=== PATIENT | female | born 1940 | race Caucasian/White ===

== ENCOUNTER 2019-04-01 10:15 | Outpatient (RCR) | payer MEDICARE, SELFPAY | END 2019-04-14 00:01 | LOC: LAB 10:15 | PROVIDERS: Family Provider Nurse Practitioner Family; Visit Provider Family Medicine | DX: N39.0 Urinary tract infection, site not specified (principal) | CPT/HCPCS: 81001; 87077; 87086 ×2; 87186 ==

== ENCOUNTER 2019-04-30 19:54 | Inpatient (IN) | payer MEDICARE, SELFPAY ==
[2019-04-30 19:55] VITALS: BP 166/81; PULSE 93; RESP 18; TEMP 37.6; O2SAT 94; BMI 29.0
--- NOTE | 2019-04-30 19:55 | ED_ITS ---
Entered by Joanna Burger, acting as scribe for Tommy Rendon MD HPI - Extremity Problem General: Chief complaint: Extremity Problem,Nontraumatic Stated complaint: lower extermity problem Time Seen by Provider: 04/30/19 19:56 Source: patient and EMS Mode of arrival: EMS Limitations: no limitations History of Present Illness: HPI Narrative: 78 y/o female presents to the ED with compalint of left lower extremity problem. Pt is from [facility]. EMS reports this has been going on for about a month. Tonight she had a doppler which showed minimal vascular flow. She had no prior hx of vascular dz. Complaint: extremity pain and cold extremity Onset (ago): month(s) (1) Pain Consistency: constant Location: left and lower extremity Quality: aching and constant Relieving factors: nothing Associated symptoms: Deny chest pain, fever(s) or rash Review of Systems Const: Denies: fever or chills Eyes: Denies: change in vision ENMT: Denies: throat pain or mouth pain Card: Denies: chest pain Resp: Denies: shortness of breath GI: Denies: abdominal pain, nausea, vomiting or diarrhea : Denies: difficulty urinating Musc: Denies: back pain or joint pain Skin/Breast: Denies: rash Neuro: Denies: headache or behavioral changes Psych: Denies: depression Endo: Denies: excessive urination Lloyd/Lymph: Denies: easy bruising All/Imm: Denies: hives PFSH ED PFSH: Statuses (acute, chronic, etc) shown below reflect problem list status as previously entered and may not be historically accurate Social History Smoking and tobacco status: former smoker Physical Exam Const: COMMON NORMALS: no apparent distress, oriented x3 and healthy appearing HENMT: COMMON NORMALS: normocephalic and external nose normal HEAD & SCALP: normocephalic NOSE: external nose normal Eye: COMMON NORMALS: PERRL PUPIL: Yes PERRL Neck/C-Spine: COMMON NORMALS: full ROM and no lymphadenopathy Chest: COMMONS NORMALS: inspection of chest normal Resp: COMMON NORMALS: normal respiratory effort, no use of accessory muscles and clear to auscultation bilaterally AUSCULTATION: clear to auscultation bilaterally Cardio: COMMON NORMALS: regular rate and regular rhythm RATE: regular rate RHYTHM: regular rhythm GI: COMMON NORMALS: normal to inspection, nondistended, normoactive bowel sounds, soft to palpation, non-tender and no masses PALPATION: Yes soft Back/Pelvis: THORACIC SPINE/UPPER BACK: Yes normal to inspection Extremity: GENERAL: Yes cyanosis (left LE) LEFT LOWER EXTREMITY: Yes ankle joint and Yes foot & digits OTHER: foot chilled, to the touch, minimal pulse Neuro: COMMON NORMALS: oriented x3 Psych: COMMON NORMALS: mental status grossly normal and cooperative Skin: COMMON NORMALS: negative for no mottling Course Vital Signs: Vital signs: Vital Signs Temperature 98.0 F 04/30/19 21:07 Pulse Rate 88 04/30/19 22:22 Respiratory Rate 16 04/30/19 22:22 Blood Pressure 129/74 04/30/19 22:22 Pulse Oximetry 92 04/30/19 22:22 MDM - Extremity (Nontraumatic) MDM Narrative: Medical decision making narrative: Patient presents here with left lower extremity pain. Ultrasound does show limited flow in femoral artery with slight flow in per posterior tibial artery and no flow in pedal artery. Patient also has DVT in popliteal. I spoke to Dr. Jean-Baptiste of cardiology and will admit on heparin he is going to take the Animation Producer tomorrow for possible stenti ng. Spoke to hospitalist will admit patient overnight. Patient is been stable here. Patient has no signs of acute ischemic emboli event. Lab Data: Labs: Lab Results 04/30/19 04/30/19 04/30/19 Range/Units 19:42 19:42 19:42 WBC 8.4 (4.0-10.0) 10^3/ uL RBC 3.32 L (4.1-5.3) 10^6/u L Hgb 9.5 L (11.5-15.3) g/dL Hct 29.7 L (37.0-47.0) % MCV 89.5 (81-99) fL MCH 28.6 (28.0-34.0) pg MCHC 32.0 (30.0-36.0) g/dL RDW 13.1 (12.1-15.1) % Plt Count 278 (130-400) 10^3/c mm MPV 9.0 (7.4-10.4) fL Neut % (Auto) 74.3 % Lymph % (Auto) 16.5 % [place] % (Auto) 8.3 % Eos % (Auto) 0.6 % Baso % (Auto) 0.1 % Neut # (Auto) 6.3 (1.8-7.7) 10^3/u L Lymph # (Auto) 1.4 (0.8-4.8) 10^3/u L [place] # (Auto) 0.7 (0.2-0.9) 10^3/u L Eos # (Auto) 0.1 (0.0-0.8) 10^3/u L Baso # (Auto) 0.0 (0.0-0.1) 10^3/u L Nucleated RBC % (a uto) 0 % Nucleated RBCs # 0.0 /100WBC PT 13.80 H (10.5-13.3) SECO NDS INR 1.02 (0.8-1.2) Sodium 129 L (136-145) mmol/L Potassium 4.9 (3.5-5.1) mmol/L Chloride 90 L (98-107) mmol/L Carbon Dioxide 26 (22-29) mmol/L Anion Gap 17.9 (5-19) BUN 40 H (8-23) mg/dL Creatinine 1.0 H (0.5-0.9) mg/dL Glucose 155 H (74-106) mg/dL Calcium 10.2 (8.8-10.2) mg/Dl 04/30/19 Range/Units 21:17 WBC (4.0-10.0) 10^3/ uL RBC (4.1-5.3) 10^6/u L Hgb (11.5-15.3) g/dL Hct (37.0-47.0) % MCV (81-99) fL MCH (28.0-34.0) pg MCHC (30.0-36.0) g/dL RDW (12.1-15.1) % Plt Count 236 (130-400) 10^3/c mm MPV (7.4-10.4) fL Neut % (Auto) % Lymph % (Auto) % [place] % (Auto) % Eos % (Auto) % Baso % (Auto) % Neut # (Auto) (1.8-7.7) 10^3/u L Lymph # (Auto) (0.8-4.8) 10^3/u L [place] # (Auto) (0.2-0.9) 10^3/u L Eos # (Auto) (0.0-0.8) 10^3/u L Baso # (Auto) (0.0-0.1) 10^3/u L Nucleated RBC % (a uto) % Nucleated RBCs # /100WBC PT (10.5-13.3) SECO NDS INR (0.8-1.2) Sodium (136-145) mmol/L Potassium (3.5-5.1) mmol/L Chloride (98-107) mmol/L Carbon Dioxide (22-29) mmol/L Anion Gap (5-19) BUN (8-23) mg/dL Creatinine (0.5-0.9) mg/dL Glucose (74-106) mg/dL Calcium (8.8-10.2) mg/Dl Discharge Plan Discharge Admit Provider: Lisa Mclean Coding Level of Care Code ED Food Service Specialist for Chg Fwd Exam Problem Focused The documentation recorded by the Tao simon Ashley, accurately reflects the service I personally performed and the decisions made by me, Tommy Rendon MD Apr 30, 2019 19:54
--- NOTE | 2019-04-30 19:56 | USCV_ITS ---
Keya De La Cruz Age: 78 Gender: F : 1940 Exam Date: 04/30/2019 20:20 Ordering Phys: Tommy Rendon MD Technologist: Vinod Parrish [place] [facility] [place] Indication: LT LEG PAIN AND SWELLING HISTORY: Lower extremity swelling. PROCEDURES: Venous duplex imaging was performed in only the left lower extremity. The following venous structures were evaluated: common femoral vein, profunda vein, proximal portion of the greater saphenous vein, superficial femoral vein, and the popliteal vein. In addition, the posterior tibial and peroneal trunk were evaluated. FINDINGS: THERE IS NON OCCULDING DVT IN THE LT FEM VEIN AND LT POPLETEAL. Echogenic material was noted in the femoral and popliteal vein on the left side which were partially compressible CONCLUSIONS Features of deep vein thrombosis involving the left femoral and popliteal veins causing partial occlusion No similar previous studies available for comparison Dr Abdirizak Catherine MD [facility] (Electronically Signed) Final Date: 01 May 2019 01:20 S
--- NOTE | 2019-04-30 19:56 | USCV_ITS ---
Keya De La Cruz Age: 78 Gender: F : 1940 Exam Date: 04/30/2019 20:11 Ordering Phys: Tommy Rendon MD Technologist: Vinod Parrish Exam Location: [facility] [place] Indication: COLD PAINFULL LT FOOT Risk Factors: Previous Vascular Surgery: RIGHT LEFT BP: 134.0 / 74.00 BP: 134.0/ 72.00 0 0 Waveform Velocity (cm/s) Velocity (cm/s) Waveform Iliac Prox 60.7 Biphasic Iliac Mid 72.5 Biphasic Iliac Distal 72.0 Biphasic CAREER COUNSELOR Monophasic 397.0 SFA Prox 69.1 Monophasic SFA Mid 58.6 Monophasic SFA Dist 54.1 Monophasic POP 14.0 Monophasic COOK CHEF N/A DPA 10.9 Monophasic FINDINGS 90 PERCENT STENOSIS IN LT CAREER COUNSELOR NO FLOW IN LT COOK CHEF TRICKLE FLOW IN LT COOK CHEF. PATIENT COULD NOT TOLERATE FARHAN. Markedly elevated Doppler velocity at the level of the common femoral artery Monophasic and continuous Doppler waveforms in the superficial femoral, popliteal and infrapopliteal vessels CONCLUSIONS 1. Features of high-grade stenosis at the level of the common femoral artery on the left side with possible collateral filling in the femoral, popliteal and infrapopliteal vessels. 2. Possible total occlusion of the posterior tibial artery on the left side. No similar previous studies available for comparison Dr Abdirizak Catherine MD [facility] (Electronically Signed) Final Date: 01 May 2019 01:16 S
--- NOTE | 2019-04-30 20:07 | PC.NURSE ---
unable to assess SI/[place] scale due to patient condition.
[2019-04-30 20:23] LABS: Basophils % 0.1 %; Eosinophils # 0.1 10^3/uL (0.0-0.8); Eosinophils % 0.6 %; Hematocrit 29.7 % (37.0-47.0); Hemoglobin 9.5 g/dL (11.5-15.3); Lymphocytes # 1.4 10^3/uL (0.8-4.8); Lymphocytes % 16.5 %; Mean Corpuscular Hemoglobin 28.6 pg (28.0-34.0); Mean Corpuscular Volume 89.5 fL (81-99); Monocytes # 0.7 10^3/uL (0.2-0.9); Monocytes % 8.3 %; Neutrophils # 6.3 10^3/uL (1.8-7.7); Neutrophils % 74.3 %; Nucleated Red Blood Cells % 0 %; Platelet Count 278 10^3/cmm (130-400); Red Blood Count 3.32 10^6/uL (4.1-5.3); Red Cell Distribution Width 13.1 % (12.1-15.1); White Blood Count 8.4 10^3/uL (4.0-10.0)
[2019-04-30 20:27] LABS: INR 1.02 (0.8-1.2)
[2019-04-30 20:37] LABS: Anion Gap 17.9 (5-19); Blood Urea Nitrogen 40 mg/dL (8-23); Calcium 10.2 mg/Dl (8.8-10.2); Carbon Dioxide 26 mmol/L (22-29); Chloride 90 mmol/L (98-107); Glucose 155 mg/dL (74-106); Potassium 4.9 mmol/L (3.5-5.1); Sodium 129 mmol/L (136-145)
[2019-04-30 21:07] VITALS: BP 134/69; PULSE 97; RESP 16; TEMP 36.7; O2SAT 95
[2019-04-30 21:23] LABS: Platelet Count 236 10^3/cmm (130-400)
[2019-04-30] MEDS: heparin 5,000 unit/mL INJ 1 mL 4000 UNIT IVP (21:51)
[2019-04-30] MEDS: heparin drip 25,000 UNIT/500 ML PREMIX 19.6 UNIT IV (21:53)
[2019-04-30 22:22] VITALS: BP 129/74; PULSE 88; RESP 16; O2SAT 92
--- NOTE | 2019-04-30 23:02 | PM.HP ---
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 for evaluation of left lower extremity pain and swelling that has been ongoing for several days now. History obtained from daughters at bedside as patient has underlying dementia and is a poor historian. Some collateral information obtained from review of medical record and skilled nursing documentation. Daughter who also works at the skilled nursing states that patient has had intermittent left lower extremity pain and some swelling in approximately a week ago had an arterial and venous duplex done which from verbal report was negative. There is a report included with her skilled nursing documentation stating that she was found to have extensive bilateral peripheral vascular disease, with suggestion of high-grade stenosis involving the right HAIR TINTER and distal portion of left SFA, thrombosis of the left HOUSING MANAGER and left DPA. There is recommendation for CTA with runoff and this particular report is from scan done today. She had an echo done on 04/22 showing an ejection fraction of 55 to 60% with grade 1 diastolic dysfunction. Work-up in the ER indicates a normal white count at 8.4, hemoglobin of 9.5 with normal platelet count, sodium of 129, BUN of 40, creatinine of 1.0, blood sugar of 155, she has had an arterial and venous duplex done, report is pending but per verbal report shows concern for ischemic limb and evidence of DVT. Dr. Rendon has spoken with Dr. Lindo and plan is for angiogram in a.m., patient to be started on a heparin drip. Her left lower extremity is cooler to the touch, has some 1+ pitting edema and non-palpable though dopplerable peripheral pulses. Vital signs are stable and she is currently on room air saturating at 92%. Discussed findings of imaging with family at bedside. Confirmed that patient's CODE STATUS is DNR/DNI per paperwork provided from skilled nursing. Patient will be n.p.o. pending procedure in a.m. Review of Systems General: Reports: other (Limited as obtained from family at bedside) Const: Denies: fever, chills or change in appetite Eyes: Reports: change in vision Card: Reports: edema and swelling of feet/ankles; Denies: chest pain Resp: Denies: shortness of breath GI: Denies: abdominal pain, nausea or vomiting : Reports: urinary incontinence (At baseline) Musc: Denies: back pain Skin/Breast: Denies: rash Neuro: Reports: weakness in extremities and difficulty walking (At baseline); Denies: numbness in extremities or frequent falls Psych: Reports: memory loss (Chronic) Medications/Allergies Home Medications Medication Instructions Recorded Confirmed Last Taken Type aspirin 81 mg PO DAILY 04/30/19 04/30/19 04/30/19 History 81 mg atorvastatin 10 mg PO DAILY 04/30/19 04/30/19 04/29/19 History clopidogrel 04/30/19 04/30/19 History 75 mg clotrimazole 1 applic TOPICAL BID 04/30/19 04/30/19 04/30/19 History donepezil mg 04/30/19 04/29/19 History gabapentin 04/30/19 04/29/19 History hydrochlorothiazide 04/30/19 04/30/19 History lisinopril 04/30/19 04/29/19 History memantine mg 04/30/19 04/30/19 History polyethylene glycol 3350 04/30/19 04/30/19 History tramadol 100 mg PO DAILY 04/30/19 04/30/19 04/30/19 History venlafaxine 37.5 mg PO 04/30/19 04/30/19 History Allergies Allergy/AdvReac Type Severity Reaction Status Date / Time No Known Allergies Allergy Verified 04/30/19 20:08 PFSH Acute PFSH: Statuses (acute, chronic, etc) shown below reflect problem list status as previously entered and may not be historically accurate Medical History (Updated 04/30/19 @ 23:20 by Lisa Mclean MD) Alzheimer's dementia (Acute) CVA (cerebral vascular accident) (Acute) Depression (Acute) Hyperlipidemia (Acute) Hypertension (Acute) Peripheral vascular disease (Acute) Surgical History (Updated 04/30/19 @ 23:13 by Lisa Mclean MD) History of dilatation and curettage (Acute) Family History (Updated 04/30/19 @ 23:13 by Lisa Mclean MD) Denies family history of CAD (coronary artery disease) Stroke Social History (Updated 04/30/19 @ 23:14 by Lisa Mclean MD) Smoking and tobacco status: former smoker Quit status (tobacco): has quit using tobacco Year quit tobacco: February 2019 Alcohol intake: never Substance/Drug Use: never Housing: Retirement Vitals/I&O/Wt Last Vital Signs Temp 98.0 F 04/30/19 21:07 Pulse 88 04/30/19 22:22 Resp 16 04/30/19 22:22 BP 129/74 04/30/19 22:22 Pulse Ox 92 04/30/19 22:22 Weight last 48 hrs Weight 81.647 kg Physical Exam Const: COMMON NORMALS: no apparent distress GENERAL APPEARANCE: cooperative and comfortable ORIENTATION/CONSCIOUSNESS: Yes awake and Yes confused HENMT: COMMON NORMALS: normocephalic, head/scalp atraumatic, hearing grossly normal bilaterally and moist oral mucous membranes HEAD & SCALP: normocephalic and atraumatic Eye: COMMON NORMALS: PERRL, EOMs intact bilaterally and conjunctivae normal CONJUNCTIVA: Yes conjunctivae normal PUPIL: Yes PERRL OTHER: xanthelasma on both eyelids Neck/C-Spine: COMMON NORMALS: full ROM GENERAL: Yes normal visual inspection and Yes trachea midline Resp: COMMON NORMALS: normal respiratory effort, no retractions, no use of accessory muscles and clear to auscultation bilaterally EFFORT & INSPECTION: Yes able to speak in complete sentences, Yes symmetric chest movement and No tachypneic AUSCULTATION: clear to auscultation bilaterally Cardio: COMMON NORMALS: regular rate, regular rhythm, S1 normal heart sound, S2 normal heart sound and no murmurs RATE: regular rate RHYTHM: regular rhythm HEART SOUNDS: S1 normal and S2 normal GI: COMMON NORMALS: normal to inspection, nondistended, normoactive bowel sounds, soft to palpation and non-tender PALPATION: Yes soft Extremity: COMMON NORMALS: normal to inspection, full ROM and no calf tenderness; negative for no pedal edema GENERAL: Yes edema (1+ pitting edema of bilateral LEs), Yes mottling (LLE) and Yes pulses abnormal (in LLE) Neuro: COMMON NORMALS: moves all extremities, no focal motor deficits and no sensory deficits noted SENSORIUM/ORIENTATION: Yes alert and Yes orientation impaired SPEECH: other (speech difficult to understand) Psych: COMMON NORMALS: cooperative and affect normal SPEECH: Yes normal speech THOUGHT PROCESS: normal thought process Skin: COMMON NORMALS: no rashes or lesions noted, no jaundice, no petechiae and no mottling GENERAL SKIN EXAM: no rashes or lesions noted LESIONS: lesion noted (xanthelasma on bilateral eyelids) Data : 04/30/19 21:17 04/30/19 19:42 A&P Assessment and plan (1) Peripheral vascular disease: -noted PVD with concern for critical limb ischemia given left lower extremity which is cool to the touch, nonpalpable peripheral pulses and evidence of the same on arterial and venous duplex -Follow-up reports of arterial and venous Dopplers -Start on heparin drip due to finding of DVT and for revascularization -Pending peripheral angiogram in a.m. to be done by Dr. Lindo; keep n.p.o. after midnight -Pain control as needed -Gentle IV fluid hydration Status: Acute Code(s): I73.9 - Peripheral vascular disease, unspecified (2) Hypertension: -Has known history of hypertension, has been taking antihypertensive medications for approximately a year per daughter -Continue to monitor vital signs -Hold oral meds for now Status: Acute Qualifiers: Hypertension type: essential hypertension Qualified Code(s): I10 - Essential (primary) hypertension Code(s): I10 - Essential (primary) hypertension (3) Hyperlipidemia: -Check lipid panel in a.m. -Resume statin, will likely need to increase dose Status: Acute Qualifiers: Hyperlipidemia type: unspecified Qualified Code(s): E78.5 - Hyperlipidemia, unspecified Code(s): E78.5 - Hyperlipidemia, unspecified (4) CVA (cerebral vascular accident): -Has prior history of CVA with residual speech impairment and bilateral lower extremity weakness; occurred in February 2019 -Fall precautions Status: Acute Qualifiers: CVA mechanism: other Qualified Code(s): I63.89 - Other cerebral infarction Code(s): I63.9 - Cerebral infarction, unspecified (5) Alzheimer's dementia: -Has known history of Alzheimer's dementia -Strict fall precautions, reorient as needed Status: Acute Qualifiers: Alzheimer's disease onset: unspecified onset Dementia behavioral disturbance: without behavioral disturbance Qualified Code(s): G30.9 - Alzheimer's disease, unspecified; F02.80 - Dementia in other diseases classified elsewhere without behavioral disturbance Code(s): G30.9 - Alzheimer's disease, unspecified; F02.80 - Dementia in other diseases classified elsewhere without behavioral disturbance Additional A&P Information -Depression, anxiety -Chronic diastolic CHF, no acute exacerbation; most recent echo done in 04/22/2019 showing EF=55-60%, G1DD -LIDYA on CKD, unknown stage; baseline Cr wnl; on gentle IVF hydration. Repeat labs in AM -keep NPO for procedure in AM. Her baseline diet is mechanical soft, resume this when appropriate -is able to transfer with assistance, is otherwise chair-or bed-bound -is incontinent of urine at baseline -DVT ppx not needed as she is on heparin drip -Dispo: return to [facility] [place] -Code status: DNR/DNI; confirmed with daughters at bedside, paperwork in chart Attestations Medical Necessity Statement*: Keya De La Cruz's hospital stay will require greater than 2 midnights for acute left lower extremity DVT and critical limb ischemia requiring revascularization. Time Spent in Patient Care: Greater than 35 minutes (>than 50% of time spent in counselling and/or direct pt care on unit). Coding Level of Care Code Acute Tuft Machine Operator for Chg Fwd Diagnoses Peripheral vascular disease I73.9 Hypertension I10 Hypertension type: essential hypertension Hyperlipidemia E78.5 Hyperlipidemia type: unspecified CVA (cerebral vascular accident) I63.89 CVA mechanism: other Alzheimer's dementia G30.9; F02.80 Alzheimer's disease onset: unspecified onset Dementia behavioral disturbance: without behavioral disturbance
--- NOTE | 2019-04-30 23:15 | PM.CONSULT ---
Providers/Reason For Consult Consulting Physican/Specialty*: iNTERVENTIONAL CARDIOLOGY Reason for Consult*: CRITICAL LIMB ISCHEMIA Requesting Physcian: Dr. 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 For the last one month she has continuous pain in the leg and foot. She's not able to move her foot much she also has swelling of the left leg with DVT. Today her pain became unbearable therefore she was brought in to the emergency room. She was noted to have Motor feet. She has some paresthesia she is not able to move toes of the feet. She has absent dorsalis pedis and posterior tibial and popliteal artery pulses are full left leg. She has a good bilateral femoral pulses.In the ER vascular ultrasound was suggestive of severe iliofemoral and popliteal left side stenosis with sluggish blood flow in the foot, It also suggested patient has a DVT of the left leg. Please note that I do not have official report it was conveyed to me by ER staff and physician Review of Systems Const: Denies: fever, chills or body aches Eyes: Reports: change in vision Card: Denies: chest pain, palpitations or irregular heart rhythm Resp: Denies: shortness of breath GI: Denies: abdominal pain, nausea or vomiting Neuro: Reports: weakness in extremities; Denies: headache Meds/Allergies Home Medications and Allergies Home Medications Medication Instructions Recorded Confirmed Type aspirin 81 mg PO DAILY 04/30/19 04/30/19 History atorvastatin 10 mg PO DAILY 04/30/19 04/30/19 History clopidogrel 04/30/19 History clotrimazole 1 applic TOPICAL BID 04/30/19 04/30/19 History donepezil mg 04/30/19 History gabapentin 04/30/19 History hydrochlorothiazide 04/30/19 History lisinopril 04/30/19 History memantine mg 04/30/19 History polyethylene glycol 3350 04/30/19 History tramadol 100 mg PO DAILY 04/30/19 04/30/19 History venlafaxine 37.5 mg PO 04/30/19 History Allergies Allergy/AdvReac Type Severity Reaction Status Date / Time No Known Allergies Allergy Verified 04/30/19 20:08 Current Medications Current Medications Generic Name Dose Route Start Last Admin Trade Name Freq PRN Reason Stop Dose Admin Heparin Sodium/Sodium Chloride 25,000 unit in 500 mls @ 19.595 mls/hr 04/30/19 21:45 04/30/19 21:53 Heparin Drip IV 12 unit/kg/hr .Q24H LEANN 19.6 mls/hr Administration 12 UNIT/KG/HR PFSH Acute PFSH: Statuses (acute, chronic, etc) shown below reflect problem list status as previously entered and may not be historically accurate Medical History (Updated 04/30/19 @ 23:20 by Lisa Mclean MD) Alzheimer's dementia (Acute) CVA (cerebral vascular accident) (Acute) Depression (Acute) Hyperlipidemia (Acute) Hypertension (Acute) Peripheral vascular disease (Acute) Family History Denies family history of CAD (coronary artery disease) Stroke Social History Smoking and tobacco status: former smoker Quit status (tobacco): has quit using tobacco Year quit tobacco: February 2019 Alcohol intake: never Substance/Drug Use: never Housing: [facility] Vitals/I&O/Wt Last Vital Signs Temp 98.0 F 04/30/19 21:07 Pulse 88 04/30/19 22:22 Resp 16 04/30/19 22:22 BP 129/74 04/30/19 22:22 Pulse Ox 92 04/30/19 22:22 Weight last 48 hrs Weight 180 lb Physical Exam Narrative: EXAM NARRATIVE: GENERAL: Patient is alert, awake but not very urine. Due to underlying dementia. She has both daughter by bedside who is interpreting for her. NECK: No jugular vein distension. HEART: Regular S1 and S2. No murmur, rub or gallop. LUNGS: Clear to auscultate bilaterally. ABDOMEN: Soft, nontender and nondistended. Positive bowel sounds. No guarding, rebound or tenderness. CENTRAL NERVOUS SYSTEM: Grossly nonfocal. EXTREMITIES: Lower extremities with 1+ edema left leg. Left foot more controlled slightly cold but not good capillary refill. Left foot painful to touch. Absent dorsalis pedis and posterior tibial pulses. Absent popliteal left pulses. Positive both femoral pulses. A&P Assessment and plan (1) Critical limb ischemia with history of revascularization of same extremity: Patient has critical limb ischemia of left foot and leg. This is going on for long period of time. At this point I'm not sure how much heart foot is viable. She has underlying dementia. Both her daughters by bedside we have detailed discussion regarding risk benefit and alternative for the procedure. They would like to proceed with Peripheral angiogram and intervention . I will start her on heparin drip tonight. Pain will be controlled. She will be nothing by mouth after midnight. We'll proceed with peripheral angiogram/percutaneous angioplasty if required in the morning. Status: Acute Code(s): I99.8 - Other disorder of circulatory system; Z95.9 - Presence of cardiac and vascular implant and graft, unspecified (2) Hyperlipidemia: She will be on statin. Status: Acute Code(s): E78.5 - Hyperlipidemia, unspecified (3) Hypertension: Blood pressure is optimally controlled. Status: Acute Code(s): I10 - Essential (primary) hypertension Coding Level of Care Code Acute Professor Of Sport Management for Sai Powers History Detailed Exam Detailed Medical Decision Making Moderate Complexity Diagnoses Critical limb ischemia with history of revascularization of same extremity I99.8; Z95.9 Hyperlipidemia E78.5 Hypertension I10
[2019-04-30 23:49] VITALS: BP 137/79; PULSE 90; RESP 16; O2SAT 93
[2019-05-01] VITALS (23 sets, daily range): BP systolic 104–190; BP diastolic 53–132; PULSE 60–154; RESP 18–22; TEMP 36.3–36.6; O2SAT 93–100; BMI 29.0
[2019-05-01 00:31] LABS: Glucose Point of Care 130 mg/dL (70-110)
[2019-05-01] MEDS: sodium chloride 0.9% 1,000 ML 75 ML IV ×2 (00:43→18:04)
[2019-05-01] MEDS: atorvastatin 40 mg Tablet 20 MG PO ×2 (00:44→21:59)
[2019-05-01 04:09] LABS: Basophils % 0.2 %; Eosinophils # 0.1 10^3/uL (0.0-0.8); Eosinophils % 0.9 %; Hematocrit 27.4 % (37.0-47.0); Hemoglobin 8.8 g/dL (11.5-15.3); Lymphocytes # 1.2 10^3/uL (0.8-4.8); Lymphocytes % 22.9 %; Mean Corpuscular HGB Conc 32.1 g/dL (30.0-36.0); Mean Corpuscular Hemoglobin 28.7 pg (28.0-34.0); Mean Corpuscular Volume 89.3 fL (81-99); Mean Platelet Volume 8.9 fL (7.4-10.4); Monocytes # 0.5 10^3/uL (0.2-0.9); Monocytes % 9.3 %; Neutrophils # 3.6 10^3/uL (1.8-7.7); Neutrophils % 66.3 %; Nucleated Red Blood Cells % 0 %; Platelet Count 249 10^3/cmm (130-400); Red Blood Count 3.07 10^6/uL (4.1-5.3); Red Cell Distribution Width 13.1 % (12.1-15.1); White Blood Count 5.4 10^3/uL (4.0-10.0)
[2019-05-01 04:14] LABS: Anion Gap 15.6 (5-19); Carbon Dioxide 27 mmol/L (22-29); Chloride 97 mmol/L (98-107); Chol HDL Ratio 4.25 mg/dL (0.0-4.40); Cholesterol 204 mg/dL (0-200); Glucose 116 mg/dL (74-106); HDL Cholesterol 48 mg/dL (60-100); LDL Cholesterol Calculated 128 mg/dL (50-129); LDL HDL Ratio 2.67 RATIO (0.00-3.22); Magnesium 2.3 mg/dL (1.7-2.3); Partial Thromboplastin Time 90.7 SECONDS (23.9-36.7); Potassium 4.6 mmol/L (3.5-5.1); Sodium 135 mmol/L (136-145); Triglycerides 139 mg/dL (0-150)
[2019-05-01 05:05] LABS: Blood Urea Nitrogen 32 mg/dL (8-23)
[2019-05-01] MEDS: diphenhydrAMINE 50 mg Capsule PO (06:20)
--- NOTE | 2019-05-01 07:00 | XACV_ITS ---
Ht: 168 cm Wt: 82 kg BSA: 1.97 m2 Any Known Allergies: No known allergies Gender: Female : 1940 Exam Type: Invasive Peripheral Vascular Procedure(s): Procedure Description: Peripheral Cath Diagnostic Procedure Procedure Description: Abdominal aortic angiography Procedure Description: Lower extremities' angiography Procedure Description: Peripheral vascular Intervention Procedure Description: PV Balloon Procedure Description: PV Atherectomy Exam Priority: Routine Lower Extremity Interventional Findings Peripheral Procedure Description: Critical limb ischemia of the left foot with paresthesia, Ara grade V :Viktoriya stage IV. ProcedureRight common femoral approach was adopted. Abdominal aortic angiogram was performed which showed moderate abdominal aortic aneurysm, both renal arteries have luminal irregularity without significant stenosis #1 Right and left common iliac artery has luminal irregularity#2 Left and right external iliac artery has luminal irregularity#3 Left Profunda femoral artery is chronically 100% occluded, right profunda has luminal irregularity#5 Left and right internal iliac artery has luminal irregularities#6 Left and right common femoral artery has luminal irregularity#9 Left proximal SFA has proximal severe calcified 90% stenosis. Mid to distal left SFA is 100% chronically occluded . #10 Left popliteal arteries , left tibioperoneal trunk left peroneal and distal tibial artery is 100% occluded no flow noted below the knee. Scant flow reconstitution noted in the tibioperoneal trunk with somewhat flow towards proximal left anterior tibial artery.#12 Below the left knee no flow noted.#13 Left foot does not have circulation .#14 Rght SFA has distal moderate stenosis, right below the knee 2 vessel runoff with anterior tibial and peroneal was noted. Right posterior tibial is chronically occluded.Right femoral artery was used to approach left SFA, anterior tibial and foot arch vascular system. CSI atherectomy using 1.25mm mary was used in proximal, mid to distal left SFA, left popliteal artery and in tibio peroneal trunk into left anterior tibial vessel. Multiple balloon angioplasty of mid to distal left anterior tibial artery and foot arch was used by using 2.0 mm balloon, 4.0 ARMADA balloon was used to dilated popliteal artery and tibioperoneal trunk. Multiple balloon angioplasty of proximal and mid to distal left SFA was performed with 5.0 ARMADA balloon. Please see him mentally for all the instruments. Excellent angiographic result with good flow below the knee with one-vessel runoff was noted. At the end left foot appeared to be pink, warm moist. Palpable anterior tibial pulse and dorsalis pedis was also noted.. Recommendations 1-Return to inpatient for close monitoring and routine cath care2-Risk factor modification for secondary prevention3-Statin and aspirin 81 mg life-long, if tolerated4-Continue Eliquis for DVT and PAD along with baby Asprin and protonix5-Continue optimal medical management6-Follow up with Dr. Lindo in four weeks and your primary care in 10 days. Access Site Site: Right Femoral artery Sheath Size: 6 Fr Hemost... Success: Unsuccessful Procedure Details Findings Due to computer glitch, some notes may be out of correct sequence. Hand injection performed. Glidewire inserted. Glidewire out. Glidewire inserted at 0800. 6FR sheath exchanged for 6FR 42cm Flexor sheath at 0804. Anesthesia notified for assistance with case at 0757. BELGICA Hunter arrived to assist with sedation at 0808. Left leg runoff performed at 10mL for a total of 30mL. Seeker inserted over the glidewire at 0819. Sedation handled by Elsa Thomas CRNA starting at 0816. Wire out at 0823. Hand injection performed at 0923. Wire out 0825. Hand injection performed after wire out. Wire reinserted at 0825. Glidewire removed and Viper wire inserted at 0828. Seeker removed at 0830. [place] inserted at 0834. Atherectomy performed in the left SFA at 0837. Atherectomy performed in the Left Popliteal at 0840. Mary removed at 0841. Results checked at 0841. Seeker inserted over the wire at 0841. Seeker removed over the glidewire at 08:44:43. Family updated at 08:45:04. Balloon removed at 08:54:48. Results checked at 08:55:18. Balloon out at 09:01:01. Checking results at 10mL for a total of 30mL at 09:02:09. Seeker inserted at 09:03:57. [place] wire out and Command wire inserted 09:04:40. Seeker out at 09:06:40. Balloon out at 09:16:52. Results checked at 09:17:30. Balloon out at 09:26:15. Seeker inserted over the wire at 09:27:20. Command wire out at 09:28:07. Hand injection performed through the seeker at 09:29:17. Glidewire inserted at 09:31:09. Wire out at 09:31:54. 6FR 42cm long flexor sheath exchanged for 6FR regular sheath. Runoff of right leg performed at 10mL for a total of 30mL at 09:35:37. Procedure Consent Obtained. Pre-Procedure Time Out. Identified patient by full name and date of as verbalized by the patient/guarantor. Does the consent match the physician's order: Yes. Accurate & Complete Informed Consent: Yes. Inpatient/Outpatient History & Physical on Chart: Yes. If H&P is completed, is and addenduem needed: No; If yes, is the addendum complete: N/A. Visualize and Verify Site with Patient/Guarantor: N/A. Relevant Radiology Images available: Yes. Pre-op teaching completed and patient verbalized understanding. The risks, benefits, and alternatives of sedation and/or procedure were discussed by physician. The patient agrees to continue. Correct patient, site and procedure confirmed by cath team. Current diagnosis: Peripheral Arterial Disease. PERRLA. Strong, equal hand stock supervisor bilaterally. Lungs clear x 5 lobes. IV Site on Arrival: 20 gauge in the left anticubital. IV Fluids: 0.9% NaCl at KVO. 0 mL infused prior to recyclable materials distributor. Oxygen started at 2liters/min via nasal canula. bilateral groins was prepped with chloroprep then draped in the usual sterile fashion. Physician notified. Pre Procedural Pulses: right dorsalis pedis was Doppled. Pre Procedural Pulses: left dorsalis pedis was Absent. Pre Procedural Pulses: right posterior tibial was Doppled. Pre Procedural Pulses: left posterior tibial was Absent. Baseline sample Acquired. HR: 96 BPM. Equipment: Peripheral. Cardiac Cath Pack. ACIST Manifold Kit Model BT 2000. Heparinized Saline (2 units/mL), 1000 mL bag. Physician arrived. Physician scrubbed in. Immediate Pre-Procedure Time Out. Correct Patient: Yes; Correct Procedure: Yes; Correct Site: Yes; Correct Patient Position: Yes; Correct Supplies: Yes; Dried Flammable Prep: Yes; Blood Products Available: No;. Procedure started. Lidocaine 1% infiltrated to the right groin. Arterial access obtained with micropuncture set. A 5FR Contra catheter in over wire. Abdominal aortogram performed in AP @ 10 mL/sec for a total of 30 mL. Catheter removed over the glide wire. ACT drawn. Results 131 seconds. Therapeutic limits - pre-heparin administration 90-150 seconds and monitoring heparin during a vascular procedure >250 seconds. Side port of sheath attached to Normal Saline flush at KVO to maintain patency. Inflation number : 1 A AB [place] [employer] COUNSELOR Catheter [id number] was prepped and advanced across the Tibial Peroneal Trunk, Left , then inflated to 6 ARANZA for 2:03 seconds. Inflation number: 2 The AB [place] [employer]IAL COUNSELOR Catheter [id number] was reinflated across the Tibial Peroneal Trunk, Left, to 4 ARANZA for 1:27 seconds. Inflation number: 1 The AB [place] 35 [employer] COUNSELOR Catheter [id number] was reinflated across the Distal Superficial Femoral, Left, to 10 ARANZA for 1:03 seconds. Inflation number : 1 A AB ARMADA 14 OTW [id number] was prepped and advanced across the Distal Anterior Tibial, Left , then inflated to 8 ARANZA for 1:04 seconds. Inflation number: 2 The AB ARMADA 14 OTW [id number] was reinflated across the Distal Anterior Tibial, Left, to 12 ARANZA for 1:05 seconds. Inflation number: 3 The AB ARMADA 14 OTW [id number] was reinflated across the Distal Anterior Tibial, Left, to 12 ARANZA for 0:33 seconds. Inflation number: 4 The AB ARMADA 14 OTW [id number] was reinflated across the Distal Anterior Tibial, Left, to 13 ARANZA for 0:32 seconds. Inflation number: 5 The AB ARMADA 14 OTW [id number] was reinflated across the Distal Anterior Tibial, Left, to 2 ARANZA for 0:35 seconds. Inflation number: 6 The AB ARMADA 14 OTW [id number] was reinflated across the Distal Anterior Tibial, Left, to 8 ARANZA for 1:02 seconds. Inflation number: 7 The AB ARMADA 14 OTW [id number] was reinflated across the Distal Anterior Tibial, Left, to 8 ARANZA for 1:01 seconds. Inflation number: 8 The AB ARMADA 14 OTW [id number] was reinflated across the Distal Anterior Tibial, Left, to 8 ARANZA for 1:02 seconds. ACT drawn. Results 155 seconds. Therapeutic limits - pre-heparin administration 90-150 seconds and monitoring heparin during a vascular procedure >250 seconds. PERRLA. Strong, equal hand stock supervisor bilaterally. No VTE prophylaxis required. Medication's Wasted: Nitro = 49.7 mg. Medication's Wasted: Verapamil = 2.5 mg. Medication's Wasted: Lidocaine 1% = 10 mL. Medication's Wasted: Other = Hydralazine 10 mg. Total IV fluids: 132 mL. Contrast type used: Visipaque 320 mgI/mL, 500 mL bottle. Post-op diagnosis: Peripheral Arterial Disease. Complications: None. Vital chart was stopped. Estimated blood loss: 5mL-10mL. Procedure completed. Patient transferred by bed to 1st floor. Procedure Medications Start: 7:49 AM Stop: 7:49 AM Medication: Versed Amount: 0.5 mg Route: I.V. Start: 7:51 AM Stop: 7:51 AM Medication: Versed Amount: 0.5 mg Route: I.V. Start: 7:52 AM Stop: 7:52 AM Medication: Hydralazine Amount: 10 mg Route: I.V. Start: 7:54 AM Stop: 7:54 AM Medication: Versed Amount: 0.5 mg Route: I.V. Start: 7:55 AM Stop: 7:55 AM Medication: Lopressor (metoprolol) Amount: 5 mg Route: I.V. Start: 7:56 AM Stop: 7:56 AM Medication: Versed Amount: 0.5 mg Route: I.V. Start: 8:17 AM Stop: 8:17 AM Medication: Heparin Amount: 5000 units Route: I.V. Start: 9:28 AM Stop: 9:28 AM Medication: Nitrogylcerin Amount: 200 mcg Route: I.A. Start: 9:31 AM Stop: 9:31 AM Medication: Heparin Amount: 4000 units Route: I.V. I, the attending physician, have reviewed and verified all procedure medications. Yes, all medications given per verbal order History/Risk Factors Hypertension: Yes Dyslipidemia: Yes Peripheral Arterial Disease (PAD): Yes Myocardial Infarction (IL): No Obesity: No Renal Disease: No Tobacco Use: Current/Recent(w/in 1 year) Prior Interventions PCI: No CABG: No Valve Surgery: No Report Signatures Finalized by:Zulema Lindo MD on 05/01/2019 12:22:00 PM
[2019-05-01 07:08] LABS: Glucose Point of Care 134 mg/dL (70-110)
[2019-05-01 08:43] LABS: Estmated Average Glucose 126
--- NOTE | 2019-05-01 08:49 | PC.NURSE ---
this nurse gave report on this pt to Brooks RN on 1st floor in [facility].
--- NOTE | 2019-05-01 10:00 | PC.NURSE ---
FROM MECHANICAL INSULATOR Patient is in bed, mildy restless but eyes were closed. Pericare provided and brief change due to urine incontinence. BOTTOM HOOP DRIVER and geophysical laboratory supervisor nurses at bedside. Pt had a baseline dementia, restlessness and agitation during the procedure. Right groin site has a small and transparent dressing. no hematoma, bleeding felt around the groin area post perclose on right femoral artery by . Neurovascular checks and monitored. Pt has warmth skin on her bilateral foot, redness noted on left toes, pulses are dopplerable and left dorsalis pedis has 2+ palpable pulse with in room. Pt does have a DVT on left leg per Dr upon rounding and dgtr is aware of it. VS monitored. Dgtr instructed to keep her right leg still and bedrest for another 2-4 hrs post angiogram. bed alarm on. will monitor.
--- NOTE | 2019-05-01 10:06 | PM.PN ---
Subjective Subjective: Interval history: Patient underwent peripheral angiogram this morning for acute on chronic limb ischemia/limb salvage procedure Vitals/I&O/Wt Last Vital Signs Temp 97.8 F 05/01/19 04:00 Pulse 60 05/01/19 04:00 Resp 18 05/01/19 04:00 BP 141/67 05/01/19 04:00 Pulse Ox 94 05/01/19 04:00 04/30/19 05/01/19 05/01/19 22:59 06:59 14:59 Intake Total 555.337 / 555.337 Balance 555.337 / 555.337 Weight last 48 hrs Weight 180 lb 1 oz Weight 180 lb Physical Exam Narrative: EXAM NARRATIVE: GENERAL: Patient is alert, awake but not very urine. Due to underlying dementia. She has both daughter by bedside who is interpreting for her. NECK: No jugular vein distension. HEART: Regular S1 and S2. No murmur, rub or gallop. LUNGS: Clear to auscultate bilaterally. ABDOMEN: Soft, nontender and nondistended. Positive bowel sounds. No guarding, rebound or tenderness. CENTRAL NERVOUS SYSTEM: Grossly nonfocal. EXTREMITIES: Lower extremities with 1+ edema left leg. Left foot post procedure good Doppler anterior tib and posterior tibial pulse most likely through arch. Now foot is warm and pink Data : 05/01/19 03:40 05/01/19 03:40 A&P Assessment and plan (1) Critical limb ischemia with history of revascularization of same extremity: Patient has critical limb ischemia of left foot and leg. This is going on for long period of time. At this point I'm not sure how much her foot is viable. She has underlying dementia. Both her daughters by bedside we have detailed discussion regarding risk benefit and alternative for the procedure. They would like to proceed with Peripheral angiogram and intervention . I will start her on heparin drip tonight. Pain will be controlled. She will be nothing by mouth after midnight. We'll proceed with peripheral angiogram/percutaneous angioplasty if required in the morning. This morning patient underwent peripheral angiogram for limb salvage acute on chronic limb ischemia. She was found to have severely stenotic ostial left SFA 100% chronically occluded left profunda and 100% occluded mid to distal SFA, popliteal, tibioperoneal trunk no flow was seen below the knee. Patient underwent atherectomy of ostial mid and distal left SFA followed by atherectomy of the tibioperoneal trunk into left anterior tibial. Distal anterior tibial and arch vessels in the foot were also balloon angioplasty. Good angiographic result with congregation of flow from SFA to the foot noted. One-vessel runoff into the arch with anterior tibial was noted. Posterior tibial and peroneal chronically occluded however feels somewhat from collaterals in the mid and very distal in the foot. Postprocedure good dopplerable anterior and posterior tibial pulses were noted. Foot look good pink warm and moist. Patient has chronic anemia baseline hemoglobin around 8.8. She also has DVT. At this point we recommend transfusion followed by Eliquis which will also cover peripheral vascular disease as well. Protonix should be given as well. She also has moderate right SFA with chronic 100% occlusion of posterior tibial with good one-vessel runoff on the right side. Status: Acute Code(s): I99.8 - Other disorder of circulatory system; Z95.9 - Presence of cardiac and vascular implant and graft, unspecified (2) Hyperlipidemia: She will be on statin. Status: Acute Qualifiers: Hyperlipidemia type: unspecified Qualified Code(s): E78.5 - Hyperlipidemia, unspecified Code(s): E78.5 - Hyperlipidemia, unspecified (3) Hypertension: Blood pressure is optimally controlled. Status: Acute Qualifiers: Hypertension type: essential hypertension Qualified Code(s): I10 - Essential (primary) hypertension Code(s): I10 - Essential (primary) hypertension (4) DVT (deep venous thrombosis): Patient will be started on Eliquis as soon as she will complete bedrest. We will stop Plavix and aspirin since she is anemic at the baseline and high risk for bleeding. Status: Acute Code(s): I82.409 - Acute embolism and thrombosis of unspecified deep veins of unspecified lower extremity Attestations Medical Necessity Statement*: Patient require continuation hospitalization for above defined care. Coding Level of Care Code Acute Flange Turner for Sai Powers History Detailed Exam Detailed Medical Decision Making High Complexity Diagnoses Critical limb ischemia with history of revascularization of same extremity I99.8; Z95.9 Hyperlipidemia E78.5 Hyperlipidemia type: unspecified Hypertension I10 Hypertension type: essential hypertension DVT (deep venous thrombosis) I82.409
[2019-05-01] MEDS: TRAMadol 50 mg Tablet 100 MG PO (11:37)
[2019-05-01] MEDS: pantoprazole 40 mg SDV IVP (11:37)
[2019-05-01] MEDS: aspirin 81 mg EC Tablet PO (11:37)
[2019-05-01] MEDS: clopidogrel 75 mg Tablet PO (11:38)
[2019-05-01 11:57] LABS: Glucose Point of Care 101 mg/dL (70-110)
[2019-05-01 15:55] LABS: Glucose Point of Care 169 mg/dL (70-110)
[2019-05-01] MEDS: memantine 5 mg tablet 10 MG PO (17:51)
[2019-05-01] MEDS: gabapentin 100 mg Capsule PO (17:52)
[2019-05-01] MEDS: lisinopril 20 mg Tablet PO (17:52)
[2019-05-01 19:05] LABS: Hematocrit 27.4 % (37.0-47.0); Hemoglobin 8.6 g/dL (11.5-15.3)
--- NOTE | 2019-05-01 19:37 | PM.PN ---
Subjective Subjective: Interval history: overnight labs, H&P reviewed. Patient is s/p atheretcomy of ZAKIRusty harrison today with good peripheral flow. No acute complaints when seen this afternoon. Pain currently well controlled Medications: Reviewed: Yes Vitals/I&O/Wt Last Vital Signs Temp 97.4 F L 05/01/19 15:31 Pulse 76 05/01/19 15:31 Resp 18 05/01/19 15:31 BP 155/77 05/01/19 15:31 Pulse Ox 94 05/01/19 15:31 05/01/19 05/01/19 05/01/19 06:59 14:59 22:59 Intake Total 555.337 / 555.337 963.75 / 963.75 360 / 1323.75 Balance 555.337 / 555.337 963.75 / 963.75 360 / 1323.75 Weight last 48 hrs Weight 81.675 kg Weight 81.647 kg Physical Exam Narrative: EXAM NARRATIVE: GEn: asleep when first seen, wakes up easily to calling name, no complaints at this time CVS:S1S2 N RS: clear to auscultation B/L Abd: Soft, NT/ND, BS+ Neuro: no focal deficits Ext: Left dorsalis pedis palpabale, foot well perfused Data : 05/01/19 18:51 05/01/19 03:40 A&P Assessment and plan (1) Peripheral vascular disease: -noted PVD with concern for critical limb ischemia given left lower extremity which is cool to the touch, nonpalpable peripheral pulses and evidence of the same on arterial and venous duplex - LE duplex showed Features of high-grade stenosis at the level of the common femoral artery on the left side with possible collateral filling in the femoral, popliteal and infrapopliteal vessels and Possible total occlusion of the posterior tibial artery on the left side. Venous duplex with deep vein thrombosis involving the left femoral and popliteal veins causing partial occlusion. - s/p atherectomy earlier this afternoon with balloon dilatation - started on ASA and plavix thereafter Status: Acute Code(s): I73.9 - Peripheral vascular disease, unspecified (2) Hypertension: -Has known history of hypertension - resume oral Lisinopril. Hold HCTZ for now. 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; occurred in February 2019 -Fall precautions Status: Acute Qualifiers: CVA mechanism: other Qualified Code(s): I63.89 - Other cerebral infarction Code(s): I63.9 - Cerebral infarction, unspecified (5) Alzheimer's dementia: -Has known history of Alzheimer's dementia -Strict fall precautions, reorient as needed - resume home dose of Namenda Status: Acute Qualifiers: Alzheimer's disease onset: unspecified onset Dementia behavioral disturbance: without behavioral disturbance Qualified Code(s): G30.9 - Alzheimer's disease, unspecified; F02.80 - Dementia in other diseases classified elsewhere without behavioral disturbance Code(s): G30.9 - Alzheimer's disease, unspecified; F02.80 - Dementia in other diseases classified elsewhere without behavioral disturbance (6) DVT (deep venous thrombosis): Since patient also has DVT, will switch treatment from ASA + Plavix to ASA + Eliquis this evening with close monitoring of H&H. Transfuse packed cells if Hb <7 Status: Acute Code(s): I82.409 - Acute embolism and thrombosis of unspecified deep veins of unspecified lower extremity Additional A&P Information Tramadol for pain control. -Dispo: return to [facility] [place] -Code status: DNR/DNI; confirmed with daughters at bedside, paperwork in chart Attestations Medical Necessity Statement*: post atherectomy monitoring, managemnet of DVT Coding Level of Care Code Acute Licensed Massage Therapist for [facility] Fwd Diagnoses Peripheral vascular disease I73.9 Hypertension I10 Hypertension type: essential hypertension Hyperlipidemia E78.5 Hyperlipidemia type: unspecified CVA (cerebral vascular accident) I63.89 CVA mechanism: other Alzheimer's dementia G30.9; F02.80 Alzheimer's disease onset: unspecified onset Dementia behavioral disturbance: without behavioral disturbance DVT (deep venous thrombosis) I82.409
[2019-05-01] MEDS: donepezil 5 MG Tablet PO (21:59)
[2019-05-01 23:54] LABS: Hematocrit 27.7 % (37.0-47.0); Hemoglobin 8.6 g/dL (11.5-15.3)
[2019-05-02] VITALS (56 sets, daily range): BP systolic 97–191; BP diastolic 48–109; PULSE 58–161; RESP 18–23; TEMP 36.6–36.8; O2SAT 92–97
[2019-05-02] MEDS: acetaminophen 325 mg Tablet 650 MG PO (00:23)
[2019-05-02 05:40] LABS: Eosinophils % 0.8 %; Hematocrit 26.4 % (37.0-47.0); Hemoglobin 8.2 g/dL (11.5-15.3); Lymphocytes # 1.1 10^3/uL (0.8-4.8); Lymphocytes % 23.5 %; Mean Corpuscular HGB Conc 31.1 g/dL (30.0-36.0); Mean Corpuscular Hemoglobin 28.2 pg (28.0-34.0); Mean Corpuscular Volume 90.7 fL (81-99); Mean Platelet Volume 8.6 fL (7.4-10.4); Monocytes # 0.5 10^3/uL (0.2-0.9); Monocytes % 9.9 %; Neutrophils # 3.1 10^3/uL (1.8-7.7); Neutrophils % 65.6 %; Nucleated Red Blood Cells % 0 %; Platelet Count 244 10^3/cmm (130-400); Red Blood Count 2.91 10^6/uL (4.1-5.3); White Blood Count 4.7 10^3/uL (4.0-10.0)
[2019-05-02] MEDS: sodium chloride 0.9% 1,000 ML 75 ML IV (05:54)
[2019-05-02 06:05] LABS: Alanine Aminotransferase 14 U/L (0-33); Albumin Level 3.4 g/dL (3.5-5.2); Alkaline Phosphatase 84 IU/L (35-105); Anion Gap 12.4 (5-19); Aspartate Amino Transferase 17 U/L (0-32); Blood Urea Nitrogen 20 mg/dL (8-23); Calcium 9.5 mg/Dl (8.8-10.2); Carbon Dioxide 26 mmol/L (22-29); Chloride 102 mmol/L (98-107); Globulin 3.1 g/dL (1.3-4.6); Glucose 94 mg/dL (74-106); Potassium 4.4 mmol/L (3.5-5.1); Sodium 136 mmol/L (136-145); Total Bilirubin 0.3 mg/dL (0.15-1.2); Total Protein 6.5 g/dL (6.6-8.7)
--- NOTE | 2019-05-02 07:34 | P.PN_ITS ---
Subjective Subjective: Interval history: Patient was sent here from a group home in [place] on evening some 2 nights ago with a cold painful left foot. She was placed on heparin and then underwent catheterization yesterday with atherectomy and angioplasty. There was significant disease from the proximal SFA all the way down. Additionally, she was diagnosed with a deep vein thrombosis on the left and is on the loading dose of Eliquis. She has underlying dementia. Her daughter is in the room this morning. The patient lives in a group home where the daughter works. Her daughter is concerned that she would not be able to ride in the daughter's car when she leaves here to go back to the group home. The daughter is requesting a transport van to get her back there. The patient does not have any complaints. She is having much less pain in the left leg today. Medications: Reviewed: Yes Vitals/I&O/Wt Last Vital Signs Temp 98 F 05/02/19 04:00 Pulse 74 05/02/19 04:00 Resp 22 H 05/02/19 04:00 BP 155/69 05/02/19 04:00 Pulse Ox 93 05/02/19 04:00 05/01/19 05/02/19 05/02/19 22:59 06:59 14:59 Intake Total 420 / 1383.75 987.5 / 2371.25 Balance 420 / 1383.75 987.5 / 2371.25 Weight last 48 hrs Weight 179 lb 14.4 oz Weight 180 lb 1 oz Weight 180 lb Physical Exam Narrative: EXAM NARRATIVE: GENERAL: She appears comfortable at rest HEENT: Exam within normal limits. NECK: Supple without jugular vein distention. The carotid upstroke is normal without bruits. BACK: Exam normal. LUNGS: Clear. HEART: Regular rate and rhythm. ABDOMEN: Benign without organomegaly or tenderness. EXTREMITIES: The right groin entry site is free of significant bleeding. There is a small bruise there. There is a normal pulse in the right groin. The left leg is warm however the foot is red with some dependent rubor. There is some pain on palpation of the leg. NEUROLOGIC: Exam normal. Patient is pleasantly demented with some confusion and disorientation. There is decreased sensation in the left leg below the knee. SKIN: Unremarkable. Data : 05/02/19 05:09 05/02/19 05:09 A&P Assessment and plan (1) DVT (deep venous thrombosis): Status: Acute Qualifiers: DVT location: lower extremity Affected thrombotic vein of extremity: femoral Chronicity: chronic Laterality: left Qualified Code(s): I82.512 - Chronic embolism and thrombosis of left femoral vein Code(s): I82.409 - Acute embolism and thrombosis of unspecified deep veins of unspecified lower extremity (2) Critical limb ischemia with history of revascularization of same extremity: Status: Acute Code(s): I99.8 - Other disorder of circulatory system; Z95.9 - Presence of cardiac and vascular implant and graft, unspecified (3) Hyperlipidemia: Status: Acute Qualifiers: Hyperlipidemia type: unspecified Qualified Code(s): E78.5 - Hyperlipidemia, unspecified Code(s): E78.5 - Hyperlipidemia, unspecified (4) Peripheral vascular disease: Status: Acute Code(s): I73.9 - Peripheral vascular disease, unspecified (5) CVA (cerebral vascular accident): Status: Acute Qualifiers: CVA mechanism: other Qualified Code(s): I63.89 - Other cerebral infarction Code(s): I63.9 - Cerebral infarction, unspecified (6) Hypertension: Status: Acute Qualifiers: Hypertension type: essential hypertension Qualified Code(s): I10 - Essential (primary) hypertension Code(s): I10 - Essential (primary) hypertension (7) Alzheimer's dementia: Status: Acute Qualifiers: Alzheimer's disease onset: unspecified onset Dementia behavioral disturbance: without behavioral disturbance Qualified Code(s): G30.9 - Alzheimer's disease, unspecified; F02.80 - Dementia in other diseases classified elsewhere without behavioral disturbance Code(s): G30.9 - Alzheimer's disease, unspecified; F02.80 - Dementia in other diseases classified elsewhere without behavioral disturbance (8) Anemia: Status: Acute Code(s): D64.9 - Anemia, unspecified (9) Anticoagulation adequate: Status: Acute Code(s): Z79.01 - snf (current) use of anticoagulants (10) DNR (do not resuscitate): Status: Acute Code(s): Z66 - Do not resuscitate Additional A&P Information Patient is improved from a vascular standpoint. She could probably go back to the group home anytime. She is not particularly active. She should remain on Eliquis 10 mg twice a day for a week and then decrease the dose to 5 mg twice daily. She will follow-up with Dr. Lindo in the office. She could participate in physical therapy and occupational therapy at the group home. Attestations Medical Necessity Statement*: Not applicable Coding Level of Care Code Acute Ladies' Locker Room Attendant for [facility] Fwd History Detailed Exam Detailed Medical Decision Making Moderate Complexity Diagnoses DVT (deep venous thrombosis) I82.512 DVT location: lower extremity Affected thrombotic vein of extremity: femoral Chronicity: chronic Laterality: left Critical limb ischemia with history of revascularization of same extremity I99.8; Z95.9 Hyperlipidemia E78.5 Hyperlipidemia type: unspecified Peripheral vascular disease I73.9 CVA (cerebral vascular accident) I63.89 CVA mechanism: other Hypertension I10 Hypertension type: essential hypertension Alzheimer's dementia G30.9; F02.80 Alzheimer's disease onset: unspecified onset Dementia behavioral disturbance: without behavioral disturbance Anemia D64.9 Anticoagulation adequate Z79.01 DNR (do not resuscitate) Z66 Time Spent (min) 32
[2019-05-02] MEDS: lisinopril 20 mg Tablet PO (08:16)
[2019-05-02] MEDS: hydroCHLOROthiazide 25 mg Tablet PO (08:16)
[2019-05-02] MEDS: TRAMadol 50 mg Tablet 100 MG PO (08:16)
[2019-05-02] MEDS: memantine 5 mg tablet 10 MG PO (08:16)
[2019-05-02] MEDS: gabapentin 100 mg Capsule PO (08:17)
[2019-05-02] MEDS: aspirin 81 mg EC Tablet PO (08:24)
[2019-05-02] MEDS: apixaban 5 mg Tablet 10 MG PO (08:24)
[2019-05-02] MEDS: pantoprazole 40 mg SDV IVP (08:25)
[2019-05-02] MEDS: clotrimazole 1% cream 30 gm 1 APPLIC TOPICAL (08:26)
--- NOTE | 2019-05-02 08:30 | PC.NURSE ---
Left leg elevated- left foot is warm to touch, pitting edema noted +2 on top of left foot and ankle. palpable pulses. Right groin dressing remains C/D/I. no hematoma or swelling noted. palpable pulses +3 on right DP and PT.
[2019-05-02] MEDS: venlafaxine ER (24HR) 37.5 mg Capsule PO (09:32)
--- NOTE | 2019-05-02 10:47 | P.DS_ITS ---
Discharge Providers Date of Admission: 04/30/19 22:13 Date of Discharge: 05/02/19 Attending Provider at Admission: Lisa Mclean MD Attending Provider at Discharge: Megan Weir MD Diagnoses at Discharge Discharge Diagnosis (1) DVT (deep venous thrombosis): Status: Acute Qualifiers: DVT location: lower extremity Affected thrombotic vein of extremity: femoral Chronicity: chronic Laterality: left Qualified Code(s): I82.512 - Chronic embolism and thrombosis of left femoral vein (2) Critical limb ischemia with history of revascularization of same extremity: Status: Acute (3) Hyperlipidemia: Status: Acute Qualifiers: Hyperlipidemia type: unspecified Qualified Code(s): E78.5 - Hyp erlipidemia, unspecified (4) Peripheral vascular disease: Status: Acute (5) Hypertension: Status: Acute Qualifiers: Hypertension type: essential hypertension Qualified Code(s): I10 - Essential (primary) hypertension (6) Alzheimer's dementia: Status: Acute Qualifiers: Alzheimer's disease onset: unspecified onset Dementia behavioral disturbance: without behavioral disturbance Qualified Code(s): G30.9 - Alzheimer's disease, unspecified; F02.80 - Dementia in other diseases classified elsewhere without behavioral disturbance (7) Anemia: Status: Acute (8) Anticoagulation adequate: Status: Acute (9) DNR (do not resuscitate): Status: Acute Reason for Visit Reason for Visit: Reason For Visit: pain and swelling of LLE Hospital Course Discharge Summary: This is a 78-year-old female who was brought in by her family from the correction with chief complaints of left lower extremity pain. Lower extremity venous duplex showed DVT in the left femoral and popliteal veins causing partial occlusion.. Arterial Doppler initially showed features of high-grade stenosis at the level of the common femoral artery on the left side with possible collateral filling in the femoral popliteal and infrapopliteal vessels. Total occlusion of the posterior tibial artery was also noted on the left side. She underwent lower extremity angiogram and was found to have severely stenotic ostial left SFA 100% chronically occluded left profunda and 100% occluded mid to distal SFA, popliteal, tibioperoneal trunk no flow was seen below the knee. Patient underwent atherectomy of ostial mid and distal left SFA followed by atherectomy of the tibioperoneal trunk into left anterior tibial. Distal anterior tibial and arch vessels in the foot were also balloon angioplasty. Good angiographic result with rastafarian of flow from SFA to the foot noted. One-vessel runoff into the arch with anterior tibial was noted. Posterior tibial and peroneal chronically occluded however feels somewhat from collaterals in the mid and very distal in the foot. Postprocedure good dopplerable anterior and posterior tibial pulses were noted. Foot looks pink warm and moist. Patient has chronic anemia baseline hemoglobin around 8.8. She also has DVT. In view of noted peripheral artery disease and DVT she was started on Eliquis with recommendations to get loading dose of 10 mg twice a day for 7 days followed by reduction of dose to 5 mg twice a day. Plavix has been discontinued. She should follow with career information specialist Dr. Lindo within 1 week her hemoglobin at the time of discharge is at 8.2. She remained hemodynamically stable. It is recommended to check hemoglobin and hematocrit every day over the next 3 days to ensure that there is no further drop in hemoglobin. Threshold for transfusion would be at less than 7 or hemodynamic instability. Heart rate as noted in our system is between 1 31-1 50s, however these are spuriously numbers as on telemetry her heart rate has ranged between 70-90 at the same time. Physical Exam Narrative: EXAM NARRATIVE: GEn: Awake alert CVS:S1S2 N RS: clear to auscultation B/L Abd: Soft, NT/ND, BS+ Neuro: no focal deficits Ext: Left dorsalis pedis palpabale, foot well perfused Discharge Data Data Completed and Pending: Completed Studies During Hospitalization Category Date Time Status SPIKE MACHINE HEATER request for service Routin e Exams 05/01/19 07:00 [place] [id number] Urge nt Ultrasound 04/30/19 19:56 [place] [id number] Urgent Ultrasound 04/30/19 19:56 Completed Labs from last 24 hours 05/02/19 05/02/19 05/01/19 05:09 05:09 23:19 WBC 4.7 RBC 2.91 L Hgb 8.2 L 8.6 L Hct 26.4 L 27.7 L MCV 90.7 MCH 28.2 MCHC 31.1 RDW 13.0 Plt Count 244 MPV 8.6 Neut % (Auto) 65.6 Lymph % (Auto) 23.5 Nance % (Auto) 9.9 Eos % (Auto) 0.8 Baso % (Auto) 0.0 Neut # (Auto) 3.1 Lymph # (Auto) 1.1 Nance # (Auto) 0.5 Eos # (Auto) 0.0 Baso # (Auto) 0.0 Nucleated RBC % (a uto) 0 Nucleated RBCs # 0.0 Sodium 136 Potassium 4.4 Chloride 102 Carbon Dioxide 26 Anion Gap 12.4 BUN 20 Creatinine 0.9 Glucose 94 POC Glucose Calcium 9.5 Total Bilirubin 0.3 AST 17 ALT 14 Alkaline Phosphata se 84 Total Protein 6.5 L Albumin 3.4 L Globulin 3.1 05/01/19 05/01/19 05/01/19 18:51 15:34 11:35 WBC RBC Hgb 8.6 L Hct 27.4 L MCV MCH MCHC RDW Plt Count MPV Neut % (Auto) Lymph % (Auto) Nance % (Auto) Eos % (Auto) Baso % (Auto) Neut # (Auto) Lymph # (Auto) Nance # (Auto) Eos # (Auto) Baso # (Auto) Nucleated RBC % (a uto) Nucleated RBCs # Sodium Potassium Chloride Carbon Dioxide Anion Gap BUN Creatinine Glucose POC Glucose 169 101 Calcium Total Bilirubin AST ALT Alkaline Phosphata se Total Protein Albumin Globulin Vitals: Last Vital Signs Temp 98.2 F 05/02/19 07:56 Pulse 131 H 05/02/19 07:56 Resp 18 05/02/19 07:56 BP 155/94 05/02/19 07:56 Pulse Ox 94 05/02/19 07:56 Discharge Plan Discharge Patient Disposition: Xfer SNF Condition: Stable Prescriptions: New Eliquis 5 mg Tablet 10 mg PO BID 30 Days Qty: 60 RF: 0 folic acid 1 mg tablet 1 mg PO DAILY Qty: 30 RF: 0 Protonix [address] for susp in packet 40 mg PO DAILY Qty: 30 RF: 0 polysaccharide iron complex 200 mg iron capsule 200 mg PO DAILY Qty: 30 RF: 0 Continued aspirin 81 mg Tablet,Delayed Release (Dr/Ec) 81 mg PO DAILY RF: 0 atorvastatin 10 mg Tablet 10 mg PO DAILY RF: 0 donepezil 5 mg Tablet 5 mg PO DAILY RF: 0 gabapentin 100 mg Capsule 100 mg PO DAILY RF: 0 hydrochlorothiazide 25 mg Tablet 25 mg PO DAILY RF: 0 lisinopril 20 mg Tablet 20 mg PO DAILY RF: 0 polyethylene glycol 3350 17 gram Powder In Packet 17 g PO PRN RF: 0 tramadol 100 mg Tablet Extended Release 24 Hr 100 mg PO DAILY RF: 0 venlafaxine 37.5 mg Tablet 37.5 mg PO BID RF: 0 clotrimazole 1 % Cream 1 applic TOPICAL BID RF: 0 melatonin 10 mg Tablet Extended Release 10 mg PO BEDTIME RF: 0 memantine 10 mg Tablet 10 mg PO BID RF: 0 Senna-S 8.6-50 mg Tablet 1 tab-cap PO BID RF: 0 acetaminophen 650 mg Tablet Extended Release 650 mg PO Q6H PRN (Reason: Pain) RF: 0 alprazolam 0.25 mg Tablet 0.25 mg PO BID PRN (Reason: Anxiety) RF: 0 bisacodyl 10 mg Suppository 10 mg VA PRN PRN (Reason: Constipation) RF: 0 bisacodyl 10 mg Suppository 10 mg VA DAILY PRN (Reason: Constipation) RF: 0 Enema 19-7 gram/118 mL Enema 118 ml VA DAILY PRN (Reason: Constipation) RF: 0 Discontinued clopidogrel 75 mg Tablet 75 mg PO DAILY RF: 0 No Action Milk of Magnesia 400 mg/5 mL Suspension 30 mg PO PRN PRN (Reason: Constipation) RF: 0 Discharge Orders: Discharge Order (Routine); Ordered 05/02/19 Ordered By: Megan Weir Other Ambulatory Orders: Hemoglobin and Hematocrit (Routine) Timeframe: 3 Days Location: LAB Ordered By: Megan Weir Referrals: Zulema Lindo MD [Physician] - 1 week Discharge Diet: Usual diet Discharge Activity: As per cardiac/pulm rehab instructions Activity Restrictions/Additional Instructions: check hemoglobin and hematocrit daily over next 3 days as patient has been newly started on eliquis in a background of chronic anemia Discharge Attestations Time Spent in Discharge Care*: greater than 30 min Quality Metrics Clinical Quality Measures During this hospital stay, did patient experience: VTE Contraindication to Overlap Therapy: Overlap therapy prescribed VTE Discharge Education: Education about anticoagulant therapy/Care Notes given, Education about treatment options/disease process, Medication side effects education and Follow-up arranged Coding Level of Care Code 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 [employer] [employer] Diagnoses DVT (deep venous thrombosis) I82.512 DVT location: lower extremity Affected thrombotic vein of extremity: femoral Chronicity: chronic Laterality: left Critical limb ischemia with history of revascularization of same extremity I99.8; Z95.9 Hyperlipidemia E78.5 Hyperlipidemia type: unspecified Peripheral vascular disease I73.9 Hypertension I10 Hypertension type: essential hypertension Alzheimer's dementia G30.9; F02.80 Alzheimer's disease onset: unspecified onset Dementia behavioral disturbance: without behavioral disturbance Anemia D64.9 Anticoagulation adequate Z79.01 DNR (do not resuscitate) Z66
--- NOTE | 2019-05-02 15:13 | PC.NURSE ---
Hand-off report/transition back to SNF Talked to Lorena castro [facility] regarding pt's discharge plans and new discharge meds. Awaiting for transport.
--- NOTE | 2019-05-02 15:26 | PC.NURSE ---
Donn beck stretcher here to transport pt to SNF Daughter at bedside.
== END 2019-05-02 15:26 | disposition skilled nursing facility (03) | DRG 271 ==
LOC: ER 21:07 → MEDSURG 22:49 → CSU 05-01 10:11
PROVIDERS: Internal Medicine Cardiovascular Disease; Admitting Provider Family Medicine; Emergency Provider Emergency Medicine; Family Provider Nurse Practitioner Family; Visit Provider Student in an Organized Health Care Education/Training Program
DX: I82.512 Chronic embolism and thrombosis of left femoral vein (principal); I69.351 Hemiplegia and hemiparesis following cerebral infarction affecting right dominant side; N17.9 Acute kidney failure, unspecified; E78.5 Hyperlipidemia, unspecified; G30.9 Alzheimer's disease, unspecified; F02.80 Dementia in other diseases classified elsewhere, unspecified severity, without behavioral disturbance, psychotic disturbance, mood disturbance, and anxiety; Z66 Do not resuscitate; F32.9 Major depressive disorder, single episode, unspecified; I10 Essential (primary) hypertension; I69.328 Other speech and language deficits following cerebral infarction; I69.344 Monoplegia of lower limb following cerebral infarction affecting left non-dominant side; Z79.02 Long term (current) use of antithrombotics/antiplatelets; Z79.82 Long term (current) use of aspirin; Z79.899 Other long term (current) drug therapy; Z87.891 Personal history of nicotine dependence; N18.9 Chronic kidney disease, unspecified; I12.9 Hypertensive chronic kidney disease with stage 1 through stage 4 chronic kidney disease, or unspecified chronic kidney disease; I99.8 Other disorder of circulatory system; I82.432 Acute embolism and thrombosis of left popliteal vein; D64.9 Anemia, unspecified; I73.9 Peripheral vascular disease, unspecified
CPT/HCPCS: 12345; 36415; 36416; 37224; 37225; 75625; 75716; 80048; 80053; 80061; 82962; 83036; 83735; 85014; 85018; 85025; 85049; 85347; 85610; 85730; 93926; 93971; 96365; 96366; 96374; 96375; 99281; C1724; C1725; C1760; C1769; C1887; C1894; C9113; J0360; J1644; J2001; J2250; J3010; J3490; J7030; Q0163; Q9967

== ENCOUNTER 2019-05-04 09:23 | Outpatient (RCR) | payer OTHER, SELFPAY ==
[2019-05-04 09:55] LABS: Eosinophils # 0.1 10^3/uL (0.0-0.8); Eosinophils % 1.4 %; Hematocrit 26.5 % (37.0-47.0); Hemoglobin 8.4 g/dL (11.5-15.3); Lymphocytes # 1.2 10^3/uL (0.8-4.8); Lymphocytes % 23.4 %; Mean Corpuscular HGB Conc 31.7 g/dL (30.0-36.0); Mean Corpuscular Hemoglobin 28.6 pg (28.0-34.0); Mean Corpuscular Volume 90.1 fL (81-99); Mean Platelet Volume 9.1 fL (7.4-10.4); Monocytes # 0.4 10^3/uL (0.2-0.9); Monocytes % 8.4 %; Neutrophils # 3.4 10^3/uL (1.8-7.7); Neutrophils % 66.4 %; Nucleated Red Blood Cells % 0 %; Platelet Count 287 10^3/cmm (130-400); Red Blood Count 2.94 10^6/uL (4.1-5.3); Red Cell Distribution Width 13.1 % (12.1-15.1); White Blood Count 5.1 10^3/uL (4.0-10.0)
[2019-05-04 10:34] LABS: Alanine Aminotransferase 16 U/L (0-33); Albumin Level 3.5 g/dL (3.5-5.2); Alkaline Phosphatase 87 IU/L (35-105); Anion Gap 16.5 (5-19); Aspartate Amino Transferase 22 U/L (0-32); Blood Urea Nitrogen 25 mg/dL (8-23); Calcium 9.9 mg/Dl (8.8-10.2); Carbon Dioxide 25 mmol/L (22-29); Chloride 97 mmol/L (98-107); Chol HDL Ratio 4.76 mg/dL (0.0-4.40); Cholesterol 181 mg/dL (0-200); Free T4 Free Thyroxine 1.09 ng/dL (0.82-1.77); Globulin 3.5 g/dL (1.3-4.6); Glucose 115 mg/dL (74-106); HDL Cholesterol 38 mg/dL (60-100); LDL Cholesterol Calculated 115 mg/dL (50-129); LDL HDL Ratio 3.03 RATIO (0.00-3.22); Potassium 4.5 mmol/L (3.5-5.1); Sodium 134 mmol/L (136-145); Thyroid Stimulating Hormone 0.17 uIU/mL (0.27-4.20); Total Bilirubin 0.2 mg/dL (0.15-1.2); Triglycerides 138 mg/dL (0-150)
[2019-05-06 11:01] LABS: Basophils % 0.2 %; Eosinophils # 0.1 10^3/uL (0.0-0.8); Eosinophils % 0.8 %; Hematocrit 29.6 % (37.0-47.0); Hemoglobin 9.1 g/dL (11.5-15.3); Lymphocytes # 1.2 10^3/uL (0.8-4.8); Lymphocytes % 17.5 %; Mean Corpuscular HGB Conc 30.7 g/dL (30.0-36.0); Mean Corpuscular Hemoglobin 28.4 pg (28.0-34.0); Mean Corpuscular Volume 92.5 fL (81-99); Monocytes # 0.3 10^3/uL (0.2-0.9); Monocytes % 5.1 %; Neutrophils % 76.1 %; Nucleated Red Blood Cells % 0 %; Platelet Count 376 10^3/cmm (130-400); Red Cell Distribution Width 13.2 % (12.1-15.1); White Blood Count 6.6 10^3/uL (4.0-10.0)
== END 2019-05-15 23:59 | disposition home or self-care (01) ==
LOC: LAB 09:23
PROVIDERS: Family Provider Nurse Practitioner Family; Visit Provider Family Medicine
DX: D64.9 Anemia, unspecified (principal); E78.5 Hyperlipidemia, unspecified; I10 Essential (primary) hypertension; D50.9 Iron deficiency anemia, unspecified
CPT/HCPCS: 80053; 80061; 84439; 84443; 85025

== ENCOUNTER 2019-05-05 10:27 | Outpatient (RCR) | payer MEDICARE, SELFPAY ==
[2019-05-05 11:29] LABS: Basophils % 0.1 %; Eosinophils % 0.4 %; Hematocrit 29.8 % (37.0-47.0); Hemoglobin 9.1 g/dL (11.5-15.3); Lymphocytes # 0.9 10^3/uL (0.8-4.8); Mean Corpuscular HGB Conc 30.5 g/dL (30.0-36.0); Mean Corpuscular Hemoglobin 29.2 pg (28.0-34.0); Mean Corpuscular Volume 95.5 fL (81-99); Monocytes # 0.3 10^3/uL (0.2-0.9); Monocytes % 4.5 %; Neutrophils # 5.9 10^3/uL (1.8-7.7); Neutrophils % 82.6 %; Nucleated Red Blood Cells % 0 %; Platelet Count 327 10^3/cmm (130-400); Red Blood Count 3.12 10^6/uL (4.1-5.3); Red Cell Distribution Width 13.1 % (12.1-15.1); White Blood Count 7.1 10^3/uL (4.0-10.0)
== END 2019-05-15 23:59 | disposition home or self-care (01) ==
LOC: LAB 10:27
PROVIDERS: Family Provider Nurse Practitioner Family; Visit Provider Dermatology
DX: D50.9 Iron deficiency anemia, unspecified (principal); E78.5 Hyperlipidemia, unspecified; I10 Essential (primary) hypertension
CPT/HCPCS: 85025

== ENCOUNTER 2019-07-21 13:25 | Emergency (ER) | payer MEDICARE, SELFPAY ==
[2019-07-21 13:28] VITALS: BP 149/80; PULSE 90; RESP 16; TEMP 36.5; O2SAT 96; BMI 25.0
--- NOTE | 2019-07-21 13:34 | USCV_ITS ---
Keya De La Cruz Age: 78 Gender: F : 1940 Exam Date: 07/21/2019 14:01 Ordering Phys: Ernestine Godoy Technologist: Sharyn Hope Exam Location: [facility] [place] Indication: COLD FOOT, NO PULSES Risk Factors: Previous Vascular Surgery: RIGHT LEFT Waveform Velocity (cm/s) Velocity (cm/s) Waveform Iliac Prox 74.9 Monophasic Iliac Mid Monophasic 66.1 Iliac Distal 69.1 Monophasic SPEECH WRITER 60.3 Monophasic SFA Prox 55.9 Monophasic SFA Mid 24.6 Monophasic SFA Dist 28.6 Monophasic POP 23.0 Monophasic BALANCE RECESSER N/A DPA N/A FINDINGS Monophasic and continues low velocity waveforms in the mid to distal SFA and the popliteal artery. No Doppler signals are noted in the posterior tibial and dorsalis pedis arteries. Moderate to heavy plaques in the iliac and femoral artery on the left side CONCLUSIONS 1. Features of total occlusion of the posterior tibial and dorsalis pedis artery on the left side. 2. Abnormal Doppler waveform in the superficial femoral and popliteal artery, suggestive of collateral filling 3. FARHAN was not obtained Compared to the study from 04/30/2019, there seems to be a progression of disease with occlusion of the dorsalis pedis artery Dr Abdirizak Catherine MD [facility] (Electronically Signed) Final Date: 21 July 2019 17:32 S
--- NOTE | 2019-07-21 13:35 | ED_ITS ---
Documented by User: AMOS Smith 07/22/19 17:18 HPI - Extremity Problem General: Chief complaint: Extremity Problem,Nontraumatic Stated complaint: left leg pain Time Seen by Provider: 07/21/19 13:34 Source: EMS and other (daughter via phone) Mode of arrival: ambulatory Limitations: language barrier and altered mental status History of Present Illness: HPI Narrative: Patient is a 78-year-old female with severe Alzheimer's dementia here sent from the longterm for complaints of a cold left foot that they noticed earlier this morning. Patient also has a past medical history of previous CVA, HTN, hyperlipidemia, PVD. All history was obtained from longterm report and patient's daughter. Patient had an arterial occlusion to the left lower extremity in April 2019. She underwent arthrectomies of the mid and distal left SFA as well as her tibial peroneal trunk. She had balloon angioplasty to the distal anterior tibial artery. After that procedure report states that flow from her SFA to the foot was noted. She was placed on Eliquis following the surgery as she was also noted to have a DVT in the left extremity. MD Complaint: extremity pain and cold extremity Onset (ago): hour(s) Pain Consistency: constant Location: left Review of Systems General: Reports: ROS unobtainable due to mental status PFSH ED PFSH: Medical History (Updated 07/21/19 @ 15:37 by AMOS Smith) Alzheimer's dementia Anemia COPD (chronic obstructive pulmonary disease) CVA (cerebral vascular accident) Depression DVT (deep venous thrombosis) Hyperlipidemia Hypertension Peripheral vascular disease Tobacco abuse, in remission Surgical History History of dilatation and curettage Social History Smoking and tobacco status: smoker, details unknown Quit status (tobacco): has quit using tobacco Year quit tobacco: February 2019 Alcohol intake: never Housing: [facility] Physical Exam Const: COMMON NORMALS: no apparent distress, alert and well nourished Resp: COMMON NORMALS: normal respiratory effort and clear to auscultation bilaterally AUSCULTATION: clear to auscultation bilaterally Cardio: COMMON NORMALS: regular rate and regular rhythm RATE: regular rate RHYTHM: regular rhythm Extremity: OTHER: Patient has a mottled appearing left foot without palpable DP or PT pulses; these could not be found with a Doppler either; there is obvious coolness to the foot when compared to her right; femoral pulses intact Neuro: SENSORIUM/ORIENTATION: Yes alert Course Consultations: Consultation #1: Dr. Jones-due to patient already feeling a previous arthrectomy and developing new clot while on Eliquis he felt patient most likely would require a higher level of care and vascular specialty. Consultation #2: Dr. May vascular surgery. Stated he would be happy to consult on patient and requested ED to ED transfer. He too feared the overall outcome of patient's leg and stated leg amputation as a possible outcome. Did not request heparin drip as she is already on Eliquis. Consultation #3: Dr. Villalba ED. Accepts pt through their ED Vital Signs: Vital signs: Vital Signs Temperature 97.7 F 07/21/19 13:28 Pulse Rate 88 07/21/19 15:46 Respiratory Rate 18 07/21/19 15:46 Blood Pressure 109/64 07/21/19 15:46 Pulse Oximetry 98 07/21/19 15:46 MDM - Extremity (Nontraumatic) Lab Data: Labs: Lab Results 07/21/19 07/21/19 07/21/19 Range/Units 13:55 13:55 13:55 WBC 5.7 (4.0-10.0) 10^3/ uL RBC 4.05 L (4.1-5.3) 10^6/u L Hgb 11.6 (11.5-15.3) g/dL Hct 39.7 (37.0-47.0) % MCV 98.0 (81-99) fL MCH 28.6 (28.0-34.0) pg MCHC 29.2 L (30.0-36.0) g/dL RDW 13.3 (12.1-15.1) % Plt Count 244 (130-400) 10^3/c mm MPV 9.4 (7.4-10.4) fL Neut % (Auto) 68.4 % Lymph % (Auto) 23.7 % [place] % (Auto) 7.7 % Eos % (Auto) 0.0 % Baso % (Auto) 0.0 % Neut # (Auto) 3.9 (1.8-7.7) 10^3/u L Lymph # (Auto) 1.4 (0.8-4.8) 10^3/u L [place] # (Auto) 0.4 (0.2-0.9) 10^3/u L Eos # (Auto) 0.0 (0.0-0.8) 10^3/u L Baso # (Auto) 0.0 (0.0-0.1) 10^3/u L Nucleated RBC % (a uto) 0 % Nucleated RBCs # 0.0 /100WBC PT 15.60 H (10.5-13.3) SECO NDS INR 1.20 (0.8-1.2) APTT 29.5 (23.9-36.7) SECO NDS Sodium 148 H (136-145) mmol/L Potassium 4.3 (3.5-5.1) mmol/L Chloride 108 H (98-107) mmol/L Carbon Dioxide 27 (22-29) mmol/L Anion Gap 17.3 (5-19) BUN 66 H (8-23) mg/dL Creatinine 1.6 H (0.5-0.9) mg/dL Glucose 148 H (65-115) mg/dL Calculated Osmolal ity 308 H (285-295) mOsm/k g Calcium 10.5 (8.5-10.5) mg/dL Total Bilirubin 0.3 (0.15-1.2) mg/dL AST 24 (0-32) U/L ALT 19 (0-33) U/L Alkaline Phosphata se 111 H (35-105) IU/L Total Protein 8.7 (6.6-8.7) g/dL Albumin 4.2 (3.5-5.2) g/dL Globulin 4.5 (1.3-4.6) g/dL Imaging Data^: L venous US: My impression: NO DVT PER US TECH L arterial US: My impression: ACUTE ARTERIAL OCCLUSION FROM POPLITEAL ALL THE WAY DOWN PER US TECH Discharge Plan Discharge Patient Disposition: Transfer to ED Clinical Impression: Occlusion of left popliteal-tibial artery Condition: Stable Prescriptions: No Action ferrous sulfate 325 mg (65 mg iron) Tablet 325 mg PO DAILY RF: 0 MediHoney (honey) 80 % Gel 1 applic TOPICAL DAILY RF: 0 Eliquis 5 mg Tablet 5 mg PO BID RF: 0 Pro-Stat AWC 17-100 gram-kcal/30 mL Liquid 30 ea PO BID RF: 0 melatonin 1 mg Tablet Extended Release 1 mg PO BEDTIME RF: 0 aspirin 81 mg Tablet,Delayed Release (Dr/Ec) 81 mg PO DAILY RF: 0 atorvastatin 10 mg Tablet 10 mg PO DAILY RF: 0 donepezil 5 mg Tablet 5 mg PO DAILY RF: 0 gabapentin 100 mg Capsule 100 mg PO DAILY RF: 0 hydrochlorothiazide 25 mg Tablet 25 mg PO DAILY RF: 0 lisinopril 20 mg Tablet 20 mg PO DAILY RF: 0 polyethylene glycol 3350 17 gram Powder In Packet 17 g PO PRN RF: 0 tramadol 100 mg Tablet Extended Release 24 Hr 100 mg PO Q4H PRN (Reason: Pain) RF: 0 venlafaxine 37.5 mg Tablet 37.5 mg PO BID RF: 0 clotrimazole 1 % Cream 1 applic TOPICAL BID RF: 0 memantine 10 mg Tablet 10 mg PO BID RF: 0 magnesium hydroxide [Milk of Magnesia] 400 mg/5 mL Suspension 30 mg PO PRN PRN (Reason: Constipation) RF: 0 bisacodyl 10 mg Suppository 10 mg MS PRN PRN (Reason: Constipation) RF: 0 Enema 19-7 gram/118 mL Enema 118 ml MS DAILY PRN (Reason: Constipation) RF: 0 Protonix [address] for susp in packet 40 mg PO DAILY Qty: 30 RF: 0 folic acid 1 mg tablet 1 mg PO DAILY Qty: 30 RF: 0 Referrals: Simon Garcia [Primary Care Provider] - Lasha Garcia FNP [Family Provider] - Discharge Date/Time: 07/21/19 16:48 Coding Level of Care Code ED Diamond Cleaner for Chg Fwd Exam Expanded Problem Focused Documented by User: Jason Guzman DO 07/22/19 17:24 HPI - Extremity Problem General: Chief complaint: Extremity Problem,Nontraumatic Stated complaint: left leg pain Time Seen by Provider: 07/21/19 13:34 PFS ED PFSH: Medical History (Updated 07/21/19 @ 15:37 by AMOS Smith) Alzheimer's dementia Anemia COPD (chronic obstructive pulmonary disease) CVA (cerebral vascular accident) Depression DVT (deep venous thrombosis) Hyperlipidemia Hypertension Peripheral vascular disease Tobacco abuse, in remission Surgical History History of dilatation and curettage Social History Smoking and tobacco status: smoker, details unknown Quit status (tobacco): has quit using tobacco Year quit tobacco: February 2019 Alcohol intake: never Housing: [facility] Course Vital Signs: Vital signs: Vital Signs Temperature 97.7 F 07/21/19 13:28 Pulse Rate 88 07/21/19 15:46 Respiratory Rate 18 07/21/19 15:46 Blood Pressure 109/64 07/21/19 15:46 Pulse Oximetry 98 07/21/19 15:46 MDM - Extremity (Nontraumatic) MDM Narrative: Medical decision making narrative: Viewed case with AMOS Jones agree with assessment and plan Lab Data: Labs: Lab Results 07/21/19 07/21/19 07/21/19 Range/Units 13:55 13:55 13:55 WBC 5.7 (4.0-10.0) 10^3/ uL RBC 4.05 L (4.1-5.3) 10^6/u L Hgb 11.6 (11.5-15.3) g/dL Hct 39.7 (37.0-47.0) % MCV 98.0 (81-99) fL MCH 28.6 (28.0-34.0) pg MCHC 29.2 L (30.0-36.0) g/dL RDW 13.3 (12.1-15.1) % Plt Count 244 (130-400) 10^3/c mm MPV 9.4 (7.4-10.4) fL Neut % (Auto) 68.4 % Lymph % (Auto) 23.7 % [place] % (Auto) 7.7 % Eos % (Auto) 0.0 % Baso % (Auto) 0.0 % Neut # (Auto) 3.9 (1.8-7.7) 10^3/u L Lymph # (Auto) 1.4 (0.8-4.8) 10^3/u L [place] # (Auto) 0.4 (0.2-0.9) 10^3/u L Eos # (Auto) 0.0 (0.0-0.8) 10^3/u L Baso # (Auto) 0.0 (0.0-0.1) 10^3/u L Nucleated RBC % (a uto) 0 % Nucleated RBCs # 0.0 /100WBC PT 15.60 H (10.5-13.3) SECO NDS INR 1.20 (0.8-1.2) APTT 29.5 (23.9-36.7) SECO NDS Sodium 148 H (136-145) mmol/L Potassium 4.3 (3.5-5.1) mmol/L Chloride 108 H (98-107) mmol/L Carbon Dioxide 27 (22-29) mmol/L Anion Gap 17.3 (5-19) BUN 66 H (8-23) mg/dL Creatinine 1.6 H (0.5-0.9) mg/dL Glucose 148 H (65-115) mg/dL Calculated Osmolal ity 308 H (285-295) mOsm/k g Calcium 10.5 (8.5-10.5) mg/dL Total Bilirubin 0.3 (0.15-1.2) mg/dL AST 24 (0-32) U/L ALT 19 (0-33) U/L Alkaline Phosphata se 111 H (35-105) IU/L Total Protein 8.7 (6.6-8.7) g/dL Albumin 4.2 (3.5-5.2) g/dL Globulin 4.5 (1.3-4.6) g/dL Discharge Plan Discharge Patient Disposition: Transfer to ED Clinical Impression: Occlusion of left popliteal-tibial artery Condition: Stable Prescriptions: No Action ferrous sulfate 325 mg (65 mg iron) Tablet 325 mg PO DAILY RF: 0 MediHoney (honey) 80 % Gel 1 applic TOPICAL DAILY RF: 0 Eliquis 5 mg Tablet 5 mg PO BID RF: 0 Pro-Stat AWC 17-100 gram-kcal/30 mL Liquid 30 ea PO BID RF: 0 melatonin 1 mg Tablet Extended Release 1 mg PO BEDTIME RF: 0 aspirin 81 mg Tablet,Delayed Release (Dr/Ec) 81 mg PO DAILY RF: 0 atorvastatin 10 mg Tablet 10 mg PO DAILY RF: 0 donepezil 5 mg Tablet 5 mg PO DAILY RF: 0 gabapentin 100 mg Capsule 100 mg PO DAILY RF: 0 hydrochlorothiazide 25 mg Tablet 25 mg PO DAILY RF: 0 lisinopril 20 mg Tablet 20 mg PO DAILY RF: 0 polyethylene glycol 3350 17 gram Powder In Packet 17 g PO PRN RF: 0 tramadol 100 mg Tablet Extended Release 24 Hr 100 mg PO Q4H PRN (Reason: Pain) RF: 0 venlafaxine 37.5 mg Tablet 37.5 mg PO BID RF: 0 clotrimazole 1 % Cream 1 applic TOPICAL BID RF: 0 memantine 10 mg Tablet 10 mg PO BID RF: 0 magnesium hydroxide [Milk of Magnesia] 400 mg/5 mL Suspension 30 mg PO PRN PRN (Reason: Constipation) RF: 0 bisacodyl 10 mg Suppository 10 mg MS PRN PRN (Reason: Constipation) RF: 0 Enema 19-7 gram/118 mL Enema 118 ml MS DAILY PRN (Reason: Constipation) RF: 0 Protonix [address] for susp in packet 40 mg PO DAILY Qty: 30 RF: 0 folic acid 1 mg tablet 1 mg PO DAILY Qty: 30 RF: 0 Referrals: Simon aGrcia [Primary Care Provider] - Lasha Garcia FNP [Family Provider] - Discharge Date/Time: 07/21/19 16:48 Coding Level of Care Code ED Diamond Cleaner for Chg Fwd Exam Expanded Problem Focused
--- NOTE | 2019-07-21 13:45 | USCV_ITS ---
Keya De La Cruz Age: 78 Gender: F : 1940 Exam Date: 07/21/2019 13:57 Ordering Phys: Ernestine Godoy Technologist: Sharyn Hope [place]am [place] [facility] [place] Indication: PRIOR DVT HISTORY: DVT. PROCEDURES: Venous duplex imaging was performed in only the left lower extremity. On the left side, the common femoral, superficial femoral, profunda femoral, popliteal, posterior tibial, greater saphenous veins, and the peroneal trunk were identified and interrogated in the standard fashion. These veins were found to be easily compressible with spontaneous blood flow. No evidence of insufficiency or thrombus noted. Serial compression, augmentation maneuvers, and spectral Doppler flow evaluation were performed. FINDINGS: Normal 2-D Doppler and augmentation and compressibility throughout the lower extremity venous structures. Additional imaging through the proximal calf veins also reveals no thrombus. Limited evaluation of the greater saphenous vein is patent with no thrombus.. The veins were found to be easily compressible with spontaneous blood flow. Non pulsatile flow pattern. CONCLUSIONS No evidence of DVT in the above-mentioned identifiable veins. Dr Abdirizak Catherine MD [facility] (Electronically Signed) Final Date: 21 July 2019 17:25 S
[2019-07-21 14:00] LABS: Hematocrit 39.7 % (37.0-47.0); Hemoglobin 11.6 g/dL (11.5-15.3); Lymphocytes # 1.4 10^3/uL (0.8-4.8); Lymphocytes % 23.7 %; Mean Corpuscular HGB Conc 29.2 g/dL (30.0-36.0); Mean Corpuscular Hemoglobin 28.6 pg (28.0-34.0); Mean Platelet Volume 9.4 fL (7.4-10.4); Monocytes # 0.4 10^3/uL (0.2-0.9); Monocytes % 7.7 %; Neutrophils # 3.9 10^3/uL (1.8-7.7); Neutrophils % 68.4 %; Nucleated Red Blood Cells % 0 %; Platelet Count 244 10^3/cmm (130-400); Red Blood Count 4.05 10^6/uL (4.1-5.3); Red Cell Distribution Width 13.3 % (12.1-15.1); White Blood Count 5.7 10^3/uL (4.0-10.0)
[2019-07-21 14:17] LABS: Alanine Aminotransferase 19 U/L (0-33); Albumin Level 4.2 g/dL (3.5-5.2); Alkaline Phosphatase 111 IU/L (35-105); Anion Gap 17.3 (5-19); Aspartate Amino Transferase 24 U/L (0-32); Blood Urea Nitrogen 66 mg/dL (8-23); Calcium 10.5 mg/dL (8.5-10.5); Carbon Dioxide 27 mmol/L (22-29); Chloride 108 mmol/L (98-107); Globulin 4.5 g/dL (1.3-4.6); Glucose 148 mg/dL (65-115); Osmolality Calculated 308 mOsm/kg (285-295); Potassium 4.3 mmol/L (3.5-5.1); Sodium 148 mmol/L (136-145); Total Bilirubin 0.3 mg/dL (0.15-1.2); Total Protein 8.7 g/dL (6.6-8.7)
[2019-07-21 15:33] LABS: Partial Thromboplastin Time 29.5 SECONDS (23.9-36.7)
[2019-07-21 15:46] VITALS: BP 109/64; PULSE 88; RESP 18; O2SAT 98
== END 2019-07-21 16:48 ==
PROVIDERS: Emergency Provider Physician Assistant; Family Provider Nurse Practitioner Family; PCP Family Medicine
DX: I70.202 Unspecified atherosclerosis of native arteries of extremities, left leg (principal); G30.9 Alzheimer's disease, unspecified; F02.80 Dementia in other diseases classified elsewhere, unspecified severity, without behavioral disturbance, psychotic disturbance, mood disturbance, and anxiety; I10 Essential (primary) hypertension; I99.8 Other disorder of circulatory system; E78.5 Hyperlipidemia, unspecified; I73.9 Peripheral vascular disease, unspecified; J44.9 Chronic obstructive pulmonary disease, unspecified; Z79.01 Long term (current) use of anticoagulants; Z86.73 Personal history of transient ischemic attack (TIA), and cerebral infarction without residual deficits; Z79.82 Long term (current) use of aspirin
CPT/HCPCS: 12345; 36415; 80053; 85025; 85610; 85730; 93926; 93971; 99281; 99283

== ENCOUNTER 2019-09-24 18:48 | Emergency (ER) | payer MEDICARE, MEDICAID, SELFPAY ==
--- NOTE | 2019-09-24 19:00 | CTR_ITS ---
PROCEDURE INFORMATION: Exam: CT Head Without Contrast Exam date and time: 09/24/2019 7:06 PM Age: 78 years old Clinical indication: Weakness, extremity; Left; Patient HX: L sided weakness; Additional info: CVA TECHNIQUE: Imaging protocol: Computed tomography of the head without contrast. Radiation optimization: All CT scans at this facility use at least one of these dose optimization techniques: automated exposure control; mA and/or kV adjustment per patient size (includes targeted exams where dose is matched to clinical indication); or iterative reconstruction. Other technique: STROKE PROTOCOL was implemented. COMPARISON: No relevant prior studies available. RADIATION DOSE METRICS: Total DLP: 740.26 mGy-cm FINDINGS: Brain: There is advanced cortical atrophy. Low-density changes are present in the white matter regions in keeping nonspecific small vessel chronic ischemic change. There is old infarct in the left subinsular region. There is no intracranial mass, hemorrhage or edema. Ventricles: Normal. No ventriculomegaly. Bones/joints: Unremarkable. No acute fracture. Sinuses: Visualized sinuses are unremarkable. No fluid levels. Mastoid air cells: Visualized mastoid air cells are well aerated. Soft tissues: Unremarkable. CT/CT head wo con* [id number] IMPRESSION: No acute intracranial finding ASSESSMENT: ASPECTS ([place] Stroke Program Early CT Score) is 10. Radiation Dose CTDIVOL = (mGy): DLP = 740.26 (mGy-cm)
--- NOTE | 2019-09-24 19:00 | ECG_ITS ---
Measurements Intervals [place] Rate: 85 P: 67 [place]: 198 QRS: 36 QRSD: 73 T: 71 QT: 370 QTc: 440 SINUS RHYTHM Compared to ECG 08/06/2018 03:52:07 Sinus arrhythmia no longer present First degree AV block no longer present Electronically Signed On 09-24-2019 20:57:50 CDT by Abdirizak Catherine M.D. [email or web address]
--- NOTE | 2019-09-24 19:23 | ED_ITS ---
HPI - General Adult General: Chief complaint: Neuro Symptoms/Deficit Stated complaint: STROKE LIKE SYMPTOMS Time Seen by Provider: 09/24/19 18:54 History of Present Illness: HPI narrative: Keya is a nice 78-year-old female who comes in from the prison with report of a unresponsive episode with left-sided weakness. Patient was believed to be normal at 430 by prison staff. She was found unresponsive in their dayroom and remained that way for approximately 3 minutes until she was slowly aroused by sternal rub. snf staff noticed that she was incontinent of bowel and she had a left- sided facial droop and left-sided arm paralysis. Blood pressure was 90/60 with a heart rate of 43. EMS was called and as time went on the patient became more toward her normal. Vital signs were stable. Blood sugar was normal. Her left- sided weakness of her arm resolved prior to arrival here. Patient has a history of CVA and has baseline aphasia and cannot communicate. This is her norm. Review of Systems General: Reports: ROS unobtainable due to mental status PFSH ED PFSH: Medical History Alzheimer's dementia Anemia COPD (chronic obstructive pulmonary disease) CVA (cerebral vascular accident) Depression DVT (deep venous thrombosis) Hyperlipidemia Hypertension Peripheral vascular disease Tobacco abuse, in remission Surgical History History of dilatation and curettage Family History Denies family history of CAD (coronary artery disease) Stroke Social History Smoking and tobacco status: former smoker Quit status (tobacco): has quit using tobacco Year quit tobacco: February 2019 Alcohol intake: never Housing: Senior Living Physical Exam Const: COMMON NORMALS: no acute distress, no limitations, healthy appearing, alert and well nourished GENERAL APPEARANCE: cooperative, well kempt and well developed HENMT: COMMON NORMALS: normocephalic, atraumatic, external ears normal, EAC's normal and Normal external nose present HEAD & SCALP: normal to inspection, normocephalic and atraumatic FACE & SINUS: normal facial exam and face symmetric NOSE: Normal external nose present and Normal nares present EXTERNAL EAR: Yes external ears normal EXTERNAL AUDITORY CANAL: EAC's normal MOUTH: Normal oral and palatal mucosa present, lip normal and tongue normal Eye: COMMON NORMALS: Equal, round and reactive pupils present and conjunctivae normal GENERAL EYE: appearance normal, both eyes and all related structures ALIGNMENT: Yes alignment normal PERIORBITAL: periorbital findings normal EYELID: eyelids normal CONJUNCTIVA: Yes conjunctivae normal SCLERA: sclerae normal PUPIL: Yes Equal, round and reactive pupils present Neck/C-Spine: COMMON NORMALS: full ROM, no lymphadenopathy, supple, no meningeal signs and no JVD GENERAL: Yes normal visual inspection and Yes trachea midline Chest: COMMONS NORMALS: normal inspection of the chest and normal palpation of entire chest wall Resp: COMMON NORMALS: normal respiratory effort, No retractions and No use of accessory muscles EFFORT & INSPECTION: Yes able to speak in complete sentences and Yes symmetric chest movement AUSCULTATION: no crackles, no rales, no rhonchi and no wheezes Cardio: COMMON NORMALS: no JVD, regular rate, regular rhythm, S1 normal heart sound present and S2 normal heart sound present RATE: regular rate RHYTHM: regular rhythm HEART SOUNDS: S1 normal heart sound present, S2 normal heart sound present, no click, no gallops, no murmurs, no rubs and abnormal split S2 GI: COMMON NORMALS: Soft to palpation and No hepatosplenomegaly present PALPATION: Yes Soft to palpation, No Tenderness to palpation present (GI), No Guarding due to palpation present (GI), No Rigid due to palpation, Yes No hepatosplenomegaly present, No Hernia present, No Palpable mass present and No Pulsatile mass present : COMMON NORMALS: Yes no CVA tenderness BLADDER/KIDNEY EXAM: Yes no CVA tenderness EXTERNAL FEMALE EXAM: No Hernia present Back/Pelvis: COMMON NORMALS: no CVA tenderness, thoracic and lumbar spine normal to inspection, no thoracic nor lumbar tenderness and thoraco-lumbar ROM normal Extremity: COMMON NORMALS: normal to inspection, full ROM, capillary refill normal, no joint enlargement, no clubbing, cyanosis or edema and no calf tenderness Neuro: FREDERICK COMA SCALE: document GCS findings [place] coma scale eye opening: Spontaneous [place] coma scale verbal response: Confused [place] coma scale motor response: Obey commands [place] coma scale total score: 14 SENSORIUM/ORIENTATION: Yes alert MENINGEAL SIGNS: Yes no meningeal signs Psych: APPEARANCE: Yes well kempt Skin: COMMON NORMALS: no rashes or lesions noted, turgor normal, no jaundice, no petechiae and no mottling GENERAL SKIN EXAM: no rashes or lesions noted and turgor normal Course Vital Signs: Vital signs: Vital Signs Temperature 97.2 F L 09/24/19 19:24 Pulse Rate 88 09/24/19 23:34 Respiratory Rate 18 09/24/19 23:34 Blood Pressure 138/96 09/24/19 23:34 Pulse Oximetry 99 09/24/19 23:34 MDM - General Adult MDM Narrative: Medical decision making narrative: Keya is a 78-year-old female brought in for being found unresponsive but as she began to arouse demonstrating left-sided deficits consistent with a stroke. By the time the patient arrived here her symptoms were back to baseline although at baseline she has a significant NIH stroke scale from a previous CVA. Family showed up very quickly and declined for the patient be considered for TPA. I had called stroke alert but we stopped this once they decided that she was back to her baseline. They actually declined having a CTA of the head and neck done as well. I cannot determine from padmini's work-up what caused her to be unresponsive it could be a TIA that has resolved. Typically TIAs and strokes will not cause unresponsive episodes but her symptoms upon awakening is what triggered the work-up for stroke. I have informed the family there could be something else going on such as a heart rhythm problem or cardiac issue. Nonetheless the family declines any further aggressive evaluation and care and would like the patient taken back to the prison where she is most comfortable. They are aware that I have recommended further evaluation and care but they would like to take her back when she is more comfortable. They understand that she is welcome to return at any time. Lab Data: Attestation: I reviewed the patient's lab results. Labs: Lab Results 09/24/19 09/24/19 09/24/19 Range/Units 19:31 19:31 19:31 WBC 8.3 (4.0-10.0) 10^3/ uL RBC 3.56 L (4.1-5.3) 10^6/u L Hgb 10.3 L (11.5-15.3) g/dL Hct 33.3 L (37.0-47.0) % MCV 93.5 (81-99) fL MCH 28.9 (28.0-34.0) pg MCHC 30.9 (30.0-36.0) g/dL RDW 13.2 (12.1-15.1) % Plt Count 232 (130-400) 10^3/c mm MPV 9.5 (7.4-10.4) fL Neut % (Auto) 86.0 % Lymph % (Auto) 8.5 % [place] % (Auto) 5.2 % Eos % (Auto) 0.0 % Baso % (Auto) 0.1 % Neut # (Auto) 7.1 (1.8-7.7) 10^3/u L Lymph # (Auto) 0.7 L (0.8-4.8) 10^3/u L [place] # (Auto) 0.4 (0.2-0.9) 10^3/u L Eos # (Auto) 0.0 (0.0-0.8) 10^3/u L Baso # (Auto) 0.0 (0.0-0.1) 10^3/u L Nucleated RBC % (a uto) 0 % Nucleated RBCs # 0.0 /100WBC PT (10.5-13.3) SECO NDS INR (0.8-1.2) APTT (23.9-36.7) SECO NDS Sodium 138 (136-145) mmol/L Potassium 4.9 (3.5-5.1) mmol/L Chloride 101 (98-107) mmol/L Carbon Dioxide 25 (22-29) mmol/L Anion Gap 16.9 (5-19) BUN 41 H (8-23) mg/dL Creatinine 1.3 H (0.5-0.9) mg/dL Glucose 134 H (65-115) mg/dL Calculated Osmolal ity 286 (285-295) mOsm/k g Calcium 9.8 (8.5-10.5) mg/dL Magnesium 2.4 H (1.7-2.3) mg/dL Total Bilirubin 0.2 (0.15-1.2) mg/dL AST 14 (0-32) U/L ALT 9 (0-33) U/L Alkaline Phosphata se 91 (35-105) IU/L Troponin T Baselin e 47 H (0-10) ng/L Troponin T 120 Min vivienne (0-10) ng/L Delta Troponin T (0-10) ABS# Total Protein 7.2 (6.6-8.7) g/dL Albumin 4.2 (3.5-5.2) g/dL Globulin 3.0 (1.3-4.6) g/dL Urine Color (Yellow) Urine Appearance (CLEAR) Urine pH (5-7) Ur Specific Gravit y (1.005-1.030) Urine Protein (Negative) Urine Glucose (UA) (Normal) Urine Ketones (Negative) Urine Blood (Negative) Urine Nitrate (Negative) Urine Bilirubin (NEGATIVE) Urine Urobilinogen (Negative) mg/dL Ur Leukocyte Merry ase (Negative) Urine RBC (0-2) /hpf Urine WBC (0-5) /hpf Ur Squamous Epith Cells (0-5) Amorphous Sediment Urine Bacteria (NONE) Hyaline Casts 09/24/19 09/24/19 09/24/19 Range/Units 19:31 20:24 21:30 WBC (4.0-10.0) 10^3/ uL RBC (4.1-5.3) 10^6/u L Hgb (11.5-15.3) g/dL Hct (37.0-47.0) % MCV (81-99) fL MCH (28.0-34.0) pg MCHC (30.0-36.0) g/dL RDW (12.1-15.1) % Plt Count (130-400) 10^3/c mm MPV (7.4-10.4) fL Neut % (Auto) % Lymph % (Auto) % [place] % (Auto) % Eos % (Auto) % Baso % (Auto) % Neut # (Auto) (1.8-7.7) 10^3/u L Lymph # (Auto) (0.8-4.8) 10^3/u L [place] # (Auto) (0.2-0.9) 10^3/u L Eos # (Auto) (0.0-0.8) 10^3/u L Baso # (Auto) (0.0-0.1) 10^3/u L Nucleated RBC % (a uto) % Nucleated RBCs # /100WBC PT 13.10 (10.5-13.3) SECO NDS INR 0.96 (0.8-1.2) APTT 26.6 (23.9-36.7) SECO NDS Sodium (136-145) mmol/L Potassium (3.5-5.1) mmol/L Chloride (98-107) mmol/L Carbon Dioxide (22-29) mmol/L Anion Gap (5-19) BUN (8-23) mg/dL Creatinine (0.5-0.9) mg/dL Glucose (65-115) mg/dL Calculated Osmolal ity (285-295) mOsm/k g Calcium (8.5-10.5) mg/dL Magnesium (1.7-2.3) mg/dL Total Bilirubin (0.15-1.2) mg/dL AST (0-32) U/L ALT (0-33) U/L Alkaline Phosphata se (35-105) IU/L Troponin T Baselin e (0-10) ng/L Troponin T 120 Min vivienne 45.34 H (0-10) ng/L Delta Troponin T -1.66 L (0-10) ABS# Total Protein (6.6-8.7) g/dL Albumin (3.5-5.2) g/dL Globulin (1.3-4.6) g/dL Urine Color Yellow (Yellow) Urine Appearance Sl hazy (CLEAR) Urine pH 5 (5-7) Ur Specific Gravit y 1.015 (1.005-1.030) Urine Protein Neg (Negative) Urine Glucose (UA) Norm (Normal) Urine Ketones Negative (Negative) Urine Blood Neg (Negative) Urine Nitrate Negative (Negative) Urine Bilirubin Neg (NEGATIVE) Urine Urobilinogen Norm (Negative) mg/dL Ur Leukocyte Merry ase Negative (Negative) Urine RBC None (0-2) /hpf Urine WBC 0-4 H (0-5) /hpf Ur Squamous Epith Cells 0-4 H (0-5) Amorphous Sediment 1+ Urine Bacteria Trace (NONE) Hyaline Casts 0-4 H EKG Data^: EKG 1: Attestation: I personally reviewed and interpreted this EKG as follows: EKG interpretation date: 09/24/19 EKG interpretation time: 20:05 Interpretation: Normal sinus rhythm 85 beats a minute, no blocks, normal intervals, normal axis, nonspecific ST and T wave changes. Computer generated interpretation: Head CT 09/24/19 19:00 IMPRESSION: No acute intracranial finding ASSESSMENT: ASPECTS ([place] Stroke Program Early CT Score) is 10. Radiation Dose CTDIVOL = (mGy): DLP = 740.26 (mGy-cm) Discharge Plan Discharge Patient Disposition: Home, Self-Care Clinical Impression: Transient cerebral ischemia Qualifiers: Transient cerebral ischemia type: unspecified Qualified Code(s): G45.9 - Transient cerebral ischemic attack, unspecified Condition: Stable Prescriptions: No Action melatonin 1 mg Tablet Extended Release 3 mg PO BEDTIME RF: 0 clopidogrel 75 mg tablet 75 mg PO DAILY RF: 0 MediHoney (honey) 80 % Gel 1 applic TOPICAL DAILY RF: 0 atorvastatin 10 mg Tablet 10 mg PO DAILY RF: 0 donepezil 5 mg Tablet 5 mg PO DAILY RF: 0 gabapentin 100 mg Capsule 100 mg PO DAILY RF: 0 hydrochlorothiazide 25 mg Tablet 12.5 mg PO DAILY RF: 0 lisinopril 20 mg Tablet 20 mg PO DAILY RF: 0 polyethylene glycol 3350 17 gram Powder In Packet 17 g PO PRN RF: 0 venlafaxine 37.5 mg Tablet 37.5 mg PO BID RF: 0 memantine 10 mg Tablet 10 mg PO BID RF: 0 Protonix [address] for susp in packet 40 mg PO DAILY Qty: 30 RF: 0 folic acid 1 mg tablet 1 mg PO DAILY Qty: 30 RF: 0 Discharge Orders: Discharge Order (Routine); Ordered 09/24/19 Ordered By: Renate Biswas Referrals: Simon Garcia [Primary Care Provider] - 1-3 days Discharge Diet: Advance as tolerated Discharge Activity: Increase activity as tolerated Patient Instructions: Transient Ischemic Attack (ED), Self Care Measures After a Stroke (ED) Activity Restrictions/Additional Instructions: Please return to the ER immediately for any of the signs or symptoms listed on your discharge instruction sheets, worsening/changing of your symptoms, you are not getting better as quickly as expected, or for ANY other cause or concerns. You have declined any further evaluation and care for your mother strokelike symptoms so if you change your mind or your mother's symptoms change in any way please return to the ER immediately for recheck. Coding Level of Care Code ED Boiler Shop Mechanic for Sai Fwolinda Exam Comprehensive NIH stroke score NIHSS Level Of Consciousness - 1a: 0 Level Of Consciousness Questions - 1b: Neither Correct Level Of Consciousness Commands - 1c: One Correct Best Gaze - 2: Normal Visual Fernández - 3: No Visual Loss Facial Palsy - 4: Normal Motor Arm Right - 5: No Drift Motor Arm Left - 5: No Drift Motor Leg Right - 6: Drift Motor Leg Left - 6: Drift Limb Ataxia - 7: Present In Two Limbs Sensory - 8: Normal Best Language - 9: Severe Aphasia Dysarthia - 10: Normal Extinction And Inattention - 11: 0 Score Total Score: 9
[2019-09-24 19:24] VITALS: BP 151/83; PULSE 96; RESP 16; TEMP 36.2; O2SAT 97; BMI 26.6
--- NOTE | 2019-09-24 19:51 | PC.NURSE ---
Refused TPA Patient aphasic from prior stroke last February. LKW is questionable. Daughter at bedside and reports pt is back to her baseline. NIHSS 14 (not following commands). Explained risk and benefits of TPA to daughter and daughter refused medication.
[2019-09-24 19:54] LABS: Basophils % 0.1 %; Hematocrit 33.3 % (37.0-47.0); Hemoglobin 10.3 g/dL (11.5-15.3); Lymphocytes # 0.7 10^3/uL (0.8-4.8); Lymphocytes % 8.5 %; Mean Corpuscular HGB Conc 30.9 g/dL (30.0-36.0); Mean Corpuscular Hemoglobin 28.9 pg (28.0-34.0); Mean Corpuscular Volume 93.5 fL (81-99); Mean Platelet Volume 9.5 fL (7.4-10.4); Monocytes # 0.4 10^3/uL (0.2-0.9); Monocytes % 5.2 %; Neutrophils # 7.1 10^3/uL (1.8-7.7); Nucleated Red Blood Cells % 0 %; Platelet Count 232 10^3/cmm (130-400); Red Blood Count 3.56 10^6/uL (4.1-5.3); Red Cell Distribution Width 13.2 % (12.1-15.1); White Blood Count 8.3 10^3/uL (4.0-10.0)
--- NOTE | 2019-09-24 19:55 | PC.NURSE ---
EKG done at 1952 and shown to ER doctor
[2019-09-24 19:57] VITALS: BP 137/75; PULSE 79; RESP 16; O2SAT 96
[2019-09-24 20:16] LABS: Alanine Aminotransferase 9 U/L (0-33); Albumin Level 4.2 g/dL (3.5-5.2); Alkaline Phosphatase 91 IU/L (35-105); Anion Gap 16.9 (5-19); Aspartate Amino Transferase 14 U/L (0-32); Blood Urea Nitrogen 41 mg/dL (8-23); Calcium 9.8 mg/dL (8.5-10.5); Carbon Dioxide 25 mmol/L (22-29); Chloride 101 mmol/L (98-107); Glucose 134 mg/dL (65-115); Magnesium 2.4 mg/dL (1.7-2.3); Osmolality Calculated 286 mOsm/kg (285-295); Potassium 4.9 mmol/L (3.5-5.1); Sodium 138 mmol/L (136-145); Total Bilirubin 0.2 mg/dL (0.15-1.2); Total Protein 7.2 g/dL (6.6-8.7)
[2019-09-24] MEDS: sodium chloride 0.9% 1,000 ML 100 ML IV (20:20)
[2019-09-24 20:32] LABS: INR 0.96 (0.8-1.2)
[2019-09-24 20:33] LABS: Partial Thromboplastin Time 26.6 SECONDS (23.9-36.7); Troponin(5th) Baseline 47 ng/L (0-10)
[2019-09-24 21:22] LABS: Bilirubin Urine Neg (NEGATIVE); Blood Urine Neg (Negative); Glucose Urine UA Norm (Normal); Ketones Urine Negative (Negative); Leukocyte Esterase Urine Negative (Negative); Nitrate Urine Negative (Negative); Protein Urine Neg (Negative); Specific Gravity, Urine 1.015 (1.005-1.030); Urine Appearance SL Hazy (CLEAR); Urine Color Yellow (Yellow); Urobilinogen Urine Norm (Negative); pH Urine 5 (5-7)
[2019-09-24 21:31] LABS: Add Urine Culture? No; Amorphous Sediment Urine 1+; Bacteria Urine TRACE; Hyaline Casts Urine 0-4; Squamous Epithelial Cell Urine 0-4 (0-5); WBC Urine 0-4 /hpf (0-5)
[2019-09-24 21:42] VITALS: BP 155/86; PULSE 94; RESP 18; O2SAT 98
[2019-09-24 22:05] LABS: Troponin 5 2HR 45.34 ng/L (0-10)
[2019-09-24 22:12] LABS: Troponin 5 2HR Delta -1.66 ABS# (0-10)
[2019-09-24 23:34] VITALS: BP 138/96; PULSE 88; RESP 18; O2SAT 99
[2019-09-25 03:15] VITALS: RESP 18; O2SAT 96
== END 2019-09-25 03:18 | disposition home or self-care (01) ==
PROVIDERS: Emergency Provider Emergency Medicine; PCP Family Medicine
DX: G45.9 Transient cerebral ischemic attack, unspecified (principal); Z79.02 Long term (current) use of antithrombotics/antiplatelets; G30.9 Alzheimer's disease, unspecified; F02.80 Dementia in other diseases classified elsewhere, unspecified severity, without behavioral disturbance, psychotic disturbance, mood disturbance, and anxiety; J44.9 Chronic obstructive pulmonary disease, unspecified; Z86.73 Personal history of transient ischemic attack (TIA), and cerebral infarction without residual deficits; E78.5 Hyperlipidemia, unspecified; I10 Essential (primary) hypertension; Z87.891 Personal history of nicotine dependence
CPT/HCPCS: 12345; 70450; 80053; 81001; 83735; 84484; 85025; 85610; 85730; 93005; 96360; 96361; 99283; 99284; J7030

== ENCOUNTER 2019-10-15 10:42 | Inpatient (IN) | payer MEDICARE, MEDICAID, SELFPAY ==
[2019-10-15] VITALS (7 sets, daily range): BP systolic 126–200; BP diastolic 73–112; PULSE 90–116; RESP 16–28; TEMP 36.6; O2SAT 91–98; BMI 26.9
--- NOTE | 2019-10-15 10:45 | USCV_ITS ---
Keya De La Cruz Age: 78 Gender: F : 1940 Exam Date: 10/15/2019 11:07 Ordering Phys: Ernestine Godoy Technologist: Sarah Sykes Exam Location: [facility] [place] Indication: NO PEDAL PULSES Risk Factors: KNOW PAD Previous Vascular Surgery: STENTS ON LEFT RIGHT LEFT BP: / BP: 199.0/ 87.00 0 Waveform Velocity (cm/s) Velocity (cm/s) Waveform Iliac Prox 132.0 Triphasic Iliac Mid 118.6 Monophasic Iliac Distal Monophasic 102.1 CASH APPLICATION CLERK 109.0 Monophasic SFA Prox 116.9 Monophasic SFA Mid 97.1 Monophasic SFA Dist 104.3 Monophasic POP 0.0 N/A PROPULSION MACHINERY SERVICE ENGINEER 0.0 N/A DPA 0.0 FINDINGS UNABLE TO DO FARHAN. LT DPA HAS FLICKER OF FLOW. LT POP AND LT PERINEAL TRUNK HAS NO FLOW. Moderate diffuse heterogeneous plaques in the left iliac and femoral artery. Normal Doppler flow signals in the popliteal, posterior tibial and peroneal artery. Extremely low velocity continuous Doppler signal in the dorsalis pedis artery. 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 Possible minimal collateral filling in the dorsalis pedis artery. Dr Abdirizak Catherine MD [facility] (Electronically Signed) Final Date: 15 October 2019 14:12 S
--- NOTE | 2019-10-15 11:11 | CTR_ITS ---
PROCEDURE INFORMATION: Exam: CTA Angiogram of the Abdominal Aorta and Bilateral Lower Extremities (Run-off) With IV Contrast Exam date and time: 10/15/2019 12:09 PM Age: 78 years old Clinical indication: Pain; Other: Left lower leg; Prior surgery; Surgery date: 6+ months; Additional info: Lle pain TECHNIQUE: Imaging protocol: CT angiogram of the abdominal aorta, pelvis and bilateral lower extremities with IV iodinated contrast. 3D rendering: MIP and/or 3D reconstructed images were created by the technologist. Radiation optimization: All CT scans at this facility use at least one of these dose optimization techniques: automated exposure control; mA and/or kV adjustment per patient size (includes targeted exams where dose is matched to clinical indication); or iterative reconstruction. Contrast material: VISI 320; Contrast volume: 95 ml; Contrast route: INTRAVENOUS (IV); COMPARISON: CR Chest 1 view [id number] 08/05/2018 8:02 PM RADIATION DOSE METRICS: Total DLP (mGy-cm): 1756.89 FINDINGS: Aorta: Infrarenal abdominal aortic fusiform aneurysm is present measuring 4.2 cm 2 oblique AP dimension. Moderate left anterolateral mural thrombus. There is no evidence of rupture or leakage. Saccular aneurysm distal left anterolateral infrarenal abdominal aorta measuring 2.0 cm. No evidence of rupture. Right artery atherosclerotic calcifications without evidence of aneurysm. 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 Renal arteries: Bilateral single renal arteries. Bilateral severe renal artery origin stenosis. Right iliac arteries: No occlusion or significant stenosis. Right femoral/popliteal arteries: Less than 50% right common femoral artery stenosis. 50-70% stenosis proximal right superficial femoral artery stenosis. 50-70% stenosis distal right superficial femoral artery (adductor hiatus). Severe proximal right popliteal artery stenosis. Right infrapopliteal arteries: Severe right proximal tibioperoneal trunk stenosis. Occluded right posterior tibial artery. 2 vessel runoff to the right ankle. The right anterior tibial-dorsalis pedis artery supplies the forefoot. Limited opacification of the tibioperoneal trunk. Limited opacification of the anterior tibial artery origin. Left iliac arteries: No occlusion or significant stenosis. Left femoral/popliteal arteries: 50% stenosis left common femoral artery. Greater than 70% stenosis left superficial femoral artery origin. Patent multiple tandem left superficial femoral artery stents. 50-70% proximal left popliteal artery stenosis. Occluded mid left popliteal artery. Occluded left popliteal artery stent. Reconstitution of a small caliber distal left popliteal artery. Left infrapopliteal arteries: Occluded left posterior tibial artery. 2 vessel runoff of the left ankle. The left dorsalis pedis artery is not opacified. Heart: Mild cardiac left ventricular enlargement. Cardiac left ventricular inferoapical myocardial thinning suggesting chronic infarction. Liver: No mass. Gallbladder and bile ducts: Unremarkable. No calcified stones. No ductal dilation. Pancreas: Severe pancreatic atrophy. Spleen: Normal. No splenomegaly. Adrenals: Normal. No mass. Kidneys and ureters: Normal. No mass. Stomach and bowel: Unremarkable. No obstruction. No mucosal thickening. Appendix: The vermiform appendix is normal. Bladder: Unremarkable. No mass. Reproductive: Small calcified uterine leiomyoma. Intraperitoneal space: Right iliac fossa surgical clip. Lymph nodes: No lymphadenopathy. Bones/joints: Diffuse osteopenia. 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 Bilateral navicular-cuneiform, right tibiotalar primary osteoarthritis. Bilateral lower lumbar facet primary osteoarthritis. Lumbar spine vertebral body marginal osteophytes are noted at multiple levels. Soft tissues: Focal ectasia of intramuscular vessels of the left peroneus muscle group just above the mid point of the lower leg (series 208, images 23-26; series 3, images 390-409). CT/CT angio abd aorta runof [id number] IMPRESSION: 1. 50-70% stenosis proximal right superficial femoral artery stenosis. 2. 50-70% stenosis distal right superficial femoral artery (adductor hiatus). 3. Severe proximal right popliteal artery stenosis. 4. Severe right proximal tibioperoneal trunk stenosis. 5. Occluded right posterior tibial artery. 6. 50% stenosis left common femoral artery. 7. Greater than 70% stenosis left superficial femoral artery origin. 8. Patent multiple tandem left superficial femoral artery stents. 9. 50-70% proximal left popliteal artery stenosis. 10. Occluded mid left popliteal artery. 11. Occluded left popliteal artery stent. 12. Reconstitution of a small caliber distal left popliteal artery. 13. Occluded left posterior tibial artery. 14. The left dorsalis pedis artery is not opacified. This may be technical. Clinical correlation/Doppler evaluation recommended. 15. Nonspecific intramuscular lesion left peroneus longus muscle. Clinical correlation is recommended. MRI may add additional useful information if clinically indicated. 16. Bilateral severe renal artery origin stenosis. Clinical correlation (systemic hypertension?) is recommended. 17. 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 18. Infrarenal abdominal aortic aneurysms. Comparison with prior studies recommended, if available. Followup recommended. 19. Small calcified uterine leiomyoma. 20. Mild cardiac left ventricular enlargement. 21. Cardiac left ventricular inferoapical myocardial thinning suggesting chronic infarction. Radiation Dose CTDIVOL = (mGy): DLP = 1756.89 (mGy-cm)
--- NOTE | 2019-10-15 11:13 | USCV_ITS ---
Keya De La Cruz Age: 78 Gender: F : 1940 Exam Date: 10/15/2019 11:27 Ordering Phys: Renate Biswas DO Technologist: Sarah Sykes Exam Location: [facility] [place] Indication: HISTORY OF LT DVT HISTORY: Pt's family states dvt history PROCEDURES: Venous duplex imaging was performed in only the left lower extremity. The following venous structures were evaluated: common femoral vein, profunda vein, proximal portion of the greater saphenous vein, superficial femoral vein, and the popliteal vein. In addition, the posterior tibial and peroneal trunk were evaluated. Serial compression, augmentation maneuvers, and spectral Doppler flow evaluation were performed. FINDINGS: No DVT seen in any vessel examined The veins were found to be easily compressible with spontaneous blood flow. Non pulsatile flow pattern. CONCLUSIONS No evidence of DVT in the above-mentioned identifiable veins. Dr Abdirizak Catherine MD [facility] (Electronically Signed) Final Date: 15 October 2019 14:14 S
--- NOTE | 2019-10-15 11:13 | ECG_ITS ---
[facility] Test Date: 2019-10-15 Pat Name: Keya De La Cruz Department: Room: Gender: Female Hand Picker: : 1940 Requested By: Renate Bach Order Number: [id number] Quang MD: Sienna Parekh M.D. Measurements Intervals [place] Rate: 86 P: 70 MS: 201 QRS: 19 QRSD: 78 T: 57 QT: 351 QTc: 421 Interpretive Statements SINUS RHYTHM Compared to ECG 09/24/2019 20:00:05 No significant changes Electronically Signed On 10-15-2019 20:47:25 CDT by Sienna Parekh M.D. [email or web address]
[2019-10-15] MEDS: sodium chloride 0.9% 1,000 ML 100 ML IV ×2 (11:27→17:52)
[2019-10-15 11:58] LABS: Basophils % 0.2 %; Hematocrit 38.7 % (37.0-47.0); Hemoglobin 11.3 g/dL (11.5-15.3); Lymphocytes # 1.2 10^3/uL (0.8-4.8); Lymphocytes % 20.2 %; Mean Corpuscular HGB Conc 29.2 g/dL (30.0-36.0); Mean Corpuscular Hemoglobin 27.9 pg (28.0-34.0); Mean Corpuscular Volume 95.6 fL (81-99); Mean Platelet Volume 9.5 fL (7.4-10.4); Monocytes # 0.3 10^3/uL (0.2-0.9); Monocytes % 5.6 %; Neutrophils # 4.2 10^3/uL (1.8-7.7); Neutrophils % 73.8 %; Nucleated Red Blood Cells % 0 %; Platelet Count 214 10^3/cmm (130-400); Red Blood Count 4.05 10^6/uL (4.1-5.3); Red Cell Distribution Width 13.2 % (12.1-15.1); White Blood Count 5.7 10^3/uL (4.0-10.0)
--- NOTE | 2019-10-15 12:09 | W.ED.EXTPRO ---
HPI - Extremity Problem General: Chief complaint: Extremity Problem,Nontraumatic Stated complaint: CONFUSED/ NO PEDAL PULSES IN L FOOT Time Seen by Provider: 10/15/19 11:11 Source: patient and family Mode of arrival: ambulatory Limitations: no limitations History of Present Illness: HPI Narrative: Keya is a very nice 78-year-old female who comes in complaining of pain to her left foot. The patient has a history of peripheral vascular disease and apparently it was noticed by nursing this morning that her toes were more dark in color than normal. With movement the patient has increased pain. Patient did not complain of any pain at rest. The fpc felt that she was slightly confused. Family is with her here and feels that she is in pain more so than being confused. Of note the patient had peripheral vascular intervention done both in May here by Dr. Abarca and then states sometime in July she had stents placed at [facility]. Patient is a poor historian as she seems to want to go back to sleep and most of the history is taken from the patient's daughter and old charts. Review of Systems General: Reports: Other (ROS limited secondary to patient's altered mental status.) PFSH ED PFSH: Medical History Alzheimer's dementia Anemia COPD (chronic obstructive pulmonary disease) CVA (cerebral vascular accident) Depression DVT (deep venous thrombosis) Hyperlipidemia Hypertension Peripheral vascular disease Tobacco abuse, in remission Surgical History History of dilatation and curettage Family History Denies family history of CAD (coronary artery disease) Stroke Social History Smoking and tobacco status: former smoker Quit status (tobacco): has quit using tobacco Year quit tobacco: February 2019 Alcohol intake: never Housing: [facility] Physical Exam Const: COMMON NORMALS: healthy appearing and well nourished EXAM LIMITATIONS: altered mental status GENERAL APPEARANCE: cooperative, well kempt, well developed and lethargic ORIENTATION/CONSCIOUSNESS: Yes lethargic HENMT: COMMON NORMALS: normocephalic, atraumatic, external ears normal, EAC's normal and Normal external nose present HEAD & SCALP: normal to inspection, normocephalic and atraumatic FACE & SINUS: normal facial exam and face symmetric NOSE: Normal external nose present and Normal nares present EXTERNAL EAR: Yes external ears normal EXTERNAL AUDITORY CANAL: EAC's normal MOUTH: Normal oral and palatal mucosa present, lip normal and tongue normal Eye: COMMON NORMALS: Equal, round and reactive pupils present and conjunctivae normal GENERAL EYE: appearance normal, both eyes and all related structures ALIGNMENT: Yes alignment normal PERIORBITAL: periorbital findings normal EYELID: eyelids normal CONJUNCTIVA: Yes conjunctivae normal SCLERA: sclerae normal PUPIL: Yes Equal, round and reactive pupils present Neck/C-Spine: COMMON NORMALS: full ROM, no lymphadenopathy, supple, no meningeal signs and no JVD GENERAL: Yes normal visual inspection and Yes trachea midline Chest: COMMONS NORMALS: normal inspection of the chest and normal palpation of entire chest wall Resp: COMMON NORMALS: normal respiratory effort, No retractions and No use of accessory muscles EFFORT & INSPECTION: Yes able to speak in complete sentences and Yes symmetric chest movement AUSCULTATION: no crackles, no rales, no rhonchi and no wheezes Cardio: COMMON NORMALS: no JVD, regular rate, regular rhythm, S1 normal heart sound present and S2 normal heart sound present RATE: regular rate RHYTHM: regular rhythm HEART SOUNDS: S1 normal heart sound present, S2 normal heart sound present, no click, no gallops, no murmurs, no rubs and abnormal split S2 GI: COMMON NORMALS: Soft to palpation and No hepatosplenomegaly present PALPATION: Yes Soft to palpation, No Tenderness to palpation present (GI), No Guarding due to palpation present (GI), No Rigid due to palpation, Yes No hepatosplenomegaly present, No Hernia present, No Palpable mass present and No Pulsatile mass present : COMMON NORMALS: Yes no CVA tenderness BLADDER/KIDNEY EXAM: Yes no CVA tenderness EXTERNAL FEMALE EXAM: No Hernia present Back/Pelvis: COMMON NORMALS: no CVA tenderness, thoracic and lumbar spine normal to inspection, no thoracic nor lumbar tenderness and thoraco-lumbar ROM normal Extremity: COMMON NORMALS: full ROM, no joint enlargement, no clubbing, cyanosis or edema and no calf tenderness NARRATIVE EXTREMITY EXAM: Left toes dusky and cooler in comparison to the right foot. No palpable pulse. Patient has pain with range of motion. Neuro: COMMON NORMALS: CN's II-XII intact bilaterally, moves all extremities, no focal motor deficits and no sensory deficits noted SENSORIUM/ORIENTATION: Yes lethargic MENINGEAL SIGNS: Yes no meningeal signs SPEECH: speech normal Psych: APPEARANCE: Yes well kempt Course ED course: 1215 -Case reviewed with Dr. Abarca, he will review the ultrasound and CTA and would like Lovenox given in the interim. 15:00 -Case again reviewed with Dr. Lindo, he will see the patient in consult would like the patient admitted to the hospitalist service. I reviewed the case in full with Dr. Gabriel and he is in agreement to come see the patient in the ER. Vital Signs: Vital signs: Vital Signs Temperature 97.9 F 10/15/19 10:54 Pulse Rate 90 10/15/19 10:54 Respiratory Rate 17 10/15/19 12:54 Blood Pressure 200/112 10/15/19 10:54 Pulse Oximetry 96 10/15/19 12:54 MDM - Extremity (Nontraumatic) MDM Narrative: Medical decision making narrative: Mrs. De La Cruz is a nice 78-year-old female who comes in complaining of altered mental status and mild cyanosis of her left toes. The patient does not complain of pain in her left foot unless it is bothered. longterm noted the change in the patient's color of her toes. Patient appears to have critical limb ischemia Dr. Jean-Baptiste is involved and notified. He is having of the patient Lovenox and he is going to work with Dr. Weir to determine when he is going to intervene. Patient shows no sign of acute limb ischemia although I think this is acute on chronic. Patient also has an altered mental status secondary to UTI. She is been treated with antibiotics. Clinically the patient appears septic although she does not have an elevated lactate. Patient is stable with a good blood pressure. Family is aware of the patient will be seen by both the hospitalist team Dr. Weir and by Dr. 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 Lab Data: Labs: Lab Results 10/15/19 10/15/19 10/15/19 Range/Units 11:40 11:40 11:40 WBC 5.7 (4.0-10.0) 10^3/ uL RBC 4.05 L (4.1-5.3) 10^6/u L Hgb 11.3 L (11.5-15.3) g/dL Hct 38.7 (37.0-47.0) % MCV 95.6 (81-99) fL MCH 27.9 L (28.0-34.0) pg MCHC 29.2 L (30.0-36.0) g/dL RDW 13.2 (12.1-15.1) % Plt Count 214 (130-400) 10^3/c mm MPV 9.5 (7.4-10.4) fL Neut % (Auto) 73.8 % Lymph % (Auto) 20.2 % [place] % (Auto) 5.6 % Eos % (Auto) 0.0 % Baso % (Auto) 0.2 % Neut # (Auto) 4.2 (1.8-7.7) 10^3/u L Lymph # (Auto) 1.2 (0.8-4.8) 10^3/u L [place] # (Auto) 0.3 (0.2-0.9) 10^3/u L Eos # (Auto) 0.0 (0.0-0.8) 10^3/u L Baso # (Auto) 0.0 (0.0-0.1) 10^3/u L Nucleated RBC % (a uto) 0 % Nucleated RBCs # 0.0 /100WBC PT 12.80 (10.5-13.3) SECO NDS INR 0.93 (0.8-1.2) APTT 23.0 L (23.9-36.7) SECO NDS Sodium 150 H (136-145) mmol/L Potassium 5.2 H (3.5-5.1) mmol/L Chloride 112 H (98-107) mmol/L Carbon Dioxide 30 H (22-29) mmol/L Anion Gap 13.2 (5-19) BUN 81 H D (8-23) mg/dL Creatinine 1.6 H (0.5-0.9) mg/dL Glucose 110 (65-115) mg/dL Calculated Osmolal ity 311 H (285-295) mOsm/k g Lactic Acid (0.5-2.2) mmol/L Calcium 10.5 (8.5-10.5) mg/dL Magnesium 2.9 H (1.7-2.3) mg/dL Total Bilirubin 0.2 (0.15-1.2) mg/dL AST 15 (0-32) U/L ALT < 5 (0-33) U/L Alkaline Phosphata se 100 (35-105) IU/L Creatine Kinase (26-192) U/L Troponin T Baselin e (0-10) ng/L Troponin T 120 Min [place] (0-10) ng/L Delta Troponin T (0-10) ABS# Total Protein 8.4 (6.6-8.7) g/dL Albumin 4.6 (3.5-5.2) g/dL Globulin 3.8 (1.3-4.6) g/dL Urine Color (Yellow) Urine Appearance (CLEAR) Urine pH (5-7) Ur Specific Gravit y (1.005-1.030) Urine Protein (Negative) Urine Glucose (UA) (Normal) Urine Ketones (Negative) Urine Blood (Negative) Urine Nitrate (Negative) Urine Bilirubin (NEGATIVE) Urine Urobilinogen (Negative) mg/dL Ur Leukocyte Merry ase (Negative) Urine RBC (0-2) /hpf Urine WBC (0-5) /hpf Ur Squamous Epith Cells (0-5) Urine Bacteria (NONE) 10/15/19 10/15/19 10/15/19 Range/Units 11:40 11:40 13:40 WBC (4.0-10.0) 10^3/ uL RBC (4.1-5.3) 10^6/u L Hgb (11.5-15.3) g/dL Hct (37.0-47.0) % MCV (81-99) fL MCH (28.0-34.0) pg MCHC (30.0-36.0) g/dL RDW (12.1-15.1) % Plt Count (130-400) 10^3/c mm MPV (7.4-10.4) fL Neut % (Auto) % Lymph % (Auto) % [place] % (Auto) % Eos % (Auto) % Baso % (Auto) % Neut # (Auto) (1.8-7.7) 10^3/u L Lymph # (Auto) (0.8-4.8) 10^3/u L [place] # (Auto) (0.2-0.9) 10^3/u L Eos # (Auto) (0.0-0.8) 10^3/u L Baso # (Auto) (0.0-0.1) 10^3/u L Nucleated RBC % (a uto) % Nucleated RBCs # /100WBC PT (10.5-13.3) SECO NDS INR (0.8-1.2) APTT (23.9-36.7) SECO NDS Sodium (136-145) mmol/L Potassium (3.5-5.1) mmol/L Chloride (98-107) mmol/L Carbon Dioxide (22-29) mmol/L Anion Gap (5-19) BUN (8-23) mg/dL Creatinine (0.5-0.9) mg/dL Glucose (65-115) mg/dL Calculated Osmolal ity (285-295) mOsm/k g Lactic Acid 1.1 (0.5-2.2) mmol/L Calcium (8.5-10.5) mg/dL Magnesium (1.7-2.3) mg/dL Total Bilirubin (0.15-1.2) mg/dL AST (0-32) U/L ALT (0-33) U/L Alkaline Phosphata se (35-105) IU/L Creatine Kinase (26-192) U/L Troponin T Baselin e 54 H (0-10) ng/L Troponin T 120 Min [place] (0-10) ng/L Delta Troponin T (0-10) ABS# Total Protein (6.6-8.7) g/dL Albumin (3.5-5.2) g/dL Globulin (1.3-4.6) g/dL Urine Color Yellow (Yellow) Urine Appearance Hazy A (CLEAR) Urine pH 5 (5-7) Ur Specific Gravit y 1.005 (1.005-1.030) Urine Protein Neg (Negative) Urine Glucose (UA) 1+ (Normal) Urine Ketones Negative (Negative) Urine Blood Neg (Negative) Urine Nitrate Positive H (Negative) Urine Bilirubin Neg (NEGATIVE) Urine Urobilinogen Norm (Negative) mg/dL Ur Leukocyte Merry ase 1+ H (Negative) Urine RBC None (0-2) /hpf Urine WBC 40-55 H (0-5) /hpf Ur Squamous Epith Cells None (0-5) Urine Bacteria 4+ H (NONE) 10/15/19 10/15/19 Range/Units 13:55 13:55 WBC (4.0-10.0) 10^3/ uL RBC (4.1-5.3) 10^6/u L Hgb (11.5-15.3) g/dL Hct (37.0-47.0) % MCV (81-99) fL MCH (28.0-34.0) pg MCHC (30.0-36.0) g/dL RDW (12.1-15.1) % Plt Count (130-400) 10^3/c mm MPV (7.4-10.4) fL Neut % (Auto) % Lymph % (Auto) % [place] % (Auto) % Eos % (Auto) % Baso % (Auto) % Neut # (Auto) (1.8-7.7) 10^3/u L Lymph # (Auto) (0.8-4.8) 10^3/u L [place] # (Auto) (0.2-0.9) 10^3/u L Eos # (Auto) (0.0-0.8) 10^3/u L Baso # (Auto) (0.0-0.1) 10^3/u L Nucleated RBC % (a uto) % Nucleated RBCs # /100WBC PT (10.5-13.3) SECO NDS INR (0.8-1.2) APTT (23.9-36.7) SECO NDS Sodium (136-145) mmol/L Potassium (3.5-5.1) mmol/L Chloride (98-107) mmol/L Carbon Dioxide (22-29) mmol/L Anion Gap (5-19) BUN (8-23) mg/dL Creatinine (0.5-0.9) mg/dL Glucose (65-115) mg/dL Calculated Osmolal ity (285-295) mOsm/k g Lactic Acid (0.5-2.2) mmol/L Calcium (8.5-10.5) mg/dL Magnesium (1.7-2.3) mg/dL Total Bilirubin (0.15-1.2) mg/dL AST (0-32) U/L ALT (0-33) U/L Alkaline Phosphata se (35-105) IU/L Creatine Kinase 43 (26-192) U/L Troponin T Baselin e (0-10) ng/L Troponin T 120 Min [place] 50.98 H (0-10) ng/L Delta Troponin T -3.02 L (0-10) ABS# Total Protein (6.6-8.7) g/dL Albumin (3.5-5.2) g/dL Globulin (1.3-4.6) g/dL Urine Color (Yellow) Urine Appearance (CLEAR) Urine pH (5-7) Ur Specific Gravit y (1.005-1.030) Urine Protein (Negative) Urine Glucose (UA) (Normal) Urine Ketones (Negative) Urine Blood (Negative) Urine Nitrate (Negative) Urine Bilirubin (NEGATIVE) Urine Urobilinogen (Negative) mg/dL Ur Leukocyte Merry ase (Negative) Urine RBC (0-2) /hpf Urine WBC (0-5) /hpf Ur Squamous Epith Cells (0-5) Urine Bacteria (NONE) Imaging Data^: CT Head: My impression: [place] [address] CT Scan Report Signed Patient: Keya De La Cruz Unit #: [id number] : 1940 Age/Sex: 78 / F ADM Date: 10/15/19 Loc: ER Room/Bed: Attending Dr: Ordering Provider/Ordering MD: Renate Biswas DO Date of Service: 10/15/19 Procedure(s): CT head wo con* 95300 Accession Number(s): [id number] Report Number: [id number] WS: [id number] CT HEAD TECHNIQUE: Noncontrast CT of the head obtained from the skullbase to the vertex. CLINICAL INFORMATION: Confusion COMPARISON: September 24, 2019 DLP: 835.[address] scans at [facility] use at least one of these dose optimization techniques: automated exposure control; mA and/or kV adjustment per patient size (includes targeted exams where dose is matched to clinical indication); or iterative reconstruction. FINDINGS: No evidence of intracranial hemorrhage or mass effect. Ventricular system and basal cisterns are patent. Moderate small vessel changes with moderate parenchymal volume loss. Chronic lacunar infarcts left baires radiata unchanged. No extra-axial fluid collections. No evidence of mass or mass effect. Normal chapa-white differentiation. Right maxillary retention cyst. Mastoid air cells well aerated. Notified Renate Biswas at 10/15/2019 12:[address]/CT head wo con* [id number] IMPRESSION: 1. No evidence of intracranial hemorrhage or mass effect. 2. Moderate small vessel changes. Moderate parenchymal volume loss. 3. No acute intracranial findings. Dictated By: Clifford Whittington MD Signed By: Clifford Whittington MD Signed Date/Time: 10/15/19 1236 DD/ 1232 CTA: Radiologist's impression: [address] [address] [address] Scan Report Signed Patient: Keya De La Cruz Unit #: [id number] : 1940 Age/Sex: 78 / F ADM Date: 10/15/19 Loc: ER Room/Bed: Attending Dr: Ordering Provider/Ordering MD: Renate Biswas DO Date of Service: 10/15/19 Procedure(s): CT angio abd aorta runof 37273 Accession Number(s): [id number] Report Number: [id number] PROCEDURE INFORMATION: Exam: CTA Angiogram of the Abdominal Aorta and Bilateral Lower Extremities (Run-off) With IV Contrast Exam date and time: 10/15/2019 12:09 PM Age: 78 years old Clinical indication: Pain; Other: Left lower leg; Prior surgery; Surgery date: 6+ months; Additional info: Lle pain TECHNIQUE: Imaging protocol: CT angiogram of the abdominal aorta, pelvis and bilateral lower extremities with IV iodinated contrast. 3D rendering: MIP and/or 3D reconstructed images were created by the technologist. Radiation optimization: All CT scans at this facility use at least one of these dose optimization techniques: automated exposure control; mA and/or kV adjustment per patient size (includes targeted exams where dose is matched to clinical indication); or iterative reconstruction. Contrast material: VISI 320; Contrast volume: 95 ml; Contrast route: INTRAVENOUS (IV); COMPARISON: CR Chest 1 view [id number] 08/05/2018 8:02 PM RADIATION DOSE METRICS: Total DLP (mGy-cm): 1756.89 FINDINGS: Aorta: Infrarenal abdominal aortic fusiform aneurysm is present measuring 4.2 cm 2 oblique AP dimension. Moderate left anterolateral mural thrombus. There is no evidence of rupture or leakage. Saccular aneurysm distal left anterolateral infrarenal abdominal aorta measuring 2.0 cm. No evidence of rupture. Right artery atherosclerotic calcifications without evidence of aneurysm. 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 Renal arteries: Bilateral single renal arteries. Bilateral severe renal artery origin stenosis. Right iliac arteries: No occlusion or significant stenosis. Right femoral/popliteal arteries: Less than 50% right common femoral artery stenosis. 50-70% stenosis proximal right superficial femoral artery stenosis. 50-70% stenosis distal right superficial femoral artery (adductor hiatus). Severe proximal right popliteal artery stenosis. Right infrapopliteal arteries: Severe right proximal tibioperoneal trunk stenosis. Occluded right posterior tibial artery. 2 vessel runoff to the right ankle. The right anterior tibial-dorsalis pedis artery supplies the forefoot. Limited opacification of the tibioperoneal trunk. Limited opacification of the anterior tibial artery origin. Left iliac arteries: No occlusion or significant stenosis. Left femoral/popliteal arteries: 50% stenosis left common femoral artery. Greater than 70% stenosis left superficial femoral artery origin. Patent multiple tandem left superficial femoral artery stents. 50-70% proximal left popliteal artery stenosis. Occluded mid left popliteal artery. Occluded left popliteal artery stent. Reconstitution of a small caliber distal left popliteal artery. Left infrapopliteal arteries: Occluded left posterior tibial artery. 2 vessel runoff of the left ankle. The left dorsalis pedis artery is not opacified. Heart: Mild cardiac left ventricular enlargement. Cardiac left ventricular inferoapical myocardial thinning suggesting chronic infarction. Liver: No mass. Gallbladder and bile ducts: Unremarkable. No calcified stones. No ductal dilation. Pancreas: Severe pancreatic atrophy. Spleen: Normal. No splenomegaly. Adrenals: Normal. No mass. Kidneys and ureters: Normal. No mass. Stomach and bowel: Unremarkable. No obstruction. No mucosal thickening. Appendix: The vermiform appendix is normal. Bladder: Unremarkable. No mass. Reproductive: Small calcified uterine leiomyoma. Intraperitoneal space: Right iliac fossa surgical clip. Lymph nodes: No lymphadenopathy. Bones/joints: Diffuse osteopenia. 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 Bilateral navicular-cuneiform, right tibiotalar primary osteoarthritis. Bilateral lower lumbar facet primary osteoarthritis. Lumbar spine vertebral body marginal osteophytes are noted at multiple levels. Soft tissues: Focal ectasia of intramuscular vessels of the left peroneus muscle group just above the mid point of the lower leg (series 208, images 23-26; series 3, images 390-409). CT/CT angio abd aorta runof 39850 IMPRESSION: 1. 50-70% stenosis proximal right superficial femoral artery stenosis. 2. 50-70% stenosis distal right superficial femoral artery (adductor hiatus). 3. Severe proximal right popliteal artery stenosis. 4. Severe right proximal tibioperoneal trunk stenosis. 5. Occluded right posterior tibial artery. 6. 50% stenosis left common femoral artery. 7. Greater than 70% stenosis left superficial femoral artery origin. 8. Patent multiple tandem left superficial femoral artery stents. 9. 50-70% proximal left popliteal artery stenosis. 10. Occluded mid left popliteal artery. 11. Occluded left popliteal artery stent. 12. Reconstitution of a small caliber distal left popliteal artery. 13. Occluded left posterior tibial artery. 14. The left dorsalis pedis artery is not opacified. This may be technical. Clinical correlation/Doppler evaluation recommended. 15. Nonspecific intramuscular lesion left peroneus longus muscle. Clinical correlation is recommended. MRI may add additional useful information if clinically indicated. 16. Bilateral severe renal artery origin stenosis. Clinical correlation (systemic hypertension?) is recommended. 17. 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 18. Infrarenal abdominal aortic aneurysms. Comparison with prior studies recommended, if available. Followup recommended. 19. Small calcified uterine leiomyoma. 20. Mild cardiac left ventricular enlargement. 21. Cardiac left ventricular inferoapical myocardial thinning suggesting chronic infarction. Radiation Dose CTDIVOL = (mGy): DLP = 1756.89 (mGy-cm) Dictated By: Bear Rahman MD Signed By: Bear Rahman MD Signed Date/Time: 10/15/19 1409 DD/ 1407 US Vascular: My impression: Verbal report from Dr. Florin -no flow below the popliteal artery but minimal collateral flow present in left dorsalis pedis artery. EKG Data^: EKG 1: Attestation: I personally reviewed and interpreted this EKG as follows: EKG interpretation date: 10/15/19 EKG interpretation time: 11:58 Interpretation: Normal sinus rhythm at 86 beats a minute, normal axis, no acute ST or T wave changes. EKG 2: Attestation: I personally reviewed and interpreted this EKG as follows: EKG interpretation date: 10/15/19 EKG interpretation time: 13:20 Interpretation: Normal sinus rhythm at 96 beats a minute, no specific ST-T wave changes. PVC noted. Discharge Plan Discharge Patient Disposition: Admitted As Inpatient Clinical Impression: Acute alteration in mental status, Acute UTI, Critical ischemia of lower extremity Condition: Stable Referrals: Simon Garcia [Primary Care Provider] - Coding Level of Care Code ED Manager Oracle Database for Chg Fwd Exam Comprehensive
[2019-10-15 12:18] LABS: Alanine Aminotransferase < 5 U/L (0-33); Albumin Level 4.6 g/dL (3.5-5.2); Alkaline Phosphatase 100 IU/L (35-105); Anion Gap 13.2 (5-19); Aspartate Amino Transferase 15 U/L (0-32); Calcium 10.5 mg/dL (8.5-10.5); Carbon Dioxide 30 mmol/L (22-29); Chloride 112 mmol/L (98-107); Globulin 3.8 g/dL (1.3-4.6); Glucose 110 mg/dL (65-115); Magnesium 2.9 mg/dL (1.7-2.3); Osmolality Calculated 311 mOsm/kg (285-295); Potassium 5.2 mmol/L (3.5-5.1); Sodium 150 mmol/L (136-145); Total Bilirubin 0.2 mg/dL (0.15-1.2); Total Protein 8.4 g/dL (6.6-8.7)
--- NOTE | 2019-10-15 12:18 | CT_ITS ---
WS: [id number] CT HEAD TECHNIQUE: Noncontrast CT of the head obtained from the skullbase to the vertex. CLINICAL INFORMATION: Confusion COMPARISON: September 24, 2019 DLP: 835.[address] scans at [facility] use at least one of these dose optimization techniques: automat ed exposure control; mA and/or kV adjustment per patient size (includes targeted exams where dose is matched to clinical indication); or iterative reconstruction. FINDINGS: No evidence of intracranial hemorrhage or mass effect. Ventricular system and basal cisterns are chairez nt. Moderate small vessel changes with moderate parenchymal volume loss. Chronic lacunar infarcts lef t baires radiata unchanged. No extra-axial fluid collections. No evidence of mass or mass effect. Nor mal chapa-white differentiation. Right maxillary retention cyst. Mastoid air cells well aerated. Notified Renate Biswas at 10/15/2019 12:[address]/CT head wo con* [id number] IMPRESSION: 1. No evidence of intracranial hemorrhage or mass effect. 2. Moderate small vessel changes. Moderate parenchymal volume loss. 3. No acute intracranial findings.
[2019-10-15 12:24] LABS: Lactic Sepsis W/Reflex 1.1 mmol/L (0.5-2.2)
[2019-10-15 12:26] LABS: Troponin(5th) Baseline 54 ng/L (0-10)
[2019-10-15 12:27] LABS: Blood Urea Nitrogen 81 mg/dL (8-23)
[2019-10-15 12:39] LABS: INR 0.93 (0.8-1.2)
[2019-10-15] MEDS: iodixanol 320 mg/mL 100mL Btl IV (12:42)
[2019-10-15] MEDS: ondansetron 2 mg/ML SDV 2 mL 4 MG IVP (12:54)
[2019-10-15] MEDS: morphine 4 mg/mL SDV 1 mL IVP ×2 (12:54→17:17)
--- NOTE | 2019-10-15 13:32 | ECG_ITS ---
[facility] Test Date: 2019-10-15 Pat Name: Keya De La Cruz Department: Room: Gender: Female Nurse Companion: : 1940 Requested By: Renate Bach Order Number: [id number] Del Rio MD: Sienna Parekh M.D. Measurements Intervals [place] Rate: 96 P: 54 ND: 180 QRS: 17 QRSD: 77 T: 52 QT: 346 QTc: 437 Interpretive Statements SINUS RHYTHM WITH OCCASIONAL VENTRICULAR PREMATURE COMPLEXES Compared to ECG 10/15/2019 11:58:54 Ventricular premature complex(es) now present Electronically Signed On 10-15-2019 20:55:09 CDT by Sienna Parekh M.D. [id number]
[2019-10-15 13:57] LABS: Bilirubin Urine Neg (NEGATIVE); Blood Urine Neg (Negative); Glucose Urine UA 1+ (Normal); Ketones Urine Negative (Negative); Leukocyte Esterase Urine 1+ (Negative); Nitrate Urine Positive (Negative); Protein Urine Neg (Negative); Specific Gravity, Urine 1.005 (1.005-1.030); Urine Appearance Hazy (CLEAR); Urine Color Yellow (Yellow); Urobilinogen Urine Norm (Negative); pH Urine 5 (5-7)
[2019-10-15 14:03] LABS: Add Urine Culture? Yes; Bacteria Urine 4+; WBC Urine 40-55 /hpf (0-5)
[2019-10-15 14:27] LABS: Troponin 5 2HR 50.98 ng/L (0-10)
[2019-10-15] MEDS: cefTRIAXone 1,000 MG in sodium chloride 0.9% (plus) 50 ML 100 MG IV (14:34)
[2019-10-15] MEDS: enoxaparin 80 mg/0.8 mL Syringe 76 MG SUBCUT (14:37)
[2019-10-15 14:42] LABS: Troponin 5 2HR Delta -3.02 ABS# (0-10)
[2019-10-15 15:50] LABS: Creatine Phosphokinase 43 U/L (26-192)
[2019-10-15 17:51] LABS: Glucose Point of Care 94 mg/dL (70-110)
--- NOTE | 2019-10-15 18:00 | PC.NURSE ---
Patient arrived to room from ER. Patient is not A&O to person, place, time, or situation. Patient rambling without any coherent speech. Patient noticed to have a slight left sided facial droop. Vitals and blood glucose assessed, WNL. Patient has a history of CVA. Dr. Weir notified of findings. Physician to call [facility] and determine baseline of patient. No new orders at this time.
--- NOTE | 2019-10-15 19:09 | PM.CONSULT ---
Providers/Reason For Consult Consulting Physican/Specialty*: Interventional cardiology Reason for Consult*: Critical limb ischemia Attending Physician: Megan Weir MD Primary Care Provider: Simon Garcia History of Present Illness History of Present Illness Keya De La Cruz is a 78 year old female Brought in by family she is a half-way resident baseline history of extensive tobacco abuse quit in February of last year when she had left-sided CVA, history of peripheral vascular disease status post atherectomy and balloon angioplasty of left SFA popliteal tibioperoneal artery and balloon angioplasty of less dorsalis pedis few months ago, history of hypertension hyperlipidemia who is fairly mobile brought in with altered mental status changes and with questionable left foot pain. Left foot appeared to be warm moist, there is no dopplerable pulse in the left foot but there is a faint popliteal dopplerable pulse of the left leg. CTA with runoff was suggestive occluded mid left popliteal artery and posterior tibial which is chronically occluded, there is also no distal filling of the dorsalis pedis of the left side. Patient is confused but moves her legs there is more no motor deficit. Patient has acute renal failure also appear to be dehydrated and possible UTI for which medicine is treating her. Please note that it is hard to take her history due to confusion. Review of Systems General: Reports: Other (ROS limited secondary to patient's altered mental status.) Skin/Breast: Reports: surgical incision Meds/Allergies Home Medications and Allergies Home Medications Medication Instructions Recorded Confirmed Last Taken Type atorvastatin 40 mg PO DAILY 04/30/19 10/15/19 10/14/19 History donepezil 5 mg PO DAILY 04/30/19 10/15/19 10/14/19 History gabapentin 100 mg PO TID 04/30/19 10/15/19 10/15/19 History hydrochlorothiazide 12.5 mg PO DAILY 04/30/19 10/15/19 10/15/19 History lisinopril 20 mg PO DAILY 04/30/19 10/15/19 10/15/19 History polyethylene glycol 3350 17 g PO DAILY 04/30/19 10/15/19 10/15/19 History venlafaxine 37.5 mg PO BID 04/30/19 10/15/19 10/15/19 History memantine 10 mg PO BID 05/01/19 10/15/19 10/15/19 History folic acid 1 mg PO DAILY #30 tab 05/02/19 10/15/19 10/15/19 Rx pantoprazole [Protonix] 40 mg PO DAILY #30 each 05/02/19 10/15/19 10/15/19 Rx melatonin 3 mg PO BEDTIME 07/21/19 10/15/19 10/14/19 History clopidogrel 75 mg PO DAILY 09/24/19 10/15/19 10/15/19 History honey [MediHoney (honey)] 1 applic TOPICAL DAILY 09/24/19 10/15/19 10/14/19 History acetaminophen [Tylenol Arthritis 1,300 mg PO Q6H PRN 10/15/19 10/15/19 Unknown History Pain] acetaminophen [Tylenol] 650 mg PO QID PRN 10/15/19 10/15/19 Unknown History alprazolam 0.25 mg PO BID PRN 10/15/19 10/15/19 Unknown History amino acids-protein hydrolys 30 ea PO BID 10/15/19 10/15/19 10/15/19 History [Pro-Stat AWC] bisacodyl 10 mg [place] DAILY PRN 10/15/19 10/15/19 Unknown History hydrocodone-acetaminophen 1 tab PO Q6H PRN 10/15/19 10/15/19 10/15/19 History magnesium hydroxide [Milk of 30 ml PO DAILY PRN 10/15/19 10/15/19 Unknown History Magnesia] sennosides-docusate sodium 1 tab-cap PO BID 10/15/19 10/15/19 10/14/19 History [Senna-S] sodium phosphates [Enema] 118 ml [place] DAILY PRN 10/15/19 10/15/19 Unknown History Allergies Allergy/AdvReac Type Severity Reaction Status Date / Time No Known Allergies Allergy Verified 10/15/19 10:55 Current Medications Current Medications Generic Name Dose Route Start Last Admin Trade Name Freq PRN Reason Stop Dose Admin Sodium Chloride 1,000 mls @ 100 mls/hr 10/15/19 11:30 10/15/19 17:53 Sodium Chloride 0.9% IV Infused .Q10H LEANN Infusion Sodium Chloride 1,000 mls @ 100 mls/hr 10/15/19 17:45 10/15/19 17:52 Sodium Chloride 0.9% IV 100 mls/hr .Q10H LEANN Administration PFSH Acute PFSH: Medical History (Updated 10/15/19 @ 19:46 by Zulema Lindo MD) Alzheimer's dementia Anemia COPD (chronic obstructive pulmonary disease) CVA (cerebral vascular accident) Depression DVT (deep venous thrombosis) Hyperlipidemia Hypertension Peripheral vascular disease Tobacco abuse, in remission Surgical History History of dilatation and curettage Family History Denies family history of CAD (coronary artery disease) Stroke Social History Smoking and tobacco status: former smoker Quit status (tobacco): has quit using tobacco Year quit tobacco: February 2019 Alcohol intake: never Housing: Shelter Dietary Habits: Current diet type/program: regular Caffeine: Yes Exercise: What type of physical activity do you participate in?: none Physical activity functional status: wheelchair user Safety: Seatbelt use: always Home Safety: Water heater temperature set < 120 degrees: No Working smoke detector in home: Yes Fire extinguisher in home: Yes Carbon monoxide detector in home: Yes Personal Safety: Do you feel safe at home: No Victim of physical abuse: No Victim of emotional abuse: No Victim of sexual abuse: No Would you like help information on resources?: No Vitals/I&O/Wt Last Vital Signs Temp 97.9 F 10/15/19 10:54 Pulse 98 10/15/19 18:00 Resp 17 10/15/19 18:00 BP 149/76 10/15/19 18:00 Pulse Ox 94 10/15/19 18:00 10/15/19 10/15/19 10/15/19 06:59 14:59 22:59 Intake Total 643.333 / 643.333 Output Total 775 / 775 Balance -131.667 / -131.667 Weight last 48 hrs Weight 167 lb Physical Exam Narrative: EXAM NARRATIVE: GENERAL: Patient is confused NECK: No jugular vein distension. HEENT: No cyanosis. No icterus. No pallor. HEART: Regular S1 and S2. No murmur, rub or gallop. LUNGS: Clear to auscultate bilaterally. CENTRAL NERVOUS SYSTEM: Confused, patient has a underlying dementia motor and sensory positive EXTREMITIES: Lower extremities without edema bilaterally. No dorsalis pedis and posterior tibial in the left foot but it is warm moist and dusky Urinary Catheter Management^: Richardson: Cath Placed During This Visit: yes Urinary Catheter Date of Insertion: 10/15/19 Urinary Catheter Time of Insertion: 14:07 Data Labs: Other Labs: CT/CT angio abd aorta runof 30030 IMPRESSION: 1. 50-70% stenosis proximal right superficial femoral artery stenosis. 2. 50-70% stenosis distal right superficial femoral artery (adductor hiatus). 3. Severe proximal right popliteal artery stenosis. 4. Severe right proximal tibioperoneal trunk stenosis. 5. Occluded right posterior tibial artery. 6. 50% stenosis left common femoral artery. 7. Greater than 70% stenosis left superficial femoral artery origin. 8. Patent multiple tandem left superficial femoral artery stents. 9. 50-70% proximal left popliteal artery stenosis. 10. Occluded mid left popliteal artery. 11. Occluded left popliteal artery stent. 12. Reconstitution of a small caliber distal left popliteal artery. 13. Occluded left posterior tibial artery. 14. The left dorsalis pedis artery is not opacified. This may be technical. Clinical correlation/Doppler evaluation recommended. 15. Nonspecific intramuscular lesion left peroneus longus muscle. Clinical correlation is recommended. MRI may add additional useful information if clinically indicated. 16. Bilateral severe renal artery origin stenosis. Clinical correlation (systemic hypertension?) is recommended. 17. 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 18. Infrarenal abdominal aortic aneurysms. Comparison with prior studies recommended, if available. Followup recommended. 19. Small calcified uterine leiomyoma. 20. Mild cardiac left ventricular enlargement. 21. Cardiac left ventricular inferoapical myocardial thinning suggesting chronic infarction. Radiation Dose CTDIVOL = (mGy): DLP = 1756.89 (mGy-cm) Dictated By:Bear Rahman MD Signed By:Bear Rahmanigned Date/Time:10/15/19 9902 A&P Assessment and plan (1) Critical limb ischemia with history of revascularization of same extremity: Patient had prior intervention including atherectomy and balloon angioplasty. According to the family and ER documentation patient was complaining of left foot pain she appeared to be confused she has a renal failure possibly she has a UTI as well. Since it is not an acute leg and her left foot is warm moist we will IV hydrate her once creatinine normalized and patient can give us good history we will further plan regarding peripheral angiogram and possible percutaneous intervention if indicated. Continue Lovenox Status: Acute (2) Hypertension: Well-controlled. Could discontinue hydrochlorothiazide for worsening of renal failure and hold lisinopril. We can use Nitropaste and IV hydralazine for the blood pressure Status: Acute Qualifiers: Hypertension type: essential hypertension Qualified Code(s): I10 - Essential (primary) hypertension (3) Acute alteration in mental status: IV hydration and possible antibiotics for UTI as per medicine. Status: Acute (4) Alzheimer's dementia: Patient has baseline Alzheimer's/dementia, she is confused most likely combination of dementia but UTI and dehydration. Continue treating with IV fluid Status: Acute Qualifiers: Alzheimer's disease onset: unspecified onset Dementia behavioral disturbance: without behavioral disturbance Qualified Code(s): G30.9 - Alzheimer's disease, unspecified; F02.80 - Dementia in other diseases classified elsewhere without behavioral disturbance (5) Acute renal failure (ARF): Most likely secondary to prerenal and dehydration. Hold lisinopril hold hydrochlorothiazide, continue IV fluid as per medicine 100 mL/h Status: Acute Coding Level of Care Code New Pt Acute Specialty Department Supervisor for [facility] Gio Patient Type New History Detailed Exam Detailed Medical Decision Making Moderate Complexity Diagnoses Critical limb ischemia with history of revascularization of same extremity I99.8; Z95.9 Hypertension I10 Hypertension type: essential hypertension Acute alteration in mental status R41.82 Alzheimer's dementia G30.9; F02.80 Alzheimer's disease onset: unspecified onset Dementia behavioral disturbance: without behavioral disturbance Acute renal failure (ARF) N17.9
[2019-10-15 19:22] LABS: Troponin 5 6HR 56.85 ng/L (0-10); Troponin 5 6HR Delta 2.85 ng/L (0-12)
--- NOTE | 2019-10-15 19:23 | PC.NURSE ---
Patient attempting to get out of bed. Patient not A/O. Patient unable to be redirected. Bed alarm reset. Physician notified of behaviors. Physician gave RBVO to place patient on 1:1 status.
--- NOTE | 2019-10-15 19:28 | P.HP_ITS ---
Providers/Chief Complaint Admitting Physician: Megan Weir MD Primary Care Provider: Simon Garcia Chief Complaint: CONFUSED/ NO PEDAL PULSES IN L FOOT History of Present Illness Keya De La Cruz is a 78 year old female with past medical history of CVA (residual bilateral lower extremity weakness and speech impairment), Alzheimer's, hypertension, hyperlipidemia, depression. She has a h/o critical limb ischemia in 04/2019 and then again in 07/2019. In she underwent CTA which showed DVT of the left leg as well as severe iliofemoral popliteal left- sided stenosis. The following day she was taken for peripheral angiogram which revealed ostial left SFA chronic occlusion, left profunda and 100% occlusion of mid distal SFA, popliteal and tibial peroneal trunk with no flow below the knee. She was treated with atherectomy of the ostial mid and distal left SFA, as well as atherectomy of the tibioperoneal trunk into the left anterior tibial. The distal anterior tibial and arch vessels in the foot were treated with balloon angioplasty with good yarsani of flow from the SFA to the foot (one vessel runoff into the arch with the anterior tibial. After blood transfusion due to anemia, she was started on Eliquis. Hospital discharge 05/02/2019.She then underwent angioplasty and stent placement in 07/2019 at [facility]. It appears her a/c was discontinued at that time due to drop in Hb to 7.7 at the time. She is brought today from [facility] due to complaints of worsening mentation and confusion. Also reportedly her leg was noted to be more purple colored than pre viously raising concern for recurrent ischemia. She is currently confused and unable to provide any history. I am unable to reach the AL to obtain any further history regarding the day's events. Per review of prior office visit notes, it appears it has been hard to obtain history from her in the past due to advanced dementia. Diagnistics thus far notable for hypernatremia, Na 150, high serum osmollaity, cr 1.6 (appears to be new baseline since July), UA + LA, wbc and bacteria. CT head negative for acute process. LE doppler negative for VTE. CTA runoff shows multilevel occlusion, however uncertain if this represents chronic changes vs new changes Review of Systems General: Reports: ROS unobtainable due to mental status Medications/Allergies Home Medications Medication Instructions Recorded Confirmed Last Taken Type atorvastatin 40 mg PO DAILY 04/30/19 10/15/19 10/14/19 History donepezil 5 mg PO DAILY 04/30/19 10/15/19 10/14/19 History gabapentin 100 mg PO TID 04/30/19 10/15/19 10/15/19 History hydrochlorothiazide 12.5 mg PO DAILY 04/30/19 10/15/19 10/15/19 History lisinopril 20 mg PO DAILY 04/30/19 10/15/19 10/15/19 History polyethylene glycol 3350 17 g PO DAILY 04/30/19 10/15/19 10/15/19 History venlafaxine 37.5 mg PO BID 04/30/19 10/15/19 10/15/19 History memantine 10 mg PO BID 05/01/19 10/15/19 10/15/19 History folic acid 1 mg PO DAILY #30 tab 05/02/19 10/15/19 10/15/19 Rx pantoprazole [Protonix] 40 mg PO DAILY #30 each 05/02/19 10/15/19 10/15/19 Rx melatonin 3 mg PO BEDTIME 07/21/19 10/15/19 10/14/19 History clopidogrel 75 mg PO DAILY 09/24/19 10/15/19 10/15/19 History honey [MediHoney (honey)] 1 applic TOPICAL DAILY 09/24/19 10/15/19 10/14/19 History acetaminophen [Tylenol Arthritis 1,300 mg PO Q6H PRN 10/15/19 10/15/19 Unknown History Pain] acetaminophen [Tylenol] 650 mg PO QID PRN 10/15/19 10/15/19 Unknown History alprazolam 0.25 mg PO BID PRN 10/15/19 10/15/19 Unknown History amino acids-protein hydrolys 30 ea PO BID 10/15/19 10/15/19 10/15/19 History [Pro-Stat AWC] bisacodyl 10 mg [place] DAILY PRN 10/15/19 10/15/19 Unknown History hydrocodone-acetaminophen 1 tab PO Q6H PRN 10/15/19 10/15/19 10/15/19 History magnesium hydroxide [Milk of 30 ml PO DAILY PRN 10/15/19 10/15/19 Unknown History Magnesia] sennosides-docusate sodium 1 tab-cap PO BID 10/15/19 10/15/19 10/14/19 History [Senna-S] sodium phosphates [Enema] 118 ml [place] DAILY PRN 10/15/19 10/15/19 Unknown History Allergies Allergy/AdvReac Type Severity Reaction Status Date / Time No Known Allergies Allergy Verified 10/15/19 10:55 PFSH Acute PFSH: Medical History Alzheimer's dementia Anemia COPD (chronic obstructive pulmonary disease) CVA (cerebral vascular accident) Depression DVT (deep venous thrombosis) Hyperlipidemia Hypertension Peripheral vascular disease Tobacco abuse, in remission Surgical History History of dilatation and curettage Family History Denies family history of CAD (coronary artery disease) Stroke Social History Smoking and tobacco status: former smoker Quit status (tobacco): has quit using tobacco Year quit tobacco: February 2019 Alcohol intake: never Housing: Custodial Vitals/I&O/Wt Last Vital Signs Temp 97.9 F 10/15/19 10:54 Pulse 98 10/15/19 18:00 Resp 17 10/15/19 18:00 BP 149/76 10/15/19 18:00 Pulse Ox 94 10/15/19 18:00 10/15/19 10/15/19 10/15/19 06:59 14:59 22:59 Intake Total 643.333 / 643.333 Output Total 775 / 775 Balance -131.667 / -131.667 Weight last 48 hrs Weight 75.75 kg Physical Exam Narrative: EXAM NARRATIVE: GEN: confused, unable to participate in conversation CVS: S1S2 N RS: CTA B/L Abd: Soft, nt/nd , bs+ INFORMATICS EDUCATOR: unable to assess, moves left leg in bed Urinary Catheter Management^: Richardson: Cath Placed During This Visit: yes Urinary Catheter Date of Insertion: 10/15/19 Urinary Catheter Time of Insertion: 14:07 Data : 10/15/19 11:40 10/15/19 11:40 A&P Assessment and plan (1) Acute alteration in mental status: May be related to metabolic encephalopathy from UTI vs hypernatremia and dehydration + UA, check urine and blood cultures D/c NS, change fluids to 1/2 NS @75cc/hr, recheck with am labs Cr 1.6 appears to be at recent baseline since July 2019 IV ceftriaxone empirically while awaiting cx results Status: Acute (2) Acute UTI: iv ceftriaxone as above Status: Acute (3) Critical ischemia of lower extremity: Multilevel occlusion on CTA, unclear if representing acute or chronic changes Lovenox 80mg q24h (renally dosed) Cardiology evaluation Status: Acute (4) Critical limb ischemia with history of revascularization of same extremity: Continue antiplatelets and statins Lovenox as above, closely monitor Hb level Status: Acute (5) Alzheimer's dementia: Continue aricept and namenda Status: Acute Qualifiers: Alzheimer's disease onset: unspecified onset Dementia behavioral disturbance: without behavioral disturbance Qualified Code(s): G30.9 - Alzheimer's disease, unspecified; F02.80 - Dementia in other diseases classified elsewhere without behavioral disturbance (6) Hypernatremia: change IVF to 1/2 NS Status: Acute Additional A&P Information Hypertension: Hold lisinorpil given hyperkalemia and cr 1.6, patient appears clinically dehydrated . Ordered hydralazine 10mg iv q4h prn Reduce opiate dosing to 2mg iv q8h morphine DNR/DNI based on review of AL transfer records dvt ppx: lovenox Diet: npo for now until mentation improved Attestations Medical Necessity Statement*: >2 midnight admission for UTI, metabolic encephalopathy and limb ischemia Coding Level of Care Code Acute Anvilsmith for tan Fwolinda Diagnoses Acute alteration in mental status R41.82 Acute UTI N39.0 Critical ischemia of lower extremity I99.8 Critical limb ischemia with history of revascularization of same extremity I99.8; Z95.9 Alzheimer's dementia G30.9; F02.80 Alzheimer's disease onset: unspecified onset Dementia behavioral disturbance: without behavioral disturbance Hypernatremia E87.0
--- NOTE | 2019-10-15 21:00 | PC.NURSE ---
Received report from CHICA Castro. Pt attempting to get oob, pulling at IV and tele monitor. Sitter now at bedside.
[2019-10-15] MEDS: sodium chloride 0.45% 1,000 ML 75 ML IV (23:23)
[2019-10-15] MEDS: enoxaparin 80 mg/0.8 mL Syringe SUBCUT (23:25)
[2019-10-16] VITALS (8 sets, daily range): BP systolic 115–155; BP diastolic 72–80; PULSE 88–102; RESP 12–26; TEMP 36.5–36.9; O2SAT 93–98
[2019-10-16 04:31] LABS: Basophils % 0.2 %; Hematocrit 34.4 % (37.0-47.0); Hemoglobin 10.1 g/dL (11.5-15.3); Lymphocytes # 1.4 10^3/uL (0.8-4.8); Lymphocytes % 21.1 %; Mean Corpuscular HGB Conc 29.4 g/dL (30.0-36.0); Mean Corpuscular Hemoglobin 28.1 pg (28.0-34.0); Mean Corpuscular Volume 95.8 fL (81-99); Monocytes # 0.5 10^3/uL (0.2-0.9); Monocytes % 7.6 %; Neutrophils # 4.6 10^3/uL (1.8-7.7); Neutrophils % 70.8 %; Nucleated Red Blood Cells % 0 %; Platelet Count 196 10^3/cmm (130-400); Red Blood Count 3.59 10^6/uL (4.1-5.3); Red Cell Distribution Width 13.2 % (12.1-15.1); White Blood Count 6.5 10^3/uL (4.0-10.0)
[2019-10-16 05:35] LABS: Thyroid Stimulating Hormone 0.02 uIU/mL (0.27-4.20)
[2019-10-16 05:48] LABS: Alanine Aminotransferase 6 U/L (0-33); Albumin Level 3.9 g/dL (3.5-5.2); Alkaline Phosphatase 90 IU/L (35-105); Aspartate Amino Transferase 13 U/L (0-32); Blood Urea Nitrogen 58 mg/dL (8-23); Calcium 9.8 mg/dL (8.5-10.5); Carbon Dioxide 27 mmol/L (22-29); Chloride 116 mmol/L (98-107); Globulin 3.6 g/dL (1.3-4.6); Glucose 140 mg/dL (65-115); Osmolality Calculated 317 mOsm/kg (285-295); Sodium 153 mmol/L (136-145); Total Bilirubin 0.3 mg/dL (0.15-1.2); Total Protein 7.5 g/dL (6.6-8.7)
--- NOTE | 2019-10-16 06:00 | XR_ITS ---
WS: [id number] CHEST XRAY TECHNIQUE: Portable chest. CLINICAL INFORMATION: dyspnea COMPARISON: August 05, 2018 FINDINGS: Heart: Cardiomegaly. Lungs: Moderate chronic emphysematous changes. No acute infiltrates. Bones: Normal visualized bony structures. XR/XR chest 1V portable [id number] IMPRESSION: No acute chest findings
--- NOTE | 2019-10-16 06:36 | PC.NURSE ---
Spoke with pt's daughter Génesis. [place]helle [place].
[2019-10-16] MEDS: morphine 4 mg/mL SDV 1 mL 2 MG IVP (09:19)
--- NOTE | 2019-10-16 09:31 | PC.NURSE ---
Nurse attempted to administer morning medications, patient unable to swallow meds. Nurse clarified NPO status with Dr. Weir to see if pudding or applesauce could be allowed with meds. Physician instructed nurse to place oral medications on hold and keep patient NPO. Nurse to continue to monitor.
--- NOTE | 2019-10-16 09:47 | PC.CHAP ---
Pastoral Care Encounter/Spiritual Assessment Type of Contact [] Declined chair pad maker visit [] Patient/Family/Request visit [] Outpatient visit [] Follow-up visit [] Physician referral [] Code/Alert [x] Routine visit [] Staff referral [] Actively dying [] Patient sleeping [] Family support [] [] Out of room [] Palliative care [] [] Receiving care in room [] Pre-surgical visit [] Trauma [] Long length of stay [] ICU visit [] Other: Relational/Emotional Strength [] Patient feels connected with others/family/visitors/staff [] Distress [] Loneliness/isolation [] Abandonment Spirituality of Patient [] Person of Ilsa [] Attends Hoahaoism of their Ilsa [] Believes in Prayer [] Reads Bible or Jewish materials [] There are Spiritual issues to be addressed Photographer Scientific Interventions [x] Prayer [x] Active listening [x] Non-anxious presence [x] Spiritual/emotional support [] Crisis/trauma care [] Spiritual counseling [] Bereavement support [] Provided bereavement packet [] Provided Bible/devotional materials [] Provided toy/stuffed animal, coloring book to patient or family member [] Provided Communion [] Anointing/[place] [] Salvation [x] Completed spiritual assessment [] Other: Impact on Illness or Injury [] Angry [] Fearful [] Anxious [] Often cries [] Exhaustion [] Unable to work [] Unable to attend faith [] Unable to walk/stand [] Unable to read [] Unable to drive [] Unable to eat/drink [] Unable to sleep [] Unable to be with family [] Patient intubated [] Other: Summary Patient has setter- continues to be confused. Time spent with patient 10 min
--- NOTE | 2019-10-16 10:47 | P.PN_ITS ---
Subjective Subjective: Interval history: No significant changes in mental status this morning. Sodium has trended up to 153. Fluids been changed from half NS to D5 water. Potassium better at 5.0 this morning. Has been improving at 1.6 BUN glucose is well controlled 1 10-1 40s. Patient remains n.p.o. Refused all of her p.o. medications this morning. Troponins with negative delta's. Grossly left lower extremity appears to be similar in appearance. TSH is 0.2. We will go ahead and obtain free T3-T4. Medications: Reviewed: Yes Vitals/I&O/Wt Last Vital Signs Temp 98.1 F 10/16/19 07:40 Pulse 102 H 10/16/19 07:40 Resp 12 10/16/19 09:19 BP 155/80 10/16/19 07:40 Pulse Ox 95 10/16/19 07:40 10/15/19 10/16/19 10/16/19 22:59 06:59 14:59 Intake Total 643.333 / 856.343 3819 / 1643.333 Output Total 775 / 775 800 / 1575 Balance -131.667 / -131.667 200 / 68.333 Weight last 48 hrs Weight 68.492 kg Weight 75.75 kg Physical Exam Narrative: EXAM NARRATIVE: GEN: confused, unable to participate in conversation CVS: S1S2 N RS: CTA B/L Abd: Soft, nt/nd , bs+ FARO DEALER: unable to assess, moves left leg in bed Urinary Catheter Management^: Richardson: Cath Placed During This Visit: yes Reason for Continuing Indwelling Catheter: Acute Urinary Retention or Obst ruction Urinary Catheter Date of Insertion: 10/15/19 Urinary Catheter Time of Insertion: 14:07 Data : 10/16/19 03:43 10/16/19 03:43 Micro: Microbiology 10/16/19 03:43 Blood Culture - Preliminary Blood SPECIMEN COLLECTED 10/16/19 03:43 Blood Culture - Preliminary Blood SPECIMEN COLLECTED A&P Assessment and plan (1) Acute alteration in mental status: May be related to metabolic encephalopathy from UTI vs hypernatremia and dehydration + UA, awaiting urine and blood cultures Change fluids to D5 water today. Discussed with daughter, if we need to do free water flushes and patient is not able to consistently tolerate a p.o. intake it would be okay to do a short-term NG placement. Discussed extensively with daughter. She states that at a baseline patient is not nonverbal. Is not really able to converse except to speak a few sentences intermittently. She does not recognize the daughter however she is able to eat or drink with much encouragement and able to swallow. Over the past 3 to 4 weeks she has noticed a more rapid decline in her mother's cognitive function. She has also lost 9 pounds since the end of June and over this. May not have been adequately taking p.o. intake. If her mental status does not improve significantly or if she continues to not have a consistent way of getting p.o. intake, we may need to think about doing a PEG. Have discussed this with the patient and she would like to see how her mother responds over the next 24 to 48 hours and then go from there. Cr 1.3 from 1.6 appears to be at recent baseline since July 2019 IV ceftriaxone empirically while awaiting cx results Status: Acute (2) Acute UTI: iv ceftriaxone as above Status: Acute (3) Critical ischemia of lower extremity: Multilevel occlusion on CTA, unclear if representing acute or chronic ch anggarrett Lovenox 80mg q24h (renally dosed) Cardiology recommendations appreciated. Status: Acute (4) Critical limb ischemia with history of revascularization of same extremity: Continue antiplatelets and statins , however patient not able to swallow. If gets NG tube placement for correction of electrolyte abnormalities, can continue these medications via NGT. Lovenox as above, closely monitor Hb level Status: Acute (5) Alzheimer's dementia: Continue aricept and namenda Status: Acute Qualifiers: Alzheimer's disease onset: unspecified onset Dementia behavioral disturbance: without behavioral disturbance Qualified Code(s): G30.9 - Alzheimer's disease, unspecified; F02.80 - Dementia in other diseases classified elsewhere without behavioral disturbance (6) Hypernatremia: change IVF to D5 water at 100 cc an hour. Check sodium at 5 PM. TSH low at 0.2. Patient is not on any current medications. Will check free 3 T3 until 4 to a certain of central hypothyroidism may be contributing here. Status: Acute Additional A&P Information Hypertension: Hold lisinorpil given hyperkalemia and cr 1.6, patient appears clinically dehydrated . Ordered hydralazine 10mg iv q4h prn Reduce opiate dosing to 2mg iv q8h morphine DNR/DNI based on review of NH transfer records and discussion with daughter dvt ppx: lovenox Diet: npo except meds for now until mentation improved Attestations Medical Necessity Statement*: Needs ongoing IV hydration for correction of hypernatremia, evaluation for critical limb ischemia. Coding Level of Care Code Acute Rotoformer Backtender for Sai Powers Diagnoses Acute alteration in mental status R41.82 Acute UTI N39.0 Critical ischemia of lower extremity I99.8 Critical limb ischemia with history of revascularization of same extremity I99.8; Z95.9 Alzheimer's dementia G30.9; F02.80 Alzheimer's disease onset: unspecified onset Dementia behavioral disturbance: without behavioral disturbance Hypernatremia E87.0
--- NOTE | 2019-10-16 11:13 | PC.PHAR ---
Lovenox freq adjusted per renal dosing policy 80q24 to 80 q12. prev documentation stated renally dosed at q24h
[2019-10-16] MEDS: dextrose 5% 1,000 ML 100 ML IV ×2 (11:19→21:22)
[2019-10-16] MEDS: enoxaparin 80 mg/0.8 mL Syringe SUBCUT ×2 (11:32→23:33)
--- NOTE | 2019-10-16 11:35 | PC.NURSE ---
Patient tearful grabbing at left leg. Dr. Weir notified that patient's pain is not controlled. Physicial gave RBVO to administer [place] 5-325 mg q4 hours after speech eval.
[2019-10-16 11:36] LABS: Free T4 Free Thyroxine 1.57 ng/dL (0.82-1.77); T3 Free 3.6 PG/ML (2.0-4.4)
[2019-10-16] MEDS: cefTRIAXone 1,000 MG in sodium chloride 0.9% (plus) 50 ML 100 MG IV (13:14)
--- NOTE | 2019-10-16 14:00 | PC.NURSE ---
Dr. Lindo at bedside. Physician planning to take patient to seed analysis laboratory assistant tomorrow at 1000 if fence maker is 1.0 or less.
--- NOTE | 2019-10-16 14:43 | P.PN_ITS ---
Subjective Subjective: Interval history: Still appear to be confused, the left leg look warm complaining of pain, sensory and motor intact, creatinine has started improving Medications: Reviewed: Yes Vitals/I&O/Wt Last Vital Signs Temp 98.5 F 10/16/19 12:00 Pulse 88 10/16/19 12:00 Resp 21 H 10/16/19 12:00 BP 134/72 10/16/19 12:00 Pulse Ox 97 10/16/19 12:00 10/15/19 10/16/19 10/16/19 22:59 06:59 14:59 Intake Total 643.333 / 916.779 8162 / 4203.649 0783.667 / 1296.667 Output Total 775 / 775 800 / 1575 Balance -131.667 / -131.667 200 / 68.333 1296.667 / 1296.667 Weight last 48 hrs Weight 151 lb Weight 167 lb Physical Exam Narrative: EXAM NARRATIVE: GENERAL: Patient is confused NECK: No jugular vein distension. HEENT: No cyanosis. No icterus. No pallor. HEART: Regular S1 and S2. No murmur, rub or gallop. LUNGS: Clear to auscultate bilaterally. CENTRAL NERVOUS SYSTEM: Confused, patient has a underlying dementia motor and sensory positive EXTREMITIES: Lower extremities without edema bilaterally. No dorsalis pedis and posterior tibial in the left foot but it is warm moist and dusky Urinary Catheter Management^: Richardson: Cath Placed During This Visit: yes Reason for Continuing Indwelling Catheter: Acute Urinary Retention or Obstruction Urinary Catheter Date of Insertion: 10/15/19 Urinary Catheter Time of Insertion: 14:07 Data : 10/16/19 03:43 10/16/19 03:43 Micro: Microbiology 10/16/19 03:43 Blood Culture - Preliminary Blood SPECIMEN COLLECTED 10/16/19 03:43 Blood Culture - Preliminary Blood SPECIMEN COLLECTED A&P Assessment and plan (1) Critical limb ischemia with history of revascularization of same extremity: Currently stable, left leg and foot appear to be warm however she complaining of pain upon moving. As patient is being treated for acute renal failure sepsis we will continue to wait continue Lovenox once infection is cleared and creatinine is normalized we will proceed with peripheral angiogram Status: Acute (2) Hypertension: Stable continue meds Status: Acute Qualifiers: Hypertension type: essential hypertension Qualified Code(s): I10 - Esse ntial (primary) hypertension (3) Acute alteration in mental status: Continue IV hydration Status: Acute (4) Alzheimer's dementia: Patient has baseline Alzheimer's/dementia, she is confused most likely combination of dementia but UTI and dehydration. Continue treating with IV fluid Status: Acute Qualifiers: Alzheimer's disease onset: unspecified onset Dementia behavioral disturbance: without behavioral disturbance Qualified Code(s): G30.9 - Alzheimer's disease, unspecified; F02.80 - Dementia in other diseases classified elsewhere without behavioral disturbance (5) Acute renal failure (ARF): Most likely secondary to prerenal and dehydration. Hold lisinopril hold hydrochlorothiazide, continue IV fluid as per medicine 100 mL/h Status: Acute Attestations Medical Necessity Statement*: Patient require continuation hospitalization for above defined care. Coding Level of Care Code Established Pt Acute College Basketball Coach for Sai Powers Patient Type Established History Expanded Problem Focused Exam Expanded Problem Focused Medical Decision Making Moderate Complexity Diagnoses Critical limb ischemia with history of revascularization of same extremity I99.8; Z95.9 Hypertension I10 Hypertension type: essential hypertension Acute alteration in mental status R41.82 Alzheimer's dementia G30.9; F02.80 Alzheimer's disease onset: unspecified onset Dementia behavioral disturbance: without behavioral disturbance Acute renal failure (ARF) N17.9
--- NOTE | 2019-10-16 14:53 | W.PM.OPSUD ---
Surgery/Procedure H&P Update DATE OF PROCEDURE: October 16, 2019 DATE H&P PERFORMED: 10/16/19 H&P UPDATE INFORMATION: I have examined patient prior to procedure PREOP DIAGNOSIS: On a disease, angina PATIENT REASSESSED PRIOR TO SEDATION, WITH NO CHANGE NOTED: Yes PHYSICAL EXAM: alert, oriented x 3, clear to auscultation bilaterally and regular rate & rhythm AIRWAY EVAL/ANESTHESIA PLAN: normal airway, ASA II, Risks, benefits & alternatives of sedation and/or procedure discussed and Patient agrees to continue as planned
[2019-10-16] MEDS: HYDROcodone-acetaminophen 5-325 mg Tablet 1 TAB PO ×2 (17:37→21:43)
[2019-10-16 17:46] LABS: Sodium 146 mmol/L (136-145)
--- NOTE | 2019-10-16 19:05 | PC.NURSE ---
REPORT RECEIVED FROM OFF GOING NURSE. PT IS CONFUSED AND MUMBLES WORDS. PT IS PLEASANT AND IS ABLE TO BE REDIRECTED AT THIS TIME. WILL CONTINUE TO MONITOR.
[2019-10-17] VITALS (11 sets, daily range): BP systolic 124–168; BP diastolic 49–95; PULSE 79–92; RESP 10–25; TEMP 36.8–37; O2SAT 95–96
[2019-10-17] MEDS: HYDROcodone-acetaminophen 5-325 mg Tablet 1 TAB PO ×4 (01:48→22:41)
[2019-10-17 04:40] LABS: Basophils % 0.2 %; Eosinophils % 0.2 %; Hematocrit 31.9 % (37.0-47.0); Hemoglobin 9.3 g/dL (11.5-15.3); Lymphocytes # 2.2 10^3/uL (0.8-4.8); Lymphocytes % 46.6 %; Mean Corpuscular HGB Conc 29.2 g/dL (30.0-36.0); Mean Corpuscular Hemoglobin 27.6 pg (28.0-34.0); Mean Corpuscular Volume 94.7 fL (81-99); Mean Platelet Volume 9.9 fL (7.4-10.4); Monocytes # 0.4 10^3/uL (0.2-0.9); Monocytes % 8.7 %; Neutrophils # 2.1 10^3/uL (1.8-7.7); Neutrophils % 44.3 %; Nucleated Red Blood Cells % 0 %; Platelet Count 173 10^3/cmm (130-400); Red Blood Count 3.37 10^6/uL (4.1-5.3); Red Cell Distribution Width 13.2 % (12.1-15.1); White Blood Count 4.8 10^3/uL (4.0-10.0)
[2019-10-17 05:39] LABS: Alanine Aminotransferase < 5 U/L (0-33); Albumin Level 3.9 g/dL (3.5-5.2); Alkaline Phosphatase 80 IU/L (35-105); Aspartate Amino Transferase 15 U/L (0-32); Blood Urea Nitrogen 40 mg/dL (8-23); Calcium 9.5 mg/dL (8.5-10.5); Carbon Dioxide 29 mmol/L (22-29); Chloride 106 mmol/L (98-107); Glucose 111 mg/dL (65-115); Osmolality Calculated 292 mOsm/kg (285-295); Sodium 142 mmol/L (136-145); Total Bilirubin 0.3 mg/dL (0.15-1.2); Total Protein 6.9 g/dL (6.6-8.7)
[2019-10-17] MEDS: dextrose 5% 1,000 ML 100 ML IV (06:25)
--- NOTE | 2019-10-17 06:30 | PC.NURSE ---
PT FOR MOST OF THE NIGHT NEEDED REDIRECTION FROM PULLING AT HOLT AND IV CATHETERS. PT IS CONFUSED AND DID NOT SLEEP MUCH. PRN NORCO WAS GIVEN FOR PAIN. WILL GIVE REPORT TO OFF GOING SHIFT.
[2019-10-17] MEDS: morphine 4 mg/mL SDV 1 mL 2 MG IVP ×2 (07:20→15:59)
--- NOTE | 2019-10-17 07:30 | PC.NURSE ---
Bedside report / 1:1 sitter Pt noted to have facial grimacing, restless and holding her left leg. Pt is confused, not oriented to name, , time or day. Pt noted to be picking her IV, electrodes. Reoriented pt to name, , time and place. IV Morphine PRN order given and wasted with CHICA baron. Assessed neurovascular on left foot and right foot. Pls see nurse intervention. Will monitor.
--- NOTE | 2019-10-17 08:14 | PC.NURSE ---
Feeding Assistance HOB elevated at 45 degrees. Pt needs frequent redirection and verbal commands to help feed herself for breakfast. Assisted mostly to feed. No difficulty swallowing noted. Noted no difficulty drinking fluids. Pt is pleasant and follow commands from nurse. Noted talking to herself and watching frequently out the window. 0820- Pt started to use her arm to hold and drink her milk. Will monitor.
--- NOTE | 2019-10-17 08:25 | P.PN_ITS ---
Subjective Subjective: Interval history: Patient is confused and demented. Denies any chest pain or shortness of breath. As per the nurse who is taking care of the patient the redness in the left foot is better. She did not have any new complaints. The kidney function seems to be improving. Telemetry shows no significant arrhythmias. Medications: Reviewed: Yes Medication Review Details: Current Medications Acetaminophen (Tylenol) 650 mg PO Q6H PRN PRN Reason: Mild/Mod Pain Or Temp >/= 101 Hydrocodone Bitart/Acetaminophen ([place] 5-325 Mg) 1 tab PO Q4H PRN PRN Reason: MODERATE PAIN Last Admin: 10/17/19 01:48 Dose: 1 tab Documented by: Atorvastatin Calcium (Lipitor) 40 mg PO DAILY [facility] [place] Last Admin: 10/16/19 09:35 Dose: Not Given Documented by: Bisacodyl (Bisac-Evac) 10 mg MT DAILY PRN PRN Reason: Constipation Clopidogrel Bisulfate (Plavix) 75 mg PO DAILY [facility] Last Admin: 10/16/19 09:35 Dose: Not Given Documented by: Donepezil HCl (Aricept) 5 mg PO DAILY [facility] [place] Last Admin: 10/16/19 09:35 Dose: Not Given Documented by: Enoxaparin Sodium (Lovenox) 80 mg SUBCUT Q12H [facility] [place] Last Admin: 10/16/19 23:33 Dose: 80 mg Documented by: Hydralazine HCl (Apresoline) 10 mg IVP Q4H PRN PRN Reason: SBP>170 Hydrochlorothiazide (Hctz) 12.5 mg PO DAILY [facility] [place] [place] Last Admin: 10/16/19 09:35 Dose: Not Given Documented by: Ceftriaxone Sodium 1,000 mg/ (Sodium Chloride) 50 mls @ 100 mls/hr IV Q24H [facility] [place]; Protocol Last Infusion: 10/16/19 13:44 Dose: Infused Documented by: Dextrose (D5w) 1,000 mls @ 100 mls/hr IV .Q10H [facility] [place] Last Admin: 10/17/19 06:25 Dose: 100 mls/hr Documented by: Magnesium Hydroxide (Milk Of Magnesia) 30 ml PO DAILY PRN PRN Reason: Constipation Memantine (Namenda) 10 mg PO BID [facility] [place] Last Admin: 10/16/19 09:35 Dose: Not Given Documented by: Morphine Sulfate (Morphine) 2 mg IVP Q8H PRN PRN Reason: SEVERE PAIN Last Admin: 10/17/19 07:20 Dose: 2 mg Documented by: Naloxone HCl (Narcan) 0.1 mg IVP Q2M PRN PRN Reason: OPIATERV Nitroglycerin (Nitro-Dur 0.4 Mg Patch) 1 patch TRANSDERMA Q24H [facility] [place] Last Admin: 10/16/19 20:04 Dose: Not Given Documented by: Ondansetron HCl (Zofran) 4 mg IVP Q6H PRN PRN Reason: NAUSEA AND VOMITING Pantoprazole Sodium (Protonix) 40 mg PO DAILY [facility] [place] Last Admin: 10/16/19 09:35 Dose: Not Given Documented by: Venlafaxine HCl (Effexor) 37.5 mg PO BID [facility] Last Admin: 10/16/19 09:35 Dose: Not Given Documented by: Vitals/I&O/Wt Last Vital Signs Temp 98.6 F 10/17/19 07:34 Pulse 90 10/17/19 07:52 Resp 18 10/17/19 07:34 BP 168/95 10/17/19 07:34 Pulse Ox 95 10/17/19 03:37 10/16/19 10/17/19 10/17/19 22:59 06:59 14:59 Intake Total 793.333 / 2090.000 935 / 3025.000 Output Total 925 / 925 500 / 1425 Balance -131.667 / 1165.000 435 / 1600.000 Weight last 48 hrs Weight 153 lb 12.8 oz Weight 151 lb Weight 167 lb Physical Exam Narrative: EXAM NARRATIVE: GENERAL: The patient is alert and calm HEENT: No significant pallor, icterus or lymphadenopathy.Oral cavity: There are no mucous membrane lesions. NECK: Trachea appears to be central. No masses noted. No JVD or thyromegaly appreciated. RESPIRATORY: Chest is symmetrical. No intercostals muscle retraction or any accessory muscle activation. There is no chest wall tenderness. Breath sounds are heard bilaterally. No rales or rhonchi heard. No evidence of any consolidation. BREASTS: Deferred. HEART: The heart sounds are normal. No S3 or S4. Short systolic murmur at the left sternal border. No diastolic murmurs. ABDOMEN: No vessel pulsations or distention. No tenderness. No organomegaly appreciated. Bowel sounds are normally heard. : Deferred. RECTAL: Deferred. LYMPHATIC: No lymphadenopathy noted in the neck . EXTREMITIES: 1+ edema bilaterally in the lower extremities. The left toes are pinkish. No ulcerations noted MUSCULOSKELETAL: No acute joint deformities or swelling SKIN: There are no significant rashes. NEUROPSYCHIATRIC: The patient is alert. No focal motor deficits. Urinary Catheter Management^: Richardson: Cath Placed During This Visit: yes Reason for Continuing Indwelling Catheter: Acute Urinary Retention or Obstruction Urinary Catheter Date of Insertion: 10/15/19 Urinary Catheter Time of Insertion: 14:07 Data : 10/17/19 03:58 10/17/19 03:58 Micro: Microbiology 10/16/19 03:43 Blood Culture - Preliminary Blood NEGATIVE TO DATE 10/16/19 03:43 Blood Culture - Preliminary Blood NEGATIVE TO DATE Laboratory Last Values WBC 4.8 10^3/uL (4.0-10.0) 10/17/19 03:58 RBC 3.37 10^6/uL (4.1-5.3) L 10/17/19 03:58 Hgb 9.3 g/dL (11.5-15.3) L 10/17/19 03:58 Hct 31.9 % (37.0-47.0) L 10/17/19 03:58 MCV 94.7 fL (81-99) 10/17/19 03:58 MCH 27.6 pg (28.0-34.0) L 10/17/19 03:58 MCHC 29.2 g/dL (30.0-36.0) L 10/17/19 03:58 RDW 13.2 % (12.1-15.1) 10/17/19 03:58 Plt Count 173 10^3/cmm (130-400) 10/17/19 03:58 MPV 9.9 fL (7.4-10.4) 10/17/19 03:58 Neut % (Auto) 44.3 % 10/17/19 03:58 Lymph % (Auto) 46.6 % 10/17/19 03:58 [place] % (Auto) 8.7 % 10/17/19 03:58 Eos % (Auto) 0.2 % 10/17/19 03:58 Baso % (Auto) 0.2 % 10/17/19 03:58 Neut # (Auto) 2.1 10^3/uL (1.8-7.7) 10/17/19 03:58 Lymph # (Auto) 2.2 10^3/uL (0.8-4.8) 10/17/19 03:58 [place] # (Auto) 0.4 10^3/uL (0.2-0.9) 10/17/19 03:58 Eos # (Auto) 0.0 10^3/uL (0.0-0.8) 10/17/19 03:58 Baso # (Auto) 0.0 10^3/uL (0.0-0.1) 10/17/19 03:58 Nucleated RBC % (auto) 0 % 10/17/19 03:58 Nucleated RBCs # 0.0 /100WBC 10/17/19 03:58 PT 12.80 SECONDS (10.5-13.3) 10/15/19 11:40 INR 0.93 (0.8-1.2) 10/15/19 11:40 APTT 23.0 SECONDS (23.9-36.7) L 10/15/19 11:40 Sodium 142 mmol/L (136-145) 10/17/19 03:58 Potassium 4.0 mmol/L (3.5-5.1) 10/17/19 03:58 Chloride 106 mmol/L (98-107) 10/17/19 03:58 Carbon Dioxide 29 mmol/L (22-29) 10/17/19 03:58 Anion Gap 11.0 (5-19) 10/17/19 03:58 BUN 40 mg/dL (8-23) H 10/17/19 03:58 Creatinine 1.1 mg/dL (0.5-0.9) H 10/17/19 03:58 Glucose 111 mg/dL (65-115) 10/17/19 03:58 POC Glucose 94 mg/dL (70-110) 10/15/19 17:45 Calculated Osmolality 292 mOsm/kg (285-295) 10/17/19 03:58 Lactic Acid 1.1 mmol/L (0.5-2.2) 10/15/19 11:40 Calcium 9.5 mg/dL (8.5-10.5) 10/17/19 03:58 Magnesium 2.9 mg/dL (1.7-2.3) H 10/15/19 11:40 Total Bilirubin 0.3 mg/dL (0.15-1.2) 10/17/19 03:58 AST 15 U/L (0-32) 10/17/19 03:58 ALT < 5 U/L (0-33) 10/17/19 03:58 Alkaline Phosphatase 80 IU/L (35-105) 10/17/19 03:58 Creatine Kinase 43 U/L (26-192) 10/15/19 13:55 Troponin I 6 Hour 56.85 ng/L (0-10) H 10/15/19 18:19 Troponin I Hi Sens Del 2.85 ng/L (0-12) 10/15/19 18:19 Troponin T Baseline 54 ng/L (0-10) H 10/15/19 11:40 Troponin T 120 Minute 50.98 ng/L (0-10) H 10/15/19 13:55 Delta Troponin T -3.02 ABS# (0-10) L 10/15/19 13:55 Total Protein 6.9 g/dL (6.6-8.7) 10/17/19 03:58 Albumin 3.9 g/dL (3.5-5.2) 10/17/19 03:58 Globulin 3.0 g/dL (1.3-4.6) 10/17/19 03:58 TSH 0.02 uIU/mL (0.27-4.20) L 10/16/19 03:43 Free T4 1.57 ng/dL (0.82-1.77) 10/16/19 03:43 Free T3 3.6 PG/ML (2.0-4.4) 10/16/19 03:43 Urine Color Yellow (Yellow) 10/15/19 13:40 Urine Appearance Hazy (CLEAR) A 10/15/19 13:40 Urine pH 5 (5-7) 10/15/19 13:40 Ur Specific [place] 1.005 (1.005-1.030) 10/15/19 13:40 Urine Protein Neg (Negative) 10/15/19 13:40 Urine Glucose (UA) 1+ (Normal) 10/15/19 13:40 Urine Ketones Negative (Negative) 10/15/19 13:40 Urine Blood Neg (Negative) 10/15/19 13:40 Urine Nitrate Positive (Negative) H 10/15/19 13:40 Urine Bilirubin Neg (NEGATIVE) 10/15/19 13:40 Urine Urobilinogen Norm mg/dL (Negative) 10/15/19 13:40 Ur Leukocyte Esterase 1+ (Negative) H 10/15/19 13:40 Urine RBC None /hpf (0-2) 10/15/19 13:40 Urine WBC 40-55 /hpf (0-5) H 10/15/19 13:40 Ur Squamous Epith Cells None (0-5) 10/15/19 13:40 Urine Bacteria 4+ (NONE) H 10/15/19 13:40 A&P Assessment and plan (1) Critical limb ischemia with history of revascularization of same extremity: Patient seems to have no new symptoms. Because of her dementia, it may be difficult to evaluate her symptoms. She has no fever or chills. Status: Acute (2) Acute renal failure (ARF): The BUNs/creatinine seems to be improving well. I will be discussing with , regarding the peripheral angiogram and possible intervention Status: Acute Qualifiers: Acute renal failure type: unspecified Qualified Code(s): N17.9 - Acute kidney failure, unspecified (3) Acute alteration in mental status: Seems to be stable with no changes Status: Acute (4) Acute UTI: Patient has no fever. Normal white cell count. Hemoglobin is low but stable. Status: Acute (5) CVA (cerebral vascular accident): Patient has no recurrence of CVA. Will continue on the current measures. Status: Acute Qualifiers: CVA mechanism: other Qualified Code(s): I63.89 - Other cerebral infarction (6) Hypertension: Currently normotensive. We will continue on the current medications. Status: Acute Qualifiers: Hypertension type: essential hypertension Qualified Code(s): I10 - Essential (primary) hypertension Additional A&P Information I discussed with Dr. Lindo. It was decided to go ahead and schedule for the peripheral angiogram tomorrow around 10 AM with the anesthesia backup. We will keep her n.p.o. after midnight Attestations Medical Necessity Statement*: Patient requires continued hospital stay for close monitoring and further management Coding Level of Care Code Acute Investor Relations Specialist for Chg Fwd Diagnoses Critical limb ischemia with history of revascularization of same extremity I99.8; Z95.9 Acute renal failure (ARF) N17.9 Acute renal failure type: unspecified Acute alteration in mental status R41.82 Acute UTI N39.0 CVA (cerebral vascular accident) I63.89 CVA mechanism: other Hypertension I10 Hypertension type: essential hypertension
[2019-10-17] MEDS: hyDRALAzine 20 mg/mL INJ 1 mL 10 MG IVP (08:43)
[2019-10-17] MEDS: venlafaxine 75 mg Tablet 37.5 MG PO ×2 (09:22→17:19)
[2019-10-17] MEDS: clopidogrel 75 mg Tablet PO (09:22)
[2019-10-17] MEDS: atorvastatin 40 mg Tablet PO (09:22)
[2019-10-17] MEDS: donepezil 5 MG Tablet PO (09:22)
[2019-10-17] MEDS: memantine 5 mg tablet 10 MG PO ×2 (09:22→17:19)
[2019-10-17] MEDS: pantoprazole DR 40 mg Tablet PO (09:22)
--- NOTE | 2019-10-17 10:22 | PC.NURSE ---
Fluids Maintenance Dr in room, updated pt's intake status, Dextrose 5 % IVF running at 100 mls/hr and arterial ulcer noted on left heel. Received verbal orders to decrease dextrose to 30 mls/hr. Initiate ensure supplement with meals and apply optifoam dressing and heel protector to feet. IVF fluid just decrease to 30 mls/ hr as ordered. Did not change a new bag since pt still have 560 ml left in the bag.
[2019-10-17] MEDS: dextrose 5% 1,000 ML 30 ML IV (10:45)
--- NOTE | 2019-10-17 11:09 | PC.NURSE ---
wound care wound cleanse with saline flush. wiped it dry, then Optifoam dressing applied to left heel ulcer. Egg crate heel protectors applied to help float heels.
[2019-10-17] MEDS: enoxaparin 80 mg/0.8 mL Syringe SUBCUT ×2 (11:35→23:58)
--- NOTE | 2019-10-17 11:47 | PM.PN ---
Subjective Subjective: Interval history: Significantly improved mentation today. Patient is alert. Says few simple sentences though not necessarily in context but maintains eye contact and attempts to have a conversation. She is able to swallow and drinking water and pudding today. Her sodium is corrected now to 142. Renal functions improved to 1.1. Medications: Reviewed: Yes Vitals/I&O/Wt Last Vital Signs Temp 98.3 F 10/17/19 11:26 Pulse 90 10/17/19 11:26 Resp 19 H 10/17/19 11:44 BP 124/49 10/17/19 11:26 Pulse Ox 95 10/17/19 03:37 10/16/19 10/17/19 10/17/19 22:59 06:59 14:59 Intake Total 793.333 / 2090.000 935 / 3025.000 667.667 / 667.667 Output Total 925 / 925 500 / 1425 Balance -131.667 / 1165.000 435 / 1600.000 667.667 / 667.667 Weight last 48 hrs Weight 69.763 kg Weight 68.492 kg Physical Exam Narrative: EXAM NARRATIVE: GEN: Awake, alert, no acute distress. Attempts to get out of bed. CVS: S1S2 N RS: CTA B/L Abd: Soft, nt/nd , bs+ CUSTOMER RESOLUTION SPECIALIST: no focal neuro deficits Extremities: Improved appearance of left foot, now appears to have better color without any signs of impending gangrene. Urinary Catheter Management^: Richardson: Cath Placed During This Visit: yes Reason for Continuing Indwelling Catheter: Acute Urinary Retention or Obstruction Urinary Catheter Date of Insertion: 10/15/19 Urinary Catheter Time of Insertion: 14:07 Data : 10/17/19 03:58 10/17/19 03:58 Micro: Microbiology 10/15/19 13:40 Urine Culture - Preliminary Urine,Clean Catch Gram Negative Rods 10/16/19 03:43 Blood Culture - Preliminary Blood NEGATIVE TO DATE 10/16/19 03:43 Blood Culture - Preliminary Blood NEGATIVE TO DATE A&P Assessment and plan (1) Acute alteration in mental status: Related to metabolic encephalopathy from UTI vs hypernatremia and dehydration Mental status is significantly improved today. This appears to be close to patient's baseline. She is now able to swallow, looks alert and awake, better hydrated and attempts to converse, though short sentences which are out of context. + UA, urine cx with GNR awaiting identification, blood cx negative to date Continue d5W, change rate to 30cc/hr, eventually discontinue when consistently taking po intake. eating 25% of meals this morning. Discussed extensively with daughter. She states that at a baseline patient is not nonverbal. Is not really a able to converse except to speak a few sentences intermittently. She does not recognize the daughter however she is able to eat or drink with much encouragement and able to swallow. Over the past 3 to 4 weeks she has noticed a more rapid decline in her mother's cognitive function. She has also lost 9 pounds since the end of June and over this. May not have been adequately taking p.o. intake. IV ceftriaxone empirically while awaiting cx results Status: Acute (2) Acute UTI: iv ceftriaxone as above Status: Acute (3) Critical ischemia of lower extremity: Multilevel occlusion on CTA, unclear if representing acute or chronic changes Lovenox 80mg q12h now that renal function improved Cardiology recommendations appreciated. Status: Acute (4) Critical limb ischemia with history of revascularization of same extremity: Continue antiplatelets and statins , however patient not able to swallow. If gets NG tube placement for correction of electrolyte abnormalities, can continue these medications via NGT. Lovenox as above, closely monitor Hb level Status: Acute (5) Alzheimer's dementia: Continue aricept and namenda Status: Acute Qualifiers: Alzheimer's disease onset: unspecified onset Dementia behavioral disturbance: without behavioral disturbance Qualified Code(s): G30.9 - Alzheimer's disease, unspecified; F02.80 - Dementia in other diseases classified elsewhere without behavioral disturbance (6) Hypernatremia: change IVF to D5 water to 30cc/hr TSH low at 0.2. Free t3 and t4 within range. Status: Acute (7) Ischemic heel ulcer: Optifoam dressing and pressure boots Status: Acute Additional A&P Information Hypertension: Hold lisinorpil given hyperkalemia and cr 1.6 . Started amlodipine. HCTZ held due to possible angiogram Reduce opiate dosing to 2mg iv q8h morphine DNR/DNI based on review of NH transfer records and discussion with daughter dvt ppx: lovenox Diet: soft mechanical, add ensure Attestations Medical Necessity Statement*: improving mentation, UTI, assessing for angiogram peripheral Coding Level of Care Code Acute Cross Cut Saw Operator for g Fwd Diagnoses Acute alteration in mental status R41.82 Acute UTI N39.0 Critical ischemia of lower extremity I99.8 Critical limb ischemia with history of revascularization of same extremity I99.8; Z95.9 Alzheimer's dementia G30.9; F02.80 Alzheimer's disease onset: unspecified onset Dementia behavioral disturbance: without behavioral disturbance Hypernatremia E87.0 Ischemic heel ulcer L97.409
--- NOTE | 2019-10-17 13:30 | PC.NURSE ---
supervisor mold cleaning and storage CHICA Wilcox notified for peripheral angiogram requested schedue tomorrow at 10 am with Anesthesia consult per Doctor order.
[2019-10-17] MEDS: cefTRIAXone 1,000 MG in sodium chloride 0.9% (plus) 50 ML 100 MG IV (13:59)
--- NOTE | 2019-10-17 14:00 | PC.NURSE ---
Assisted pt to transfer to sit in a chair with 1 assist Pt is alert, restless in bed and keep trying to sit up. Assisted pt to transfer to chair. She fairly pivot well with 1 assist from the bed to the chair. offered water drink. Judah keep monitoring.
--- NOTE | 2019-10-17 14:06 | PC.NURSE ---
Pt sitting on the edge of the bed Folding blankets. Redirected multiple times.
--- NOTE | 2019-10-17 14:14 | PC.NURSE ---
SpO2 on left great toe reads 96%-97%. normal SpO2 waveform.
--- NOTE | 2019-10-17 15:13 | PC.NURSE ---
Dr Lindo in room Doctor rounded on the pt. Updated him regarding her mentation and ongoing confusion, trying to get out of bed and even in her chair right now. Frequent redirection required. Pt is folding her blankets while sitting in her chair. Discussion with doctor is to keep the requested scheduled Peripheral Angiogram tomorrow and he will re-assess again in the morning. Informed him regarding Lovenox 80 mg q12Hr. He verbal order to give the Lovenox shot around 10 pm. Will inform oncoming night nurse padmini.
--- NOTE | 2019-10-17 16:20 | PC.NURSE ---
Informed consent Informed dgtr Ld on pt's schedule Peripheral Angiogram tomorrow at 10 am with performing physician Dr[address] Lindo. Dgtr understands the risks and benefits of the procedure. Verified with CHICA Castro via Telephone on dgtr's consent to proceed with the procedure. Dgtr stated she is aware of her mother's DNR status.
--- NOTE | 2019-10-17 19:14 | PC.NURSE ---
DR GALE WAS IN PT ROOM AT CHANGE OF SHIFT. DR GALE PLANS ON CATH TOMORROW AT 1000. DR SAID NPO AFTER 0100. PT APPEARS FOR BE IN PAIN. RN ON PREVIOUS SHIFT JUST GAVE NORCO 5/325MG. PT IS STILL GRIMACING. PULSES WERE DOPPABLE IN LEFT FOOT (PEDAL AND TIBIAL). PT IS PULLING AT WIRES AND HOLT AND IV CATHETERS. WILL CONTINUE TO MONITOR.
[2019-10-17] MEDS: trazodone 50 mg Tablet 25 MG PO ×2 (22:51→23:57)
--- NOTE | 2019-10-17 23:08 | PC.NURSE ---
PT APPEARED TO BE IN PAIN. PRN NORCO 5/325MG WAS GIVEN. PT IS STILL PULLING AT IV AND HOLT. WILL CONTINUE TO MONITOR.
--- NOTE | 2019-10-17 23:59 | PC.NURSE ---
TRAZODONE WAS GIVEN ON TIME. WHEN GIVING LOVENOX I REALIZED THAT THE COMPUTER DIDN'T SAVE IT.
[2019-10-18] VITALS (86 sets, daily range): BP systolic 109–197; BP diastolic 57–129; PULSE 64–123; RESP 12–30; TEMP 36.6–36.9; O2SAT 95–100
[2019-10-18] MEDS: morphine 4 mg/mL SDV 1 mL 2 MG IVP ×2 (02:08→20:30)
[2019-10-18 04:48] LABS: Basophils % 0.2 %; Eosinophils % 0.2 %; Hematocrit 31.6 % (37.0-47.0); Hemoglobin 9.5 g/dL (11.5-15.3); Lymphocytes % 41.5 %; Mean Corpuscular HGB Conc 30.1 g/dL (30.0-36.0); Mean Corpuscular Hemoglobin 27.6 pg (28.0-34.0); Mean Corpuscular Volume 91.9 fL (81-99); Mean Platelet Volume 9.5 fL (7.4-10.4); Monocytes # 0.4 10^3/uL (0.2-0.9); Monocytes % 8.1 %; Neutrophils # 2.4 10^3/uL (1.8-7.7); Neutrophils % 49.8 %; Nucleated Red Blood Cells % 0 %; Platelet Count 171 10^3/cmm (130-400); Red Blood Count 3.44 10^6/uL (4.1-5.3); Red Cell Distribution Width 12.9 % (12.1-15.1); White Blood Count 4.9 10^3/uL (4.0-10.0)
[2019-10-18 05:10] LABS: Alanine Aminotransferase 16 U/L (0-33); Albumin Level 3.3 g/dL (3.5-5.2); Alkaline Phosphatase 78 IU/L (35-105); Anion Gap 14.8 (5-19); Aspartate Amino Transferase 24 U/L (0-32); Blood Urea Nitrogen 22 mg/dL (8-23); Calcium 9.4 mg/dL (8.5-10.5); Carbon Dioxide 24 mmol/L (22-29); Chloride 103 mmol/L (98-107); Globulin 3.4 g/dL (1.3-4.6); Glucose 110 mg/dL (65-115); Osmolality Calculated 283 mOsm/kg (285-295); Potassium 3.8 mmol/L (3.5-5.1); Sodium 138 mmol/L (136-145); Total Bilirubin 0.2 mg/dL (0.15-1.2); Total Protein 6.7 g/dL (6.6-8.7)
[2019-10-18] MEDS: dextrose 5% 1,000 ML 30 ML IV (05:54)
--- NOTE | 2019-10-18 05:55 | PC.NURSE ---
IV FLUIDS WERE CHANGED D/T BEING EMPTY AND THE BAG BEING HUNG ALMOST 24 HOURS.
--- NOTE | 2019-10-18 05:59 | PC.NURSE ---
PT INTERMITTENTLY SLEPT DURING THE NIGHT. PT PULLED AT HOLT AND IV CATHETER WELL TELEMETRY WIRE. PT IS CONFUSED. PT WAS GIVEN PRN HYDRO AND MORPHINE DURING THE NIGHT FOR PAIN. LEFT HEEL ELEVATED. PULSES ARE STILL DOPPABLE IN THE LEFT FOOT. WILL GIVE REPORT TO ONCOMING SHIFT.
--- NOTE | 2019-10-18 09:00 | PC.SOCIAL ---
Pg 2 IMM Explained to pt Pg 2 IMM. No questions voiced. Provided pt a copy & left on pt's bedside table. Signed, dated, & timed a copy & placed in pt's chart.
[2019-10-18] MEDS: venlafaxine 75 mg Tablet 37.5 MG PO ×2 (09:08→17:34)
[2019-10-18] MEDS: memantine 5 mg tablet 10 MG PO ×2 (09:08→17:34)
[2019-10-18] MEDS: donepezil 5 MG Tablet PO (09:08)
[2019-10-18] MEDS: atorvastatin 40 mg Tablet PO (09:08)
[2019-10-18] MEDS: amlodipine 10 mg Tablet PO (09:09)
[2019-10-18] MEDS: diphenhydrAMINE 50 mg Capsule PO (09:09)
[2019-10-18] MEDS: pantoprazole DR 40 mg Tablet PO (09:09)
[2019-10-18] MEDS: clopidogrel 75 mg Tablet PO (09:09)
--- NOTE | 2019-10-18 09:38 | PC.NURSE ---
pt does not have any dentures called gurjit fraire and she verified that pt does not have any dentures. the pt still has her original teeth.
--- NOTE | 2019-10-18 09:53 | P.ANESASSM_ITS ---
Pre-Anesthetic Assessment Pre-Anesthetic Assessment: Height/Weight: Height 1.68 m Weight 69.763 kg Temp Pulse Resp BP Pulse Ox 98.1 F 98 18 167/92 95 10/18/19 08:00 10/18/19 08:00 10/18/19 08:00 10/18/19 08:00 10/18/19 08:00 Preop Diagnosis: On a disease, angina Proposed Procedure: Operation Date: 10/18/19 10:00 Proposed Procedures p Peripheral Intervention(Left) - Zulema Lindo MD Social: Social History: Tobacco (quit 02/2019) and No alcohol Exam: Pre-Anes Outpt Exam: clear to auscultation bilaterally and regular rate & rhythm Additional Exam Findings (including area of procedure): non communicative, but alert to voice Airway: Dentition: Other (poor dentation, not able to eval due to pt mental status) History/ROS: No significant history except as noted Pulmonary: Pulmonary: COPD CV/HEM: CV/HEM: Anemia, DVT, HTN and PVD : : Chronic renal Insufficiency Hepatic: Hepatic: None reported GI: GI: GERD Metabolic: Metabolic: Hyperlipidemia Musc/skel: Musc/skel: Weakness (lower ext) Neuropsych: Neuropsych: CVA (non verbal, dysphagea ) and Dementia Anesthetic Plan: ASA status: 4E Anesthesia: Anesthesia Evaluation and General Risk of > 500 ml blood loss (7ml/kg in children): No Meds/Allergies Current Medications: Current Medications Generic Name Dose Route Start Last Admin Trade Name Freq PRN Reason Stop Dose Admin Hydrocodone Bitart /Acetaminophen 1 tab 10/16/19 11:37 10/17/19 22:41 Filley 5-325 Mg PO 1 tab Q4H PRN Administration MODERATE PAIN Amlodipine Besylat e 10 mg 10/18/19 09:00 10/18/19 09:09 Norvasc PO 10 mg DAILY LEANN Administration Atorvastatin Calci um 40 mg 10/16/19 09:00 10/18/19 09:08 Lipitor PO 40 mg DAILY LEANN Administration Clopidogrel Bisulf ate 75 mg 10/16/19 09:00 10/18/19 09:09 Plavix PO 75 mg DAILY LEANN Administration Donepezil HCl 5 mg 10/16/19 09:00 10/18/19 09:08 Aricept PO 5 mg DAILY LEANN Administration Enoxaparin Sodium 80 mg 10/16/19 12:00 10/17/19 23:58 Lovenox SUBCUT 80 mg Q12H LEANN Administration Hydralazine HCl 10 mg 10/15/19 22:44 10/17/19 08:43 Apresoline IVP 10 mg Q4H PRN Administration SBP>170 Ceftriaxone Sodium 1,000 mg/ 50 mls @ 100 mls/ hr 10/16/19 14:00 10/17/19 13:59 Sodium Chloride IV 100 mls/hr Q24H LEANN Administration Protocol Dextrose 1,000 mls @ 30 ml s/hr 10/17/19 10:45 10/18/19 05:54 D5w IV 30 mls/hr .Q24H LEANN Administration Memantine 10 mg 10/16/19 09:00 10/18/19 09:08 Namenda PO 10 mg BID LEANN Administration Morphine Sulfate 2 mg 10/15/19 22:45 10/18/19 02:08 Morphine IVP 2 mg Q8H PRN Administration SEVERE PAIN Nitroglycerin 1 patch 10/15/19 20:15 10/17/19 19:19 Nitro-Dur 0.4 Mg Patch TRANSDERMA Not Given Q24H [facility] Pantoprazole Sodiu m 40 mg 10/16/19 09:00 10/18/19 09:09 Protonix PO 40 mg DAILY [facility] Administration Venlafaxine HCl 37.5 mg 10/16/19 09:00 10/18/19 09:08 Effexor PO 37.5 mg BID LEANN Administration Additional Medication Information: Current Medications Acetaminophen (Tylenol) 650 mg PO Q6H PRN PRN Reason: Mild/Mod Pain Or Temp >/= 101 Hydrocodone Bitart/Acetaminophen (Filley 5-325 Mg) 1 tab PO Q4H PRN PRN Reason: MODERATE PAIN Last Admin: 10/17/19 01:48 Dose: 1 tab Documented by: Atorvastatin Calcium (Lipitor) 40 mg PO DAILY [facility] Last Admin: 10/16/19 09:35 Dose: Not Given Documented by: Bisacodyl (Bisac-Evac) 10 mg SC DAILY PRN PRN Reason: Constipation Clopidogrel Bisulfate (Plavix) 75 mg PO DAILY [facility] Last Admin: 10/16/19 09:35 Dose: Not Given Documented by: Donepezil HCl (Aricept) 5 mg PO DAILY [facility] Last Admin: 10/16/19 09:35 Dose: Not Given Documented by: Enoxaparin Sodium (Lovenox) 80 mg SUBCUT Q12H [facility] Last Admin: 10/16/19 23:33 Dose: 80 mg Documented by: Hydralazine HCl (Apresoline) 10 mg IVP Q4H PRN PRN Reason: SBP>170 Hydrochlorothiazide (Hctz) 12.5 mg PO DAILY [facility] Last Admin: 10/16/19 09:35 Dose: Not Given Documented by: Ceftriaxone Sodium 1,000 mg/ (Sodium Chloride) 50 mls @ 100 mls/hr IV Q24H [facility]; Protocol Last Infusion: 10/16/19 13:44 Dose: Infused Documented by: Dextrose (D5w) 1,000 mls @ 100 mls/hr IV .Q10H [facility] Last Admin: 10/17/19 06:25 Dose: 100 mls/hr Documented by: Magnesium Hydroxide (Milk Of Magnesia) 30 ml PO DAILY PRN PRN Reason: Constipation Memantine (Namenda) 10 mg PO BID [facility] Last Admin: 10/16/19 09:35 Dose: Not Given Documented by: Morphine Sulfate (Morphine) 2 mg IVP Q8H PRN PRN Reason: SEVERE PAIN Last Admin: 10/17/19 07:20 Dose: 2 mg Documented by: Naloxone HCl (Narcan) 0.1 mg IVP Q2M PRN PRN Reason: OPIATERV Nitroglycerin (Nitro-Dur 0.4 Mg Patch) 1 patch TRANSDERMA Q24H [facility] Last Admin: 10/16/19 20:04 Dose: Not Given Documented by: Ondansetron HCl (Zofran) 4 mg IVP Q6H PRN PRN Reason: NAUSEA AND VOMITING Pantoprazole Sodium (Protonix) 40 mg PO DAILY [facility] Last Admin: 10/16/19 09:35 Dose: Not Given Documented by: Venlafaxine HCl (Effexor) 37.5 mg PO BID [facility] Last Admin: 10/16/19 09:35 Dose: Not Given Documented by: PFSH Anesthesia PFS: Medical History Alzheimer's dementia Anemia COPD (chronic obstructive pulmonary disease) CVA (cerebral vascular accident) Depression DVT (deep venous thrombosis) Hyperlipidemia Hypertension Peripheral vascular disease Tobacco abuse, in remission Surgical History History of dilatation and curettage Family History Denies family history of CAD (coronary artery disease) Stroke Social History Smoking and tobacco status: former smoker Quit status (tobacco): has quit using tobacco Year quit tobacco: February 2019 Alcohol intake: never Housing: Shelter Data Anesthesia CBC & Chem 7: 10/18/19 04:27 10/18/19 04:27 Other Labs: Laboratory Results - last 48 hr 10/16/19 10/16/19 10/17/19 03:43 17:20 03:58 WBC 4.8 RBC 3.37 L Hgb 9.3 L Hct 31.9 L MCV 94.7 MCH 27.6 L MCHC 29.2 L RDW 13.2 Plt Count 173 MPV 9.9 Neut % (Auto) 44.3 Lymph % (Auto) 46.6 [place] % (Auto) 8.7 Eos % (Auto) 0.2 Baso % (Auto) 0.2 Neut # (Auto) 2.1 Lymph # (Auto) 2.2 [place] # (Auto) 0.4 Eos # (Auto) 0.0 Baso # (Auto) 0.0 Nucleated RBC % (auto) 0 Nucleated RBCs # 0.0 Sodium 146 H Potassium Chloride Carbon Dioxide Anion Gap BUN Creatinine Glucose Calculated Osmolality Calcium Total Bilirubin AST ALT Alkaline Phosphatase Total Protein Albumin Globulin Free T4 1.57 Free T3 3.6 10/17/19 10/18/19 10/18/19 03:58 04:27 04:27 WBC 4.9 RBC 3.44 L Hgb 9.5 L Hct 31.6 L MCV 91.9 MCH 27.6 L MCHC 30.1 RDW 12.9 Plt Count 171 MPV 9.5 Neut % (Auto) 49.8 Lymph % (Auto) 41.5 [place] % (Auto) 8.1 Eos % (Auto) 0.2 Baso % (Auto) 0.2 Neut # (Auto) 2.4 Lymph # (Auto) 2.0 [place] # (Auto) 0.4 Eos # (Auto) 0.0 Baso # (Auto) 0.0 Nucleated RBC % (auto) 0 Nucleated RBCs # 0.0 Sodium 142 138 Potassium 4.0 3.8 Chloride 106 103 Carbon Dioxide 29 24 Anion Gap 11.0 14.8 BUN 40 H 22 Creatinine 1.1 H 0.9 Glucose 111 110 Calculated Osmolality 292 283 L Calcium 9.5 9.4 Total Bilirubin 0.3 0.2 AST 15 24 ALT < 5 16 Alkaline Phosphatase 80 78 Total Protein 6.9 6.7 Albumin 3.9 3.3 L Globulin 3.0 3.4 Free T4 Free T3 Micro: Microbiology 10/15/19 13:40 Urine Culture - Preliminary Urine,Clean Catch Gram Negative Rods Cardiac Studies: No Data to Display
--- NOTE | 2019-10-18 10:00 | XACV_ITS ---
Ht: 168 cm Wt: 69 kg BSA: 1.81 m2 Any Known Allergies: No known allergies Gender: Female : 1940 Exam Type: Invasive Peripheral Vascular Procedure(s): Procedure Description: Peripheral Cath Diagnostic Procedure Procedure Description: Abdominal aortic angiography Procedure Description: Lower extremities' angiography Procedure Description: Peripheral vascular Intervention Procedure Description: PV Balloon Exam Priority: Routine Conclusions Peripheral Procedure Description: Critical limb ischemia of the left foot and leg [place] grade V :Viktoriya stage IV. ProcedureRight common femoral approach was adopted. 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 Mid to distal left SFA is 100% chronically occluded with mid stent. #10 Left popliteal arteries , left tibioperoneal trunk left peroneal anterior and posterior tibial no flow noted below the knee was observed. Right common femoral, right SFA has mild proximal and distal lesion without significant stenosis. Right popliteal tibioperoneal trunk has luminal irregularity. Right anterior tibial artery is patent throughout his its course into the foot. Right peroneal artery has luminal irregularity but can be traceable up to mid leg.Intervention: Right common femoral artery approach was used with the help of Glidewire and seeker catheter with somewhat difficulty we were able to cross the SFA into left anterior tibial artery. Multiple balloon angioplasty starting from the distal mid and anterior tibial vessels were used. Multiple balloon angioplasty of the tibioperoneal trunk was performed whole SFA was also treated with multiple balloon angioplasties. Please see the list for the balloon used. Good angiographic result with good flow was achieved in left SFA, left popliteal, left tibioperoneal trunk and anterior tibial vessel all the way to the foot. Single vessel runoff was noted below the knee. Posterior tibial and peroneal arteries known to be chronically occluded. Anterior tibial artery through arch gave somewhat blood supply to posterior tibial. At the end of the procedure dopplerable anterior and posterior tibial pulses noted. Recommendations 1-Return to inpatient for close monitoring and routine cath care 2-Risk factor modification for secondary prevention 3-Statin and aspirin 81 mg life--long, if tolerated 4-Consider anticoagulation low-dose 5-Continue optimal medical management 6-Follow up with Dr. Lindo in four weeks and your primary care in 10 days. Access Site Site: Right Femoral artery Sheath Size: 6 Fr Hemost... Method: Suture Hemost... Success: Successful Procedure Details Findings Procedure Consent Obtained. Admit Source: In Patient. Pre-Procedure Time Out. Identified patient by full name and date of as verbalized by the patient/guarantor. Does the consent match the physician's order: Yes. Accurate & Complete Informed Consent: Yes. Inpatient/Outpatient History & Physical on Chart: Yes. If H&P is completed, is and addenduem needed: N/A; If yes, is the addendum complete: N/A. Visualize and Verify Site with Patient/Guarantor: N/A. Relevant Radiology Images available: N/A. The risks, benefits, and alternatives of sedation and/or procedure were discussed by physician. The patient agrees to continue. Procedure started. Correct patient, site and procedure confirmed by cath team. PERRLA. Strong, equal hand bag tester bilaterally. Lungs clear x 5 lobes. IV Site on Arrival: 20 gauge in the left forearm. Pre Procedural Pulses: bilateral dorsalis pedis was Doppled. Pre Procedural Pulses: bilateral posterior tibial was Doppled. Oxygen started at 2liters/min via nasal canula. bilateral groins was prepped with chloroprep then draped in the usual sterile fashion. anthesia here to maintain airway/ sedation. Baseline sample Acquired. HR: 87 BPM. Physician notified. Physician arrived. Physician scrubbed in. Time out performed with cath team. Lidocaine 1% infiltrated to the right groin. Arterial access obtained with micropuncture set. hand injection performed. 6 Fr RIM is sitting at the bifercation. guide wire inserted. RIM out. A 5FrFr UF catheter in over wire. [place] wire out. Abdominal aortogram performed in AP @ 10 mL/sec for a total of 30 mL. glide wire inserted. Catheter out. Sheath upsized to a 6 Fr. Side port of sheath attached to Normal Saline flush at KVO to maintain patency. Trailblazer catheter inserted over the wire. hand injection performed X2. hand injection performed. glide wire out. command wire inserted through seeker. seeker removed over command wire. Inflation number : 1 A AB ARMADA 14 OTW [id number] was prepped and advanced across the Anterior Tibial, Left , then inflated to 10 ARANZA for 2:03 seconds. Inflation number: 2 The AB ARMADA 14 OTW [id number] was reinflated across the Anterior Tibial, Left, to 12 ARANZA for 2:02 seconds. Balloon out. Trailblazer catheter inserted over the command wire. command wire out. glide wire inserted in through the seeker. balloon inserted over guide wire. Inflation number : 1 A AB [place] 35 DOCUMENT MANAGEMENT CONSULTANT Catheter [id number] was prepped and advanced across the Popliteal, Left , then inflated to 2 ARANZA for 2:15 seconds. Inflation number: 1 The AB [place] 35 DOCUMENT MANAGEMENT CONSULTANT Catheter [id number] was reinflated across the Distal Superficial Femoral, Left, to 10 ARANZA for 2:01 seconds. Inflation number: 2 The AB [place] 35 DOCUMENT MANAGEMENT CONSULTANT Catheter [id number] was reinflated across the Distal Superficial Femoral, Left, to 8 ARANZA for 2:05 seconds. Inflation number: 3 The AB [place] 35 DOCUMENT MANAGEMENT CONSULTANT Catheter [id number] was reinflated across the Distal Superficial Femoral, Left, to 8 ARANZA for 2:02 seconds. going in with seeker wire. Left leg runoff. 10mL/sec for a total of 30mL. seeker out. Balloon inserted over the wire. Inflation number : 1 A AB ARMADA 35 OTW [id number] was prepped and advanced across the Left SFA, then inflated to 12 ARANZA for 2:02 seconds. Inflation number: 4 The AB [place] 35 OTW [id number] was reinflated across the Distal Superficial Femoral, Left, to 12 ARANZA for 1:02 seconds. Inflation number: 5 The AB [place] 35 OTW [id number] was reinflated across the Distal Superficial Femoral, Left, to 12 ARANZA for 2:04 seconds. seeker inserted. command wire inserted through the seeker. seeker out. Inflation number: 1 The AB [place] 35 DOCUMENT MANAGEMENT CONSULTANT Catheter [id number] was reinflated across the Plantar arch, Left, to 6 ARANZA for 1:30 seconds. Inflation number: 2 The AB [place] 35 DOCUMENT MANAGEMENT CONSULTANT Catheter [id number] was reinflated across the Plantar arch, Left, to 14 ARANZA for 1:01 seconds. Inflation number: 3 The AB [place] 35 DOCUMENT MANAGEMENT CONSULTANT Catheter [id number] was reinflated across the Anterior Tibial, Left, to 13 ARANZA for 1:03 seconds. Inflation number: 4 The AB [place] 35 DOCUMENT MANAGEMENT CONSULTANT Catheter [id number] was reinflated across the Anterior Tibial, Left, to 16 ARANZA for 2:03 seconds. Left leg runoff 10mL/sec for a total of 30mL. seeker inserted over command wire. hand injection performed with digital subtraction. X3. exchange 6F long sheath for 6Fshort sheath. Right leg runoff performed, 10mL/sec for a total of 30mL. wire and catheter out. Sheath(s) sutured into position with 2-0 silk and sterile 4x4's and Op-site applied over the site. No oozing or signs and symptoms of hematoma noted. Post Procedure: Pulses reassessed and unchanged. PERRLA. Strong, equal hand bag tester bilaterally. No VTE prophylaxis required. Medication's Wasted: Heparin = 2000 units. Medication's Wasted: Lidocaine 1% = 14 mL. Medication's Wasted: Other = cardene 24mg. Medication's Wasted: Nitro = 19.2 mg. Total IV fluids: 400 mL. Contrast type used: Visipaque 320 mgI/mL, 500 mL bottle. Contrast Material : Visipaque 151 ml. Post-op diagnosis: post DOCUMENT MANAGEMENT CONSULTANT of left SFA, POP, TPT, and AT. gnosticist of flow acheived. Complications: none. Estimated blood loss: 5mL-10mL. Procedure completed. Patient transferred by bed to ICU. A Suture was successful obtaining hemostatsis at the Right Femoral artery insertion site. Vital chart was stopped. Procedure Medications Start: 10:58 AM Stop: 10:58 AM Medication: Heparin Amount: 5000 units Route: I.V. Start: 11:36 AM Stop: 11:36 AM Medication: Cardene Amount: 500 mcg Start: 12:01 PM Stop: 12:01 PM Medication: Heparin Amount: 2000 units Route: I.V. Start: 12:15 PM Stop: 12:15 PM Medication: Nitrogylcerin Amount: 400 mcg Route: I.A. Start: 12:33 PM Stop: 12:33 PM Medication: Nitrogylcerin Amount: 200 mcg Route: I.A. Start: 12:36 PM Stop: 12:36 PM Medication: Nitrogylcerin Amount: 200 mcg Route: I.A. I, the attending physician, have reviewed and verified all procedure medications. Yes, all medications given per verbal order History/Risk Factors Hypertension: Yes Dyslipidemia: No Peripheral Arterial Disease (PAD): Yes Myocardial Infarction (IN): No Obesity: No Renal Disease: No Tobacco Use: Former Prior Interventions PCI: Yes CABG: No Valve Surgery: No Report Signatures Finalized by:Zulema Lindo MD on 11/01/2019 5:13:24 PM
--- NOTE | 2019-10-18 10:04 | PM.PN ---
Subjective Subjective: Interval history: Patient's kidney functions back to normal. She is planned to have the peripheral angiogram and possible intervention by Dr. Lindo today. Denies any chest pain or shortness of breath. Medications: Reviewed: Yes Medication Review Details: Current Medications Acetaminophen (Tylenol) 650 mg PO Q6H PRN PRN Reason: Mild/Mod Pain Or Temp >/= 101 Hydrocodone Bitart/Acetaminophen ([place] 5-325 Mg) 1 tab PO Q4H PRN PRN Reason: MODERATE PAIN Last Admin: 10/17/19 22:41 Dose: 1 tab Documented by: Amlodipine Besylate (Norvasc) 10 mg PO DAILY [facility] Last Admin: 10/18/19 09:09 Dose: 10 mg Documented by: Atorvastatin Calcium (Lipitor) 40 mg PO DAILY [facility] Last Admin: 10/18/19 09:08 Dose: 40 mg Documented by: Bisacodyl (Bisac-Evac) 10 mg [place] DAILY PRN PRN Reason: Constipation Clopidogrel Bisulfate (Plavix) 75 mg PO DAILY [facility] Last Admin: 10/18/19 09:09 Dose: 75 mg Documented by: Donepezil HCl (Aricept) 5 mg PO DAILY [facility] Last Admin: 10/18/19 09:08 Dose: 5 mg Documented by: Enoxaparin Sodium (Lovenox) 80 mg SUBCUT Q12H [facility] Last Admin: 10/17/19 23:58 Dose: 80 mg Documented by: Hydralazine HCl (Apresoline) 10 mg IVP Q4H PRN PRN Reason: SBP>170 Last Admin: 10/17/19 08:43 Dose: 10 mg Documented by: Ceftriaxone Sodium 1,000 mg/ (Sodium Chloride) 50 mls @ 100 mls/hr IV Q24H [facility]; Protocol Last Admin: 10/17/19 13:59 Dose: 100 mls/hr Documented by: Dextrose (D5w) 1,000 mls @ 30 mls/hr IV .Q24H [facility] Last Admin: 10/18/19 05:54 Dose: 30 mls/hr Documented by: Magnesium Hydroxide (Milk Of Magnesia) 30 ml PO DAILY PRN PRN Reason: Constipation Memantine (Namenda) 10 mg PO BID [facility] Last Admin: 10/18/19 09:08 Dose: 10 mg Documented by: Morphine Sulfate (Morphine) 2 mg IVP Q8H PRN PRN Reason: SEVERE PAIN Last Admin: 10/18/19 02:08 Dose: 2 mg Documented by: Naloxone HCl (Narcan) 0.1 mg IVP Q2M PRN PRN Reason: OPIATERV Nitroglycerin (Nitro-Dur 0.4 Mg Patch) 1 patch TRANSDERMA Q24H [facility] Last Admin: 10/17/19 19:19 Dose: Not Given Documented by: Ondansetron HCl (Zofran) 4 mg IVP Q6H PRN PRN Reason: NAUSEA AND VOMITING Pantoprazole Sodium (Protonix) 40 mg PO DAILY [facility] Last Admin: 10/18/19 09:09 Dose: 40 mg Documented by: Venlafaxine HCl (Effexor) 37.5 mg PO BID [facility] Last Admin: 10/18/19 09:08 Dose: 37.5 mg Documented by: Vitals/I&O/Wt Last Vital Signs Temp 98.1 F 10/18/19 08:00 Pulse 98 10/18/19 08:00 Resp 18 10/18/19 08:00 BP 167/92 10/18/19 08:00 Pulse Ox 95 10/18/19 08:00 10/17/19 10/18/19 10/18/19 22:59 06:59 14:59 Intake Total 268 / 1171.667 545 / 1716.667 Output Total 550 / 1000 1300 / 2300 Balance -282 / 171.667 -755 / -583.333 Weight last 48 hrs Weight 153 lb 12.8 oz Physical Exam Narrative: EXAM NARRATIVE: GENERAL: The patient is alert and calm HEENT: No significant pallor, icterus or lymphadenopathy.Oral cavity: There are no mucous membrane lesions. NECK: Trachea appears to be central. No masses noted. No JVD or thyromegaly appreciated. RESPIRATORY: Chest is symmetrical. No intercostals muscle retraction or any accessory muscle activation. There is no chest wall tenderness. Breath sounds are heard bilaterally. No rales or rhonchi heard. No evidence of any consolidation. BREASTS: Deferred. HEART: The heart sounds are normal. No S3 or S4. Short systolic murmur at the left sternal border. No diastolic murmurs. ABDOMEN: No vessel pulsations or distention. No tenderness. No organomegaly appreciated. Bowel sounds are normally heard. : Deferred. RECTAL: Deferred. LYMPHATIC: No lymphadenopathy noted in the neck . EXTREMITIES: 1+ edema bilaterally in the lower extremities. The left toes are pinkish. No ulcerations noted MUSCULOSKELETAL: No acute joint deformities or swelling SKIN: There are no significant rashes. NEUROPSYCHIATRIC: The patient is alert. No focal motor deficits. Urinary Catheter Management^: Richardson: Cath Placed During This Visit: yes Reason for Continuing Indwelling Catheter: Required Immobilization for Trauma or Surgery or Anesthesia Urinary Catheter Date of Insertion: 10/15/19 Urinary Catheter Time of Insertion: 14:07 Data : 10/18/19 04:27 10/18/19 04:27 Micro: Microbiology 10/15/19 13:40 Urine Culture - Preliminary Urine,Clean Catch Gram Negative Rods A&P Assessment and plan (1) Critical limb ischemia with history of revascularization of same extremity: Patient is scheduled for peripheral angiogram and possible intervention today. Status: Acute (2) Acute renal failure (ARF): Careful hydration may be continued Status: Acute Qualifiers: Acute renal failure type: unspecified Qualified Code(s): N17.9 - Acute kidney failure, unspecified (3) Acute alteration in mental status: Patient continues to have the dementia with no significant change Status: Acute (4) Acute UTI: As per medicine Status: Acute (5) CVA (cerebral vascular accident): Continue to monitor patient has history of CVA Status: Acute Qualifiers: CVA mechanism: other Qualified Code(s): I63.89 - Other cerebral infarction (6) Hypertension: Currently stable and normotensive. Status: Acute Qualifiers: Hypertension type: essential hypertension Qualified Code(s): I10 - Essential (primary) hypertension Additional A&P Information Based on angiogram findings, further management decisions will be made. May continue on the other current measures for the time being Attestations Medical Necessity Statement*: Patient requires continued hospital stay for close monitoring and further management Coding Level of Care Code Acute Survey Director for [facility] Fwd Diagnoses Critical limb ischemia with history of revascularization of same extremity I99.8; Z95.9 Acute renal failure (ARF) N17.9 Acute renal failure type: unspecified Acute alteration in mental status R41.82 Acute UTI N39.0 CVA (cerebral vascular accident) I63.89 CVA mechanism: other Hypertension I10 Hypertension type: essential hypertension
--- NOTE | 2019-10-18 10:21 | PC.NURSE ---
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
--- NOTE | 2019-10-18 13:05 | P.PN_ITS ---
Subjective Subjective: Interval history: Due to continuous deterioration of left leg and foot with pain at rest and dusky color, we decided to take patient to the [facility] since her creatinine is normalized as well as sepsis is almost resolved plus vitals were stable. She still continues to have waxing and waning confusional state. Medications: Reviewed: Yes Medication Review Details: Current Medications Acetaminophen (Tylenol) 650 mg PO Q6H PRN PRN Reason: Mild/Mod Pain Or Temp >/= 101 Hydrocodone Bitart/Acetaminophen ([place] 5-325 Mg) 1 tab PO Q4H PRN PRN Reason: MODERATE PAIN Last Admin: 10/17/19 22:41 Dose: 1 tab Documented by: Amlodipine Besylate (Norvasc) 10 mg PO DAILY [facility] Last Admin: 10/18/19 09:09 Dose: 10 mg Documented by: Atorvastatin Calcium (Lipitor) 40 mg PO DAILY [facility] Last Admin: 10/18/19 09:08 Dose: 40 mg Documented by: Bisacodyl (Bisac-Evac) 10 mg [place] DAILY PRN PRN Reason: Constipation Clopidogrel Bisulfate (Plavix) 75 mg PO DAILY [facility] Last Admin: 10/18/19 09:09 Dose: 75 mg Documented by: Donepezil HCl (Aricept) 5 mg PO DAILY [facility] Last Admin: 10/18/19 09:08 Dose: 5 mg Documented by: Enoxaparin Sodium (Lovenox) 80 mg SUBCUT Q12H [facility] Last Admin: 10/17/19 23:58 Dose: 80 mg Documented by: Hydralazine HCl (Apresoline) 10 mg IVP Q4H PRN PRN Reason: SBP>170 Last Admin: 10/17/19 08:43 Dose: 10 mg Documented by: Ceftriaxone Sodium 1,000 mg/ (Sodium Chloride) 50 mls @ 100 mls/hr IV Q24H [facility]; Protocol Last Admin: 10/17/19 13:59 Dose: 100 mls/hr Documented by: Dextrose (D5w) 1,000 mls @ 30 mls/hr IV .Q24H [facility] Last Admin: 10/18/19 05:54 Dose: 30 mls/hr Documented by: Magnesium Hydroxide (Milk Of Magnesia) 30 ml PO DAILY PRN PRN Reason: Constipation Memantine (Namenda) 10 mg PO BID [facility] Last Admin: 10/18/19 09:08 Dose: 10 mg Documented by: Morphine Sulfate (Morphine) 2 mg IVP Q8H PRN PRN Reason: SEVERE PAIN Last Admin: 10/18/19 02:08 Dose: 2 mg Documented by: Naloxone HCl (Narcan) 0.1 mg IVP Q2M PRN PRN Reason: OPIATERV Nitroglycerin (Nitro-Dur 0.4 Mg Patch) 1 patch TRANSDERMA Q24H [facility] Last Admin: 10/17/19 19:19 Dose: Not Given Documented by: Ondansetron HCl (Zofran) 4 mg IVP Q6H PRN PRN Reason: NAUSEA AND VOMITING Pantoprazole Sodium (Protonix) 40 mg PO DAILY [facility] Last Admin: 10/18/19 09:09 Dose: 40 mg Documented by: Venlafaxine HCl (Effexor) 37.5 mg PO BID [facility] Last Admin: 10/18/19 09:08 Dose: 37.5 mg Documented by: Vitals/I&O/Wt Last Vital Signs Temp 98.1 F 10/18/19 08:00 Pulse 98 10/18/19 08:00 Resp 18 10/18/19 08:00 BP 167/92 10/18/19 08:00 Pulse Ox 95 10/18/19 08:00 10/17/19 10/18/19 10/18/19 22:59 06:59 14:59 Intake Total 268 / 1171.667 545 / 1716.667 Output Total 550 / 1000 1300 / 2300 Balance -282 / 171.667 -755 / -583.333 Weight last 48 hrs Weight 153 lb 12.8 oz Physical Exam Narrative: EXAM NARRATIVE: GENERAL: Patient is confused NECK: No jugular vein distension. HEENT: No cyanosis. No icterus. No pallor. HEART: Regular S1 and S2. No murmur, rub or gallop. LUNGS: Clear to auscultate bilaterally. CENTRAL NERVOUS SYSTEM: Confused, patient has a underlying dementia motor and sensory positive EXTREMITIES: Lower extremities without edema bilaterally. No dorsalis pedis and posterior tibial in the left foot but it is warm but dusky and painful Const: COMMON NORMALS: alert Resp: COMMON NORMALS: clear to auscultation bilaterally AUSCULTATION: clear to auscultation bilaterally Neuro: SENSORIUM/ORIENTATION: Yes alert Urinary Catheter Management^: Richardson: Cath Placed During This Visit: yes Reason for Continuing Indwelling Catheter: Required Immobilization for Trauma or Surgery or Anesthesia Urinary Catheter Date of Insertion: 10/15/19 Urinary Catheter Time of Insertion: 14:07 Data : 10/18/19 04:27 10/18/19 04:27 Micro: Microbiology 10/15/19 13:40 Urine Culture - Preliminary Urine,Clean Catch Gram Negative Rods A&P Assessment and plan (1) Critical limb ischemia with history of revascularization of same extremity: Since patient sepsis/renal failure was resolved and because of the fact left foot pain getting worse we decided to patient take patient to the [facility] with urgency. She was found to have 100% occlusion of distal left SFA stent no flow was noted beyond that. After somewhat difficulty we were able to cross into left anterior tibial multiple balloon angioplasties of left foot arch anterior tibial tibioperoneal trunk popliteal and proximal to distal left SFA was performed. Finally we were able to restore good flow with one-vessel runoff as patient has chronically occluded peroneal and posterior tibial vessels. Postop left foot color improved, we were able to Doppler good anterior tibial a nd dorsalis pedis pulse. Patient underwent this procedure with the help of anesthesia. Please see anesthesia note. She has underlying dementia and not able to lay still in the bed. Once sheath will be out I will start her on Eliquis 2.5 mg twice a day. Further plan will be advised as per progress of the patient. Status: Acute (2) Acute renal failure (ARF): Continue IV fluid for 10 more hours at 100 mL/h. Continue to monitor creatinine. Status: Acute Qualifiers: Acute renal failure type: unspecified Qualified Code(s): N17.9 - Acute kidney failure, unspecified (3) Acute alteration in mental status: Patient has underlying dementia hopefully she is moving towards her baseline consciousness. Status: Acute (4) Acute UTI: As per medicine Status: Acute (5) CVA (cerebral vascular accident): Continue to monitor patient has history of CVA Status: Acute Qualifiers: CVA mechanism: other Qualified Code(s): I63.89 - Other cerebral infarction (6) Hypertension: Currently stable and normotensive. Status: Acute Qualifiers: Hypertension type: essential hypertension Qualified Code(s): I10 - Essential (primary) hypertension Additional A&P Information I discussed with Dr. Lindo. It was decided to go ahead and schedule for the peripheral angiogram tomorrow around 10 AM with the anesthesia backup. We will keep her n.p.o. after midnight Attestations Medical Necessity Statement*: Patient require continuation hospitalization for above defined care. Coding Level of Care Code Established Pt Acute Bromination Equipment Operator for [facility] Fwd Patient Type Established History Expanded Problem Focused Exam Expanded Problem Focused Medical Decision Making Moderate Complexity Diagnoses Critical limb ischemia with history of revascularization of same extremity I99.8; Z95.9 Acute renal failure (ARF) N17.9 Acute renal failure type: unspecified Acute alteration in mental status R41.82 Acute UTI N39.0 CVA (cerebral vascular accident) I63.89 CVA mechanism: other Hypertension I10 Hypertension type: essential hypertension
--- NOTE | 2019-10-18 13:05 | W.PM.OPSUD ---
Surgery/Procedure H&P Update DATE OF PROCEDURE: October 18, 2019 DATE H&P PERFORMED: 10/16/19 H&P UPDATE INFORMATION: I have reviewed H&P completed within last 30 days and I have examined patient prior to procedure PREOP DIAGNOSIS: Critical limb ischemia with painful left foot/ruborous color requiring more pain medicine PLANNED PROCEDURE: Operation Date: 10/18/19 10:00 Proposed Procedures p Peripheral Intervention(Left) - Zulema Lindo MD Please see anesthesia note. Patient underwent anesthesia for the procedure as inability to stay still on the table. It was an urgent procedure due to worsening of left leg and foot condition with pain at rest
--- NOTE | 2019-10-18 13:20 | ANE.PACU2 ---
Inpatient post-anesthesia follow up: Airway intact: Yes Vital signs: Temperature 98.1 F Pulse Rate 98 Respiratory Rate 18 Blood Pressure 167/92 Pulse Oximetry 95 Oxygen Delivery Me thod Room Air Oxygen Flow Rate Fraction of Inspir ed Oxygen Hydration adequate: Yes Nausea and vomiting: No Mental status: Baseline
--- NOTE | 2019-10-18 13:30 | PC.NURSE ---
Transferred to ICU Dgtr Génesis called and updated her regarding the doctor's decision to transfer pt to ICU-10 to closely monitor her respiratory status and post PCI restrictions. Informed Dr. Lindo that she would like the doctor to call her for an update on the procedure results. Try to give Hand-off report to icu nurse but they said they will call me back. will try to call them again.
[2019-10-18 13:53] LABS: Glucose Point of Care 108 mg/dL (70-110)
[2019-10-18] MEDS: nitroglycerin drip 50 MG/250 ML PREMIX IV (14:58)
[2019-10-18] MEDS: cefTRIAXone 1,000 MG in sodium chloride 0.9% (plus) 50 ML 100 MG IV (14:59)
[2019-10-18] MEDS: sodium chloride 0.9% 1,000 ML 100 ML IV (14:59)
[2019-10-18 15:25] LABS: Partial Thromboplastin Time 124.8 SECONDS (23.9-36.7)
[2019-10-18 19:13] LABS: Partial Thromboplastin Time 35.4 SECONDS (23.9-36.7)
--- NOTE | 2019-10-18 19:36 | PC.NURSE ---
Assumed patient care, patient currently has sheath in right groin. has sitter at bedside due to pulling at lines and sheath. tele shows sr, lungs re cta abdomen soft bs x 4 quads. ring is intact clr yellow urine at this time. vs wnl. iv infusing nitro at 25 mcg and ns at 100 ml/hr
[2019-10-18] MEDS: rivaroxaban 10 mg Tablet 5 MG PO (20:19)
[2019-10-18 20:34] LABS: Glucose Point of Care 105 mg/dL (70-110)
[2019-10-18] MEDS: temazepam 15 mg Capsule PO (21:32)
--- NOTE | 2019-10-18 23:43 | P.PN_ITS ---
Subjective Subjective: Interval history: seen and examined earlier this afternoon after her peripheral angiogram . Angiogram findings of multilevel stenosis, s/p baloon angioplasty with evangelical of blood flow. Limb now with improved color and dopplerable pulses. on NTG infusion post procedure due to elevated BP 180s Medications: Medication Review Details: Current Medications Acetaminophen (Tylenol) 650 mg PO Q6H PRN PRN Reason: Mild/Mod Pain Or Temp >/= 101 Hydrocodone Bitart/Acetaminophen ([place] 5-325 Mg) 1 tab PO Q4H PRN PRN Reason: MODERATE PAIN Last Admin: 10/17/19 22:41 Dose: 1 tab Documented by: Amlodipine Besylate (Norvasc) 10 mg PO DAILY [facility] Last Admin: 10/18/19 09:09 Dose: 10 mg Documented by: Atorvastatin Calcium (Lipitor) 40 mg PO DAILY [facility] Last Admin: 10/18/19 09:08 Dose: 40 mg Documented by: Bisacodyl (Bisac-Evac) 10 mg RI DAILY PRN PRN Reason: Constipation Clopidogrel Bisulfate (Plavix) 75 mg PO DAILY [facility] Last Admin: 10/18/19 09:09 Dose: 75 mg Documented by: Donepezil HCl (Aricept) 5 mg PO DAILY [facility] Last Admin: 10/18/19 09:08 Dose: 5 mg Documented by: Enoxaparin Sodium (Lovenox) 80 mg SUBCUT Q12H [facility] Last Admin: 10/17/19 23:58 Dose: 80 mg Documented by: Hydralazine HCl (Apresoline) 10 mg IVP Q4H PRN PRN Reason: SBP>170 Last Admin: 10/17/19 08:43 Dose: 10 mg Documented by: Ceftriaxone Sodium 1,000 mg/ (Sodium Chloride) 50 mls @ 100 mls/hr IV Q24H [facility]; Protocol Last Admin: 10/17/19 13:59 Dose: 100 mls/hr Documented by: Dextrose (D5w) 1,000 mls @ 30 mls/hr IV .Q24H [facility] Last Admin: 10/18/19 05:54 Dose: 30 mls/hr Documented by: Magnesium Hydroxide (Milk Of Magnesia) 30 ml PO DAILY PRN PRN Reason: Constipation Memantine (Namenda) 10 mg PO BID [facility] Last Admin: 10/18/19 09:08 Dose: 10 mg Documented by: Morphine Sulfate (Morphine) 2 mg IVP Q8H PRN PRN Reason: SEVERE PAIN Last Admin: 10/18/19 02:08 Dose: 2 mg Documented by: Naloxone HCl (Narcan) 0.1 mg IVP Q2M PRN PRN Reason: OPIATERV Nitroglycerin (Nitro-Dur 0.4 Mg Patch) 1 patch TRANSDERMA Q24H [facility] Last Admin: 10/17/19 19:19 Dose: Not Given Documented by: Ondansetron HCl (Zofran) 4 mg IVP Q6H PRN PRN Reason: NAUSEA AND VOMITING Pantoprazole Sodium (Protonix) 40 mg PO DAILY [facility] Last Admin: 10/18/19 09:09 Dose: 40 mg Documented by: Venlafaxine HCl (Effexor) 37.5 mg PO BID [facility] Last Admin: 10/18/19 09:08 Dose: 37.5 mg Documented by: Vitals/I&O/Wt Last Vital Signs Temp 98.2 F 10/18/19 17:00 Pulse 95 10/18/19 20:30 Resp 15 10/18/19 20:30 BP 122/64 10/18/19 20:30 Pulse Ox 98 10/18/19 20:30 10/18/19 10/18/19 10/19/19 14:59 22:59 06:59 Intake Total 335.525 / 335.525 Output Total 875 / 875 Balance -539.475 / -539.475 Weight last 48 hrs Weight 69.763 kg Physical Exam Narrative: EXAM NARRATIVE: GEN: mildly sedated post procedure, however wakes to calling name. Mentation at baseline CVS: S1S2 N RS: CTA B/L Abd: Soft, nt/nd , bs+ NURSE ORTHOPAEDIC: moves extremities in bed, not necassarily to commands (baseline) Extremities: Improved appearance of left foot, color now pink-red. Pulses+ Urinary Catheter Management^: Richardson: Cath Placed During This Visit: yes Reason for Continuing Indwelling Catheter: Required Immobilization for Trauma or Surgery or Anesthesia Urinary Catheter Date of Insertion: 10/15/19 Urinary Catheter Time of Insertion: 14:07 Data : 10/18/19 04:27 10/18/19 04:27 Micro: Microbiology 10/15/19 13:40 Urine Culture - Preliminary Urine,Clean Catch Gram Negative Rods A&P Assessment and plan (1) Acute alteration in mental status: Related to metabolic encephalopathy from UTI vs hypernatremia and dehydration Mental status is significantly improved. This appears to be close to patient's baseline. She is now able to swallow, looks alert and awake, better hydrated and attempts to converse, though short sentences which are out of context. Confirmed with daughter this is best baseline. + UA, urine cx with GNR awaiting identification, blood cx negative to date STop d5W, Na normalized now at 138. Discussed extensively with daughter. She states that at a baseline patient is not nonverbal. Is not really a able to converse except to speak a few sentences intermittently. She does not recognize the daughter however she is able to eat or drink with much encouragement and able to swallow. Over the past 3 to 4 weeks she has noticed a more rapid decline in her mother's cognitive function. She has also lost 9 pounds since the end of June and over this. May not have been adequately taking p.o. intake. IV ceftriaxone empirically while awaiting cx results Status: Acute (2) Acute UTI: iv ceftriaxone as above Status: Acute (3) Critical ischemia of lower extremity: Multilevel occlusion on CTA s/p angiogram and balloon angioplasty today- findings of 100% occlusion of distal left SFA stent no flow was noted beyond that. multiple balloon angioplasties of left foot arch anterior tibial tibioperoneal trunk popliteal and proximal to distal left SFA was performed. 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 Postop left foot color improved, able to Doppler good anterior tibial and dorsalis pedis pulse. Started now on xarelo 5mg po qd. Lovenox discontinued. Status: Acute (4) Critical limb ischemia with history of revascularization of same extremity: Continue antiplatelets and statins Xarelto as above, closely monitor Hb level Status: Acute (5) Alzheimer's dementia: Continue aricept and namenda Status: Acute Qualifiers: Alzheimer's disease onset: unspecified onset Dementia behavioral disturbance: without behavioral disturbance Qualified Code(s): G30.9 - Alzheimer's disease, unspecified; F02.80 - Dementia in other diseases classified elsewhere without behavioral disturbance (6) Hypernatremia: Resolved TSH low at 0.2. Free t3 and t4 within range. Status: Acute (7) Ischemic heel ulcer: Optifoam dressing and pressure boots Status: Acute Additional A&P Information Hypertension: Hold lisinorpil given hyperkalemia and cr 1.6 . Started amlodipine. HCTZ held due angiogram. 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
[2019-10-19] VITALS (85 sets, daily range): BP systolic 82–175; BP diastolic 56–111; PULSE 61–105; RESP 12–28; TEMP 36.4–37.3; O2SAT 94–98
[2019-10-19] MEDS: sodium chloride 0.9% 1,000 ML 100 ML IV ×2 (03:06→16:48)
[2019-10-19 04:07] LABS: Basophils % 0.2 %; Hematocrit 28.9 % (37.0-47.0); Hemoglobin 8.9 g/dL (11.5-15.3); Lymphocytes # 0.8 10^3/uL (0.8-4.8); Lymphocytes % 15.3 %; Mean Corpuscular HGB Conc 30.8 g/dL (30.0-36.0); Mean Corpuscular Hemoglobin 28.1 pg (28.0-34.0); Mean Corpuscular Volume 91.2 fL (81-99); Mean Platelet Volume 9.7 fL (7.4-10.4); Monocytes # 0.4 10^3/uL (0.2-0.9); Monocytes % 8.2 %; Neutrophils # 4.1 10^3/uL (1.8-7.7); Neutrophils % 76.1 %; Nucleated Red Blood Cells % 0 %; Platelet Count 167 10^3/cmm (130-400); Red Blood Count 3.17 10^6/uL (4.1-5.3); Red Cell Distribution Width 12.8 % (12.1-15.1); White Blood Count 5.4 10^3/uL (4.0-10.0)
[2019-10-19 04:22] LABS: Anion Gap 12.3 (5-19); Blood Urea Nitrogen 16 mg/dL (8-23); Calcium 8.9 mg/dL (8.5-10.5); Carbon Dioxide 24 mmol/L (22-29); Chloride 108 mmol/L (98-107); Glucose 95 mg/dL (65-115); Osmolality Calculated 286 mOsm/kg (285-295); Potassium 4.3 mmol/L (3.5-5.1); Sodium 140 mmol/L (136-145)
--- NOTE | 2019-10-19 08:50 | P.PN_ITS ---
Subjective Subjective: Interval history: According to the nurse Keya is back to her baseline mental status. She can answer a few questions, but is obviously confused. She appears calm. She denies any significant pain. Medications: Reviewed: Yes Vitals/I&O/Wt Last Vital Signs Temp 98.9 F 10/19/19 04:00 Pulse 98 10/19/19 05:45 Resp 22 H 10/19/19 05:45 BP 134/64 10/19/19 05:45 Pulse Ox 96 10/19/19 05:45 10/18/19 10/19/19 10/19/19 22:59 06:59 14:59 Intake Total 455.525 / 444.420 2853 / 1515.525 Output Total 975 / 975 100 / 1075 900 / 900 Balance -519.475 / -519.475 960 / 440.525 -900 / -900 Physical Exam Narrative: EXAM NARRATIVE: General exam no apparent distress Cardiovascular regular rate and rhythm without murmur Lungs clear Abdomen is soft with positive bowel sounds Extremities no cyanosis clubbing. Slight edema left foot. Pulses palpable dorsalis pedis, faint. Refill less than 2 seconds. Right groin site with bandage but does not appear to have significant hematoma. Urinary Catheter Management^: Richardson: Cath Placed During This Visit: yes Reason for Continuing Indwelling Catheter: Required Immobilization for Trauma or Surgery or Anesthesia Urinary Catheter Date of Insertion: 10/15/19 Urinary Catheter Time of Insertion: 14:07 Data : 10/19/19 03:18 10/19/19 03:18 Micro: Microbiology 10/15/19 13:40 Urine Culture - Preliminary Urine,Clean Catch Gram Negative Rods A&P Assessment and plan (1) Acute alteration in mental status: Metabolic encephalopathy secondary to dehydration/hypernatremia/UTI. Now resolved. Status: Acute (2) Acute UTI: iv ceftriaxone as above Status: Acute (3) Critical ischemia of lower extremity: Multilevel occlusion on CTA s/p angiogram and balloon angioplasty October 17- findings of 100% occlusion of distal left SFA stent no flow was noted beyond that. Multiple balloon angioplasties of left foot arch anterior tibial tibioperoneal trunk popliteal and proximal to distal left SFA was performed. 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 Postop left foot color improved, able to Doppler good anterior tibial and dorsalis pedis pulse. Cardiology has recommended addition of Xarelto to Plavix Status: Acute (4) Critical limb ischemia with history of revascularization of same extremity: Continue statin, Plavix. Xarelto added. Status: Acute (5) Alzheimer's dementia: Continue home medication Status: Acute Qualifiers: Alzheimer's disease onset: unspecified onset Dementia behavioral disturbance: without behavioral disturbance Qualified Code(s): G30.9 - Alzheimer's disease, unspecified; F02.80 - Dementia in other diseases classified elsewhere without behavioral disturbance (6) Hypernatremia: Resolved TSH low but free T4 and T3 normal Status: Acute (7) Ischemic heel ulcer: Optifoam dressing and pressure boots Status: Acute Additional A&P Information Hypertension. Currently on nitroglycerin drip. Norvasc added. Hydrochlorothiazide held. As renal function has improved we will restart lisinopril, lower dose at 10 mg daily. Monitor renal function and potassium on medication. UTI. Currently on IV ceftriaxone. Urine culture growing gram-negative rods. Await culture results. DNR/DNI DVT prophylaxis with Xarelto Advance diet Transfer out of ICU today if we can get her off the nitroglycerin drip. Reduce fluids Attestations Medical Necessity Statement*: Needs continued hospital stay for close monitoring of ischemic left lower extremity status post intervention as well as IV antibiotics for UTI. 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
[2019-10-19] MEDS: amlodipine 10 mg Tablet PO (09:00)
[2019-10-19] MEDS: pantoprazole DR 40 mg Tablet PO (09:00)
[2019-10-19] MEDS: rivaroxaban 10 mg Tablet 5 MG PO (09:00)
[2019-10-19] MEDS: venlafaxine 75 mg Tablet 37.5 MG PO ×2 (09:01→17:14)
[2019-10-19] MEDS: memantine 5 mg tablet 10 MG PO ×2 (09:01→17:14)
[2019-10-19] MEDS: atorvastatin 40 mg Tablet PO (09:01)
[2019-10-19] MEDS: donepezil 5 MG Tablet PO (09:02)
[2019-10-19] MEDS: lisinopril 10 mg Tablet PO (09:02)
--- NOTE | 2019-10-19 10:52 | PC.NURSE ---
PATIENT UPDATE Patient has begun to pull on catheter and telemetry leads. Patient has been given diversionary activities (fold wash cloths/sheet) to keep her hands busy. Patient cooperates when redirected. Patient will be transferred out of ICU with 1:[address] Ramirez.
--- NOTE | 2019-10-19 13:24 | PC.NURSE ---
LEFT FOOT PAIN Patient grimaces any time left leg/foot is touched. Patient does not act like she is in pain unless touching leg/foot.
[2019-10-19] MEDS: cefTRIAXone 1,000 MG in sodium chloride 0.9% (plus) 50 ML 100 MG IV (13:31)
[2019-10-19] MEDS: clopidogrel 75 mg Tablet PO (13:50)
--- NOTE | 2019-10-19 14:36 | PC.NURSE ---
CLOPIDOGREL DELAY Patient had clopidogrel and rivaroxaban ordered to give at 0900 this morning. Upon corresponding with another nurse, it was agreed to speak with the doctor regarding the patient being on both of the medications at once. Dr. Lindo instructed to hold the clopidogrel until he spoke with Dr. Ramirez. It was agreed that the patient was to continue the clopidogrel, which she takes at home, and to also continue the rivaroxaban which Dr. Lindo has added to prevent further circulation/perfusion issues post surgery.
[2019-10-19] MEDS: HYDROcodone-acetaminophen 5-325 mg Tablet 1 TAB PO (21:26)
[2019-10-20] VITALS: BP 132/90; PULSE 77; RESP 21; O2SAT 98
[2019-10-20 03:45] VITALS: BP 166/100; PULSE 89; RESP 15; TEMP 36.4; O2SAT 97
[2019-10-20 04:00] VITALS: BP 165/91
--- NOTE | 2019-10-20 05:49 | PC.NURSE ---
End of shift: Patient has rested well this shift. Patient has pulled her IV once or twice but easily redirectable. Patient will fold wash cloths. Patient pedal pulses are dopplerable. Will continue to montior.
[2019-10-20 05:52] LABS: Basophils % 0.2 %; Hemoglobin 8.5 g/dL (11.5-15.3); Lymphocytes % 20.7 %; Mean Corpuscular HGB Conc 30.4 g/dL (30.0-36.0); Mean Corpuscular Hemoglobin 28.1 pg (28.0-34.0); Mean Corpuscular Volume 92.4 fL (81-99); Monocytes # 0.4 10^3/uL (0.2-0.9); Monocytes % 9.6 %; Neutrophils # 3.2 10^3/uL (1.8-7.7); Neutrophils % 69.3 %; Nucleated Red Blood Cells % 0 %; Platelet Count 161 10^3/cmm (130-400); Red Blood Count 3.03 10^6/uL (4.1-5.3); Red Cell Distribution Width 13.1 % (12.1-15.1); White Blood Count 4.6 10^3/uL (4.0-10.0)
[2019-10-20 06:45] LABS: Anion Gap 11.6 (5-19); Blood Urea Nitrogen 14 mg/dL (8-23); Calcium 9.3 mg/dL (8.5-10.5); Carbon Dioxide 24 mmol/L (22-29); Chloride 107 mmol/L (98-107); Glucose 92 mg/dL (65-115); Osmolality Calculated 284 mOsm/kg (285-295); Potassium 3.6 mmol/L (3.5-5.1); Sodium 139 mmol/L (136-145)
[2019-10-20 08:00] VITALS: BP 141/73; PULSE 84; RESP 12; TEMP 36.6; O2SAT 96
--- NOTE | 2019-10-20 08:58 | PM.DCS ---
Discharge Providers Date of Admission: 10/15/19 15:18 Date of Discharge: October 20, 2019 Attending Provider at Admission: Nico Gabriel MD Attending Provider at Discharge: Adonay Ramirez MD Primary Care Provider: Simon Garcia Diagnoses at Discharge Discharge Diagnosis (1) Acute alteration in mental status: Status: Acute Problem details: Resolved (2) Acute UTI: Status: Acute Problem details: Discharge on short course of cefuroxime (3) Critical ischemia of lower extremity: Status: Acute (4) Critical limb ischemia with history of revascularization of same extremity: Status: Acute Problem details: Status post intervention (5) Alzheimer's dementia: Status: Acute Qualifiers: Alzheimer's disease onset: unspecified onset Dementia behavioral disturbance: without behavioral disturbance Qualified Code(s): G30.9 - Alzheimer's disease, unspecified; F02.80 - Dementia in other diseases classified elsewhere without behavioral disturbance (6) Hypernatremia: Status: Acute (7) Ischemic heel ulcer: Status: Acute Reason for Visit Reason for Visit: CONFUSED/ NO PEDAL PULSES IN L FOOT Hospital Course Hospital Course: Keya presented to the hospital with concerns of limb ischemia. She also had an altered mental status and there was concern of UTI. She was placed on ceftriaxone. Cardiology was consulted in regards to the limb ischemia. Lovenox was initiated. On October 17 she underwent angiogram, with balloon angioplasty multiple areas. She was placed in the ICU following this for nitroglycerin drip secondary to elevated blood pressures. With this she was followed closely, and post procedure had a palpable pulse in her left lower extremity. The rest of her hospital course she did well and continue to recover. Mental status was at baseline. Hemoglobin remained stable although low. On discharge she will be followed up by her primary care provider in 3 to 5 days with a CBC and a BMP. I did discuss with cardiology her anticoagulation and we will be discontinuing her Plavix, placing her on an 81 mg aspirin instead as she is going on anticoagulation with Xarelto. This is to reduce her risk of significant bleeding or anemia. Physical Exam Narrative: EXAM NARRATIVE: General exam no apparent distress Cardiovascular regular in rhythm without murmur Lungs clear Abdomen is soft positive bowel sounds Right groin with no evidence of significant hematoma Lower extremities with some slight edema left lower extremity. Pulses intact. Refill less than 2 seconds. Urinary Catheter Management^: Richardson: Cath Placed During This Visit: yes Reason for Continuing Indwelling Catheter: Acute Urinary Retention or Obstruction Urinary Catheter Date of Insertion: 10/15/19 Urinary Catheter Time of Insertion: 14:07 Discharge Data Data Completed and Pending: Completed Studies During Hospitalization Category Date Time Status CT angio abd aort a runof 00930 Stat Cat Scan 10/15/19 11:[address] head wo con* 7 0450 Stat Cat Scan 10/15/19 12:18 Completed XR chest 1V abhishek ble 25370 Routine Exams 10/16/19 06:00 [place] [address] Urge nt Ultrasound 10/15/19 10:45 [place] [address] Stat Ultrasound 10/15/19 11:13 Completed Pending at discharge Category Date Time Status MOTH EXTERMINATOR request for service Routin e Exams 10/18/19 10:00 Taken Blood Culture AM LABS Lab 10/16/19 03:43 Results Labs from last 24 hours 10/20/19 10/20/19 04:41 04:41 WBC 4.6 RBC 3.03 L Hgb 8.5 L Hct 28.0 L MCV 92.4 MCH 28.1 MCHC 30.4 RDW 13.1 Plt Count 161 MPV 10.0 Neut % (Auto) 69.3 Lymph % (Auto) 20.7 [place] % (Auto) 9.6 Eos % (Auto) 0.0 Baso % (Auto) 0.2 Neut # (Auto) 3.2 Lymph # (Auto) 1.0 [place] # (Auto) 0.4 Eos # (Auto) 0.0 Baso # (Auto) 0.0 Nucleated RBC % (a uto) 0 Nucleated RBCs # 0.0 Sodium 139 Potassium 3.6 Chloride 107 Carbon Dioxide 24 Anion Gap 11.6 BUN 14 Creatinine 0.7 Glucose 92 Calculated Osmolal ity 284 L Calcium 9.3 Vitals: Last Vital Signs Temp 97.9 F 10/20/19 08:00 Pulse 84 10/20/19 08:00 Resp 12 10/20/19 08:00 BP 141/73 10/20/19 08:00 Pulse Ox 96 10/20/19 08:00 Discharge Plan Discharge Patient Disposition: Xfer SNF Condition: Stable Prescriptions: New nitroglycerin 0.4 mg/hr Patch 24 Hour 1 patch transdermal Q24H Qty: 30 RF: 0 aspirin [Adult Low Dose Aspirin] 81 mg tablet,delayed release (DR/EC) 81 mg PO DAILY Qty: 30 RF: 0 amlodipine 10 mg Tablet 10 mg PO DAILY Qty: 30 RF: 0 Xarelto 10 mg Tablet 5 mg PO DAILY Qty: 30 RF: 0 lisinopril 10 mg Tablet 10 mg PO DAILY Qty: 30 RF: 0 cefuroxime axetil 250 mg tablet 250 mg PO BID 7 Days Qty: 14 RF: 0 Continued melatonin 1 mg Tablet Extended Release 3 mg PO BEDTIME RF: 0 MediHoney (honey) 80 % Gel 1 applic TOPICAL DAILY RF: 0 atorvastatin 10 mg Tablet 40 mg PO DAILY RF: 0 donepezil 5 mg Tablet 5 mg PO DAILY RF: 0 gabapentin 100 mg Capsule 100 mg PO TID RF: 0 polyethylene glycol 3350 17 gram Powder In Packet 17 g PO DAILY RF: 0 venlafaxine 37.5 mg Tablet 37.5 mg PO BID RF: 0 memantine 10 mg Tablet 10 mg PO BID RF: 0 Protonix [address] for susp in packet 40 mg PO DAILY Qty: 30 RF: 0 folic acid 1 mg tablet 1 mg PO DAILY Qty: 30 RF: 0 hydrocodone-acetaminophen 5-325 mg Tablet 1 tab PO Q6H PRN (Reason: Pain) RF: 0 Senna-S 8.6-50 mg Tablet 1 tab-cap PO BID RF: 0 alprazolam 0.25 mg Tablet 0.25 mg PO BID PRN (Reason: anxiety) RF: 0 Milk of Magnesia 400 mg/5 mL Suspension 30 ml PO DAILY PRN (Reason: Constipation) RF: 0 bisacodyl 10 mg Suppository 10 mg [place] DAILY PRN (Reason: Constipation) RF: 0 Enema 19-7 gram/118 mL Enema 118 ml [place] DAILY PRN (Reason: Constipation) RF: 0 Tylenol 325 mg Capsule 650 mg PO QID PRN (Reason: Pain) RF: 0 Pro-Stat AWC 17-100 gram-kcal/30 mL Liquid 30 ea PO BID RF: 0 Discontinued clopidogrel 75 mg tablet 75 mg PO DAILY RF: 0 hydrochlorothiazide 25 mg Tablet 12.5 mg PO DAILY RF: 0 lisinopril 20 mg Tablet 20 mg PO DAILY RF: 0 Tylenol Arthritis Pain 650 mg Tablet Extended Release 1,300 mg PO Q6H PRN (Reason: Pain) RF: 0 Discharge Orders: Discharge Order (Routine); Ordered 10/20/19 Ordered By: Adonay Ramirez Referrals: Zulema Lindo MD [Physician] - 6 Weeks Simon Garcia [Primary Care Provider] - 4-7 days (CBC, BMP in 1 week [facility]) Discharge Diet: Usual diet Discharge Activity: Increase activity as tolerated Discharge Attestations Time Spent in Discharge Care*: greater than 30 min Quality Metrics Clinical Quality Measures During this hospital stay, did patient experience: None Coding Level of Care Code 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
[2019-10-20] MEDS: venlafaxine 75 mg Tablet 37.5 MG PO (09:30)
[2019-10-20] MEDS: atorvastatin 40 mg Tablet PO (09:36)
[2019-10-20] MEDS: clopidogrel 75 mg Tablet PO (09:36)
[2019-10-20] MEDS: rivaroxaban 10 mg Tablet 5 MG PO (09:36)
[2019-10-20] MEDS: memantine 5 mg tablet 10 MG PO (09:37)
[2019-10-20] MEDS: lisinopril 10 mg Tablet PO (09:37)
[2019-10-20] MEDS: pantoprazole DR 40 mg Tablet PO (09:37)
[2019-10-20] MEDS: donepezil 5 MG Tablet PO (09:37)
[2019-10-20] MEDS: amlodipine 10 mg Tablet PO (09:38)
[2019-10-20] MEDS: sodium chloride 0.9% 1,000 ML 50 ML IV (09:40)
--- NOTE | 2019-10-20 10:01 | PM.PN ---
Subjective Subjective: Interval history: Please note that this note is for 10/19/2019 as I examined the patient and forgot to put the note. Medications: Reviewed: Yes Medication Review Details: Current Medications Acetaminophen (Tylenol) 650 mg PO Q6H PRN PRN Reason: Mild/Mod Pain Or Temp >/= 101 Hydrocodone Bitart/Acetaminophen ([place] 5-325 Mg) 1 tab PO Q4H PRN PRN Reason: MODERATE PAIN Last Admin: 10/17/19 22:41 Dose: 1 tab Documented by: Amlodipine Besylate (Norvasc) 10 mg PO DAILY [facility] Last Admin: 10/18/19 09:09 Dose: 10 mg Documented by: Atorvastatin Calcium (Lipitor) 40 mg PO DAILY [facility] Last Admin: 10/18/19 09:08 Dose: 40 mg Documented by: Bisacodyl (Bisac-Evac) 10 mg IN DAILY PRN PRN Reason: Constipation Clopidogrel Bisulfate (Plavix) 75 mg PO DAILY [facility] Last Admin: 10/18/19 09:09 Dose: 75 mg Documented by: Donepezil HCl (Aricept) 5 mg PO DAILY [facility] Last Admin: 10/18/19 09:08 Dose: 5 mg Documented by: Enoxaparin Sodium (Lovenox) 80 mg SUBCUT Q12H [facility] Last Admin: 10/17/19 23:58 Dose: 80 mg Documented by: Hydralazine HCl (Apresoline) 10 mg IVP Q4H PRN PRN Reason: SBP>170 Last Admin: 10/17/19 08:43 Dose: 10 mg Documented by: Ceftriaxone Sodium 1,000 mg/ (Sodium Chloride) 50 mls @ 100 mls/hr IV Q24H [facility]; Protocol Last Admin: 10/17/19 13:59 Dose: 100 mls/hr Documented by: Dextrose (D5w) 1,000 mls @ 30 mls/hr IV .Q24H [facility] Last Admin: 10/18/19 05:54 Dose: 30 mls/hr Documented by: Magnesium Hydroxide (Milk Of Magnesia) 30 ml PO DAILY PRN PRN Reason: Constipation Memantine (Namenda) 10 mg PO BID [facility] Last Admin: 10/18/19 09:08 Dose: 10 mg Documented by: Morphine Sulfate (Morphine) 2 mg IVP Q8H PRN PRN Reason: SEVERE PAIN Last Admin: 10/18/19 02:08 Dose: 2 mg Documented by: Naloxone HCl (Narcan) 0.1 mg IVP Q2M PRN PRN Reason: OPIATERV Nitroglycerin (Nitro-Dur 0.4 Mg Patch) 1 patch TRANSDERMA Q24H [facility] Last Admin: 10/17/19 19:19 Dose: Not Given Documented by: Ondansetron HCl (Zofran) 4 mg IVP Q6H PRN PRN Reason: NAUSEA AND VOMITING Pantoprazole Sodium (Protonix) 40 mg PO DAILY [facility] Last Admin: 10/18/19 09:09 Dose: 40 mg Documented by: Venlafaxine HCl (Effexor) 37.5 mg PO BID [facility] Last Admin: 10/18/19 09:08 Dose: 37.5 mg Documented by: Vitals/I&O/Wt Last Vital Signs Temp 97.9 F 10/20/19 08:00 Pulse 84 10/20/19 08:00 Resp 12 10/20/19 08:00 BP 141/73 10/20/19 08:00 Pulse Ox 96 10/20/19 08:00 10/19/19 10/20/19 10/20/19 22:59 06:59 14:59 Intake Total 240 / 3987.552 5799 / 1120 Output Total 650 / 1550 Balance -410 / 49.925 1120 / 1120 Physical Exam Narrative: EXAM NARRATIVE: GENERAL: Patient is confused NECK: No jugular vein distension. HEENT: No cyanosis. No icterus. No pallor. HEART: Regular S1 and S2. No murmur, rub or gallop. LUNGS: Clear to auscultate bilaterally. CENTRAL NERVOUS SYSTEM: Confused, patient has a underlying dementia motor and sensory positive EXTREMITIES: Lower extremities without edema bilaterally.Good Left foot anterior and posterior tibial dopplerable pulse Const: COMMON NORMALS: alert Resp: COMMON NORMALS: clear to auscultation bilaterally AUSCULTATION: clear to auscultation bilaterally Neuro: SENSORIUM/ORIENTATION: Yes alert Urinary Catheter Management^: Richardson: Cath Placed During This Visit: yes Reason for Continuing Indwelling Catheter: Acute Urinary Retention or Obstruction Urinary Catheter Date of Insertion: 10/15/19 Urinary Catheter Time of Insertion: 14:07 Data : 10/20/19 04:41 10/20/19 04:41 Micro: Microbiology 10/15/19 13:40 Urine Culture - Final Urine,Clean Catch Escherichia coli A&P Assessment and plan (1) Critical limb ischemia with history of revascularization of same extremity: Patient is status post balloon angioplasty of mid to distal left SFA, left tibioperoneal trunk left anterior tibial and left dorsalis pedis artery. Peripheral angiogram was performed which showed no flow below distal left SFA 2 stents in the mid and distal segment of left SFA were noted which were clotted. Continue anticoagulation for 3 months. Status: Acute (2) Acute renal failure (ARF): Continue IV hydration Status: Acute Qualifiers: Acute renal failure type: unspecified Qualified Code(s): N17.9 - Acute kidney failure, unspecified (3) Acute alteration in mental status: Patient continues to have the dementia with no significant change Status: Acute (4) Acute UTI: As per medicine Status: Acute (5) CVA (cerebral vascular accident): Continue to monitor patient has history of CVA Status: Acute Qualifiers: CVA mechanism: other Qualified Code(s): I63.89 - Other cerebral infarction (6) Hypertension: HOOD inhibitor was started. Status: Acute Qualifiers: Hypertension type: essential hypertension Qualified Code(s): I10 - Essential (primary) hypertension Additional A&P Information Based on angiogram findings, further management decisions will be made. May continue on the other current measures for the time being Attestations Medical Necessity Statement*: Require continuation of hospitalization for above defined care. 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
--- NOTE | 2019-10-20 10:01 | PC.SOCIAL ---
IM follow up given to patient no questions voiced plan is for her to DC today.
[2019-10-20 11:26] VITALS: BP 159/87; PULSE 78; RESP 18; TEMP 36.4; O2SAT 100
--- NOTE | 2019-10-20 12:00 | PC.NURSE ---
Report called to Gay Conti LPN at [facility]. Nurse verbalized understanding of information and did not have any further questions. Patient stable for transportation. Family has been notified of discharge.
[2019-10-20 12:02] VITALS: BP 159/87; PULSE 78; RESP 18; TEMP 36.4; O2SAT 100
--- NOTE | 2019-10-20 12:16 | PC.NURSE ---
EMS picked up patient. Patient stable at this time.
--- NOTE | 2019-10-20 19:48 | P.PN_ITS ---
Subjective Subjective: Interval history: Feeling much better foot color is good, patient has dopplerable anterior and posterior tibial pulse. Medications: Reviewed: Yes Medication Review Details: Current Medications Acetaminophen (Tylenol) 650 mg PO Q6H PRN PRN Reason: Mild/Mod Pain Or Temp >/= 101 Hydrocodone Bitart/Acetaminophen ([place] 5-325 Mg) 1 tab PO Q4H PRN PRN Reason: MODERATE PAIN Last Admin: 10/17/19 22:41 Dose: 1 tab Documented by: Amlodipine Besylate (Norvasc) 10 mg PO DAILY [facility] Last Admin: 10/18/19 09:09 Dose: 10 mg Documented by: Atorvastatin Calcium (Lipitor) 40 mg PO DAILY [facility] Last Admin: 10/18/19 09:08 Dose: 40 mg Documented by: Bisacodyl (Bisac-Evac) 10 mg DE DAILY PRN PRN Reason: Constipation Clopidogrel Bisulfate (Plavix) 75 mg PO DAILY [facility] Last Admin: 10/18/19 09:09 Dose: 75 mg Documented by: Donepezil HCl (Aricept) 5 mg PO DAILY [facility] Last Admin: 10/18/19 09:08 Dose: 5 mg Documented by: Enoxaparin Sodium (Lovenox) 80 mg SUBCUT Q12H [facility] Last Admin: 10/17/19 23:58 Dose: 80 mg Documented by: Hydralazine HCl (Apresoline) 10 mg IVP Q4H PRN PRN Reason: SBP>170 Last Admin: 10/17/19 08:43 Dose: 10 mg Documented by: Ceftriaxone Sodium 1,000 mg/ (Sodium Chloride) 50 mls @ 100 mls/hr IV Q24H [facility]; Protocol Last Admin: 10/17/19 13:59 Dose: 100 mls/hr Documented by: Dextrose (D5w) 1,000 mls @ 30 mls/hr IV .Q24H [facility] Last Admin: 10/18/19 05:54 Dose: 30 mls/hr Documented by: Magnesium Hydroxide (Milk Of Magnesia) 30 ml PO DAILY PRN PRN Reason: Constipation Memantine (Namenda) 10 mg PO BID [facility] Last Admin: 10/18/19 09:08 Dose: 10 mg Documented by: Morphine Sulfate (Morphine) 2 mg IVP Q8H PRN PRN Reason: SEVERE PAIN Last Admin: 07/05/20 02:08 Dose: 2 mg Documented by: Naloxone HCl (Narcan) 0.1 mg IVP Q2M PRN PRN Reason: OPIATERV Nitroglycerin (Nitro-Dur 0.4 Mg Patch) 1 patch TRANSDERMA Q24H [facility] Last Admin: 10/17/19 19:19 Dose: Not Given Documented by: Ondansetron HCl (Zofran) 4 mg IVP Q6H PRN PRN Reason: NAUSEA AND VOMITING Pantoprazole Sodium (Protonix) 40 mg PO DAILY [facility] Last Admin: 10/18/19 09:09 Dose: 40 mg Documented by: Venlafaxine HCl (Effexor) 37.5 mg PO BID [facility] Last Admin: 10/18/19 09:08 Dose: 37.5 mg Documented by: Vitals/I&O/Wt Last Vital Signs Temp 97.6 F 10/20/19 12:02 Pulse 78 10/20/19 12:02 Resp 18 10/20/19 12:02 BP 159/87 10/20/19 12:02 Pulse Ox 100 10/20/19 12:02 10/20/19 10/20/19 10/20/19 06:59 14:59 22:59 Intake Total 1120 / 1120 Output Total 1100 / 1100 Balance Physical Exam Narrative: EXAM NARRATIVE: GENERAL: Patient is confused NECK: No jugular vein distension. HEENT: No cyanosis. No icterus. No pallor. HEART: Regular S1 and S2. No murmur, rub or gallop. LUNGS: Clear to auscultate bilaterally. CENTRAL NERVOUS SYSTEM: Confused, patient has a underlying dementia motor and sensory positive EXTREMITIES: Lower extremities without edema bilaterally.Good Left foot anterior and posterior tibial dopplerable pulse Const: COMMON NORMALS: alert Resp: COMMON NORMALS: clear to auscultation bilaterally AUSCULTATION: clear to auscultation bilaterally Neuro: SENSORIUM/ORIENTATION: Yes alert Urinary Catheter Management^: Richardson: Cath Placed During This Visit: yes, but has since been removed by the nurse Reason for Continuing Indwelling Catheter: Not indwelling catheter Urinary Catheter Date of Insertion: 10/15/19 Urinary Catheter Time of Insertion: 14:07 Date Urinary Catheter Removed: 10/20/19 Time Urinary Catheter Discontinued: 11:19 Data : 10/20/19 04:41 10/20/19 04:41 A&P Assessment and plan (1) Critical limb ischemia with history of revascularization of same extremity: Patient is status post balloon angioplasty of mid to distal left SFA, left tibioperoneal trunk left anterior tibial and left dorsalis pedis artery. Peripheral angiogram was performed which showed no flow below distal left SFA 2 stents in the mid and distal segment of left SFA were noted which were clotted.Continue current regimen Status: Acute (2) Acute renal failure (ARF): Continue IV hydration Status: Acute Qualifiers: Acute renal failure type: unspecified Qualified Code(s): N17.9 - Acute kidney failure, unspecified (3) Acute alteration in mental status: Baseline stable Status: Acute (4) Acute UTI: resolved Status: Acute (5) CVA (cerebral vascular accident): Continue to monitor patient has history of CVA Status: Acute Qualifiers: CVA mechanism: other Qualified Code(s): I63.89 - Other cerebral infarction (6) Hypertension: stable Status: Acute Qualifiers: Hypertension type: essential hypertension Qualified Code(s): I10 - Essential (primary) hypertension Additional A&P Information Based on angiogram findings, further management decisions will be made. 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
== END 2019-10-20 12:17 | disposition skilled nursing facility (03) | DRG 252 ==
LOC: ER 15:34 → CSU 16:27 → ICU 10-18 12:59 → CSU 10-19 21:13
PROVIDERS: Emergency Medicine; Internal Medicine Cardiovascular Disease; Student in an Organized Health Care Education/Training Program; Admitting Provider Student in an Organized Health Care Education/Training Program; PCP Family Medicine; Visit Provider Internal Medicine
PROC: 047 Lower Arteries, Dilation (ICD-10-PCS; principal; 2019-10-18 10:00)
PROC: 047 Lower Arteries, Dilation (ICD-10-PCS; 2019-10-18 10:00)
DX: I70.50 Unspecified atherosclerosis of nonautologous biological bypass graft(s) of the extremities (principal); G93.41 Metabolic encephalopathy; N39.0 Urinary tract infection, site not specified; E87.0 Hyperosmolality and hypernatremia; J44.9 Chronic obstructive pulmonary disease, unspecified; G30.9 Alzheimer's disease, unspecified; F02.80 Dementia in other diseases classified elsewhere, unspecified severity, without behavioral disturbance, psychotic disturbance, mood disturbance, and anxiety; I10 Essential (primary) hypertension
CPT/HCPCS: 12345; 36415; 36416; 37224; 37232; 51702; 70450; 71045; 75625; 75635; 75716; 80048; 80053; 81001; 82550; 82962; 83605; 83735; 84295; 84439; 84443; 84481; 84484; 85025; 85610; 85730; 87040; 87077; 87086; 87186; 92523; 92610; 93005; 93926; 93971; 96372; 96375; 99283; C1725; C1769; C1887; C1894; J0330; J0360; J0696; J1644; J1650; J2001; J2270; J2405; J2704; J3010; J3490; J7030; Q0163; Q9967

== ENCOUNTER 2020-02-19 16:12 | Inpatient (IN) | payer MEDICARE, MEDICAID, SELFPAY ==
[2020-02-19 16:22] VITALS: BP 149/66; PULSE 86; RESP 16; TEMP 36.4; O2SAT 95; BMI 22.6
--- NOTE | 2020-02-19 16:35 | ECG_ITS ---
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
--- NOTE | 2020-02-19 16:35 | XR_ITS ---
WS: [id number] XR chest 1V portable [id number] REASON FOR EXAM: COVID FINDINGS: Compared to the chest x-ray of 10/16/2019, a reticular like infiltrative pattern has developed superimp osed on the chronic interstitial pattern in the right lower lung. No other new finding or significant interval change is identified. XR/XR chest 1V portable [id number] IMPRESSION: Interval development of a nonspecific reticular infiltrative pattern in the rig ht lower lung. Abnormality is compatible with subacute or acute pneumonitis.
[2020-02-19 17:07] LABS: Hemoglobin 9.6 g/dL (11.5-15.3); Lymphocytes # 0.4 10^3/uL (0.8-4.8); Lymphocytes % 4.4 %; Mean Corpuscular HGB Conc 28.2 g/dL (30.0-36.0); Mean Corpuscular Hemoglobin 28.7 pg (28.0-34.0); Mean Corpuscular Volume 101.8 fL (81-99); Mean Platelet Volume 10.1 fL (7.4-10.4); Monocytes # 0.2 10^3/uL (0.2-0.9); Monocytes % 2.9 %; Neutrophils # 7.33 10^3/uL (1.8-7.7); Neutrophils % 92.3 %; Nucleated Red Blood Cells % 0 %; Platelet Count 279 10^3/cmm (130-400); Red Blood Count 3.34 10^6/uL (4.1-5.3); Red Cell Distribution Width 13.4 % (12.1-15.1); White Blood Count 7.9 10^3/uL (4.0-10.0)
[2020-02-19 17:14] LABS: ABG PCO2 40.2 mmHg (35-45); ABG PH Result 7.32 (7.35-7.45); Arterial Blood Gas Hematocrit 29.9 % (37-47); Base Excess ABG -5.1 mmol/L (-2.0-2.0); Blood Gas Operator Identificat AMH; Blood Gas Sample Site Brachial, left; Blood Gas Sample Type Arterial; HCO3 ABG 20.6 mmol/L (22-26); Oxygen Device ROOM AIR; PO2 ABG 70.7 mmHg (80.0-100.0)
[2020-02-19 17:51] LABS: Ketone (Acetest) Serum Negative (Negative)
[2020-02-19 17:56] LABS: Lactic Sepsis W/Reflex 2.4 mmol/L (0.5-2.2)
[2020-02-19 17:58] LABS: Glucose Point of Care 428 mg/dL (70-110)
--- NOTE | 2020-02-19 17:58 | W.ED.RECABL ---
Documented by User: Donna Simon MD 02/28/20 17:27 HPI - Recheck/Abnormal Lab/Rx General: Chief Complaint: Recheck/Abnormal Lab/Rx Stated Complaint: LOW O2 SATS Time Seen by Provider: 02/19/20 16:23 History of Present Illness: HPI narrative: This patient is a 79-year-old female who presents today with high blood sugar. She is a group home resident and is Covid positive. She is on dexamethasone for the Covid. Before she was sent down today she was given an extra 10 units of insulin. Her blood sugar for EMS was over 500. She denies any complaints and does not know why she is here. complaint: abnormal lab (Sugar) Review of Systems General: Reports: 10 or more systems reviewed and unremarkable except in HPI and below Const: Denies: fever(s), chills, fatigue or malaise Eyes: Denies: change in vision ENMT: Denies: odynophagia Card: Denies: chest pain or swelling of feet/ankles Resp: Denies: dyspnea, productive cough or non-productive cough GI: Denies: abdominal pain, nausea or vomiting : Denies: flank pain or difficulty voiding Musc: Denies: neck pain or back pain Skin/Breast: Denies: rash Neuro: Denies: headache(s), numbness in extremities or weakness in extremities Lloyd/Lymph: Denies: easy bruising or easy bleeding PFSH ED PFSH: Medical History (Updated 02/23/20 @ 00:00 by ) Acute UTI Alzheimer's dementia Anemia COPD (chronic obstructive pulmonary disease) CVA (cerebral vascular accident) Depression DVT (deep venous thrombosis) Hyperlipidemia Hypertension Peripheral vascular disease Tobacco abuse, in remission Surgical History History of dilatation and curettage Family History Denies family history of CAD (coronary artery disease) Stroke Social History Smoking and tobacco status: former smoker Quit status (tobacco): has quit using tobacco Year quit tobacco: February 2019 Alcohol intake: never Housing: [facility] Physical Exam Const: COMMON NORMALS: no acute distress and alert GENERAL APPEARANCE: cooperative and comfortable HENMT: HEAD & SCALP: normal to inspection FACE & SINUS: normal facial exam Eye: GENERAL EYE: appearance normal, both eyes and all related structures Neck/C-Spine: COMMON NORMALS: supple, no meningeal signs and no JVD Chest: COMMONS NORMALS: normal inspection of the chest Resp: COMMON NORMALS: normal respiratory effort, No use of accessory muscles and clear to auscultation bilaterally AUSCULTATION: clear to auscultation bilaterally Cardio: COMMON NORMALS: no JVD, regular rate, regular rhythm and No murmurs present (Cardio) RATE: regular rate RHYTHM: regular rhythm GI: COMMON NORMALS: Normal to inspection, nondistended, normoactive bowel sounds present, Soft to palpation and non-tender INSPECTION: Yes normal to inspection AUSCULTATION: Yes normoactive bowel sounds PALPATION: Yes Soft to palpation Back/Pelvis: COMMON NORMALS: thoracic and lumbar spine normal to inspection Extremity: COMMON NORMALS: normal to inspection Neuro: COMMON NORMALS: moves all extremities, no focal motor deficits and no sensory deficits noted SENSORIUM/ORIENTATION: Yes alert MENINGEAL SIGNS: Yes no meningeal signs Psych: COMMON NORMALS: mental status grossly normal, cooperative and normal affect Skin: COMMON NORMALS: no rashes or lesions noted and turgor normal GENERAL SKIN EXAM: no rashes or lesions noted and turgor normal Course Vital Signs: Vital signs: Vital Signs Temperature 97.7 F 02/22/20 17:14 Pulse Rate 99 02/22/20 17:14 Respiratory Rate 16 02/22/20 17:14 Blood Pressure 161/88 02/22/20 17:14 Pulse Oximetry 98 02/22/20 17:14 MDM - Recheck/Abnormal Lab/Rx Lab Data: Labs: Lab Results 02/19/20 02/19/20 02/19/20 Range/Units 16:50 16:50 16:50 WBC 7.9 (4.0-10.0) 10^3/ uL RBC 3.34 L (4.1-5.3) 10^6/u L Hgb 9.6 L (11.5-15.3) g/dL Hct 34.0 L (37.0-47.0) % MCV 101.8 H (81-99) fL MCH 28.7 (28.0-34.0) pg MCHC 28.2 L (30.0-36.0) g/dL RDW 13.4 (12.1-15.1) % Plt Count 279 (130-400) 10^3/c mm MPV 10.1 (7.4-10.4) fL Neut % (Auto) 92.3 % Lymph % (Auto) 4.4 % [place] % (Auto) 2.9 % Eos % (Auto) 0.0 % Baso % (Auto) 0.0 % Neut # (Auto) 7.33 (1.8-7.7) 10^3/u L Lymph # (Auto) 0.4 L (0.8-4.8) 10^3/u L [place] # (Auto) 0.2 (0.2-0.9) 10^3/u L Eos # (Auto) 0.0 (0.0-0.8) 10^3/u L Baso # (Auto) 0.0 (0.0-0.1) 10^3/u L Nucleated RBC % (a uto) 0 % Nucleated RBCs # 0.0 /100WBC PT (12.1-14.9) SECO NDS INR (0.8-1.2) Fibrinogen (174-498) mg/dL D-Dimer (0-0.59) ug/mIFE U Specimen Type Sample Site ABG pH (7.35-7.45) ABG pCO2 (35-45) mmHg ABG pO2 (80.0-100.0) mmH g ABG HCO3 (22-26) mmol/L ABG Base Excess (-2.0-2.0) mmol/ L Roni Test Hematocrit (37-47) % O2 Delivery Device FiO2 % Agricultural Researcher ID Sodium 144 (136-145) mmol/L Potassium 5.4 H (3.5-5.1) mmol/L Chloride 111 H (98-107) mmol/L Carbon Dioxide 20 L (22-29) mmol/L Anion Gap 18.4 (5-19) BUN 131 H* D (8-23) mg/dL Creatinine 2.0 H (0.5-0.9) mg/dL GFR Calculation Not Reportable Glucose 508 H* (65-115) mg/dL POC Glucose (70-110) mg/dL Calculated Osmolal ity 363 H (285-295) mOsm/k g Lactic Acid 2.4 H (0.5-2.2) mmol/L Lactic Acid (Sepsi s) (0.5-2.2) mmol/L Calcium 9.1 (8.5-10.5) mg/dL Phosphorus (2.5-4.5) mg/dL Magnesium (1.7-2.3) mg/dL Ferritin 907 H (15-150) ng/mL Total Bilirubin 0.2 (0.15-1.2) mg/dL AST 28 (0-32) U/L ALT 24 (0-33) U/L Alkaline Phosphata se 81 (35-105) IU/L Lactate Dehydrogen ase 218 H (135-214) U/L C-Reactive Protein 52.7 H (0.0-4.9) mg/L NT-Pro-B Natriuret Pep 239 (0-450) pg/mL Total Protein 6.8 (6.6-8.7) g/dL Albumin 3.2 L (3.5-5.2) g/dL Globulin 3.6 (1.3-4.6) g/dL Triglycerides (0-150) mg/dL Cholesterol (0-200) mg/dL LDL Cholesterol Di rect (0-100) mg/dL LDL Cholesterol, C alc HDL Cholesterol (60-100) mg/dL LDL/HDL Ratio Cholesterol/HDL Ra laine (0.0-4.40) mg/dL Procalcitonin 0.18 (0-0.5) ng/mL TSH (0.27-4.20) uIU/ mL Free T4 (0.82-1.77) ng/d L Free T3 (2.0-4.4) PG/ML Serum Ketones Negative (Negative) 02/19/20 02/19/20 02/19/20 Range/Units 16:53 17:33 17:55 WBC (4.0-10.0) 10^3/ uL RBC (4.1-5.3) 10^6/u L Hgb (11.5-15.3) g/dL Hct (37.0-47.0) % MCV (81-99) fL MCH (28.0-34.0) pg MCHC (30.0-36.0) g/dL RDW (12.1-15.1) % Plt Count (130-400) 10^3/c mm MPV (7.4-10.4) fL Neut % (Auto) % Lymph % (Auto) % [place] % (Auto) % Eos % (Auto) % Baso % (Auto) % Neut # (Auto) (1.8-7.7) 10^3/u L Lymph # (Auto) (0.8-4.8) 10^3/u L [place] # (Auto) (0.2-0.9) 10^3/u L Eos # (Auto) (0.0-0.8) 10^3/u L Baso # (Auto) (0.0-0.1) 10^3/u L Nucleated RBC % (a uto) % Nucleated RBCs # /100WBC PT 15.40 H (12.1-14.9) SECO NDS INR 1.18 (0.8-1.2) Fibrinogen 613 H (174-498) mg/dL D-Dimer 1.03 H (0-0.59) ug/mIFE U Specimen Type Arterial Sample Site Brachial, left ABG pH 7.32 L (7.35-7.45) ABG pCO2 40.2 (35-45) mmHg ABG pO2 70.7 L (80.0-100.0) mmH g ABG HCO3 20.6 L (22-26) mmol/L ABG Base Excess -5.1 L (-2.0-2.0) mmol/ L Roni Test N/a Hematocrit 29.9 L (37-47) % O2 Delivery Device Room air FiO2 21.0 % Agricultural Researcher ID Amh Sodium (136-145) mmol/L Potassium (3.5-5.1) mmol/L Chloride (98-107) mmol/L Carbon Dioxide (22-29) mmol/L Anion Gap (5-19) BUN (8-23) mg/dL Creatinine (0.5-0.9) mg/dL GFR Calculation Glucose (65-115) mg/dL POC Glucose 428 (70-110) mg/dL Calculated Osmolal ity (285-295) mOsm/k g Lactic Acid (0.5-2.2) mmol/L Lactic Acid (Sepsi s) (0.5-2.2) mmol/L Calcium (8.5-10.5) mg/dL Phosphorus (2.5-4.5) mg/dL Magnesium (1.7-2.3) mg/dL Ferritin (15-150) ng/mL Total Bilirubin (0.15-1.2) mg/dL AST (0-32) U/L ALT (0-33) U/L Alkaline Phosphata se (35-105) IU/L Lactate Dehydrogen ase (135-214) U/L C-Reactive Protein (0.0-4.9) mg/L NT-Pro-B Natriuret Pep (0-450) pg/mL Total Protein (6.6-8.7) g/dL Albumin (3.5-5.2) g/dL Globulin (1.3-4.6) g/dL Triglycerides (0-150) mg/dL Cholesterol (0-200) mg/dL LDL Cholesterol Di rect (0-100) mg/dL LDL Cholesterol, C alc HDL Cholesterol (60-100) mg/dL LDL/HDL Ratio Cholesterol/HDL Ra laine (0.0-4.40) mg/dL Procalcitonin (0-0.5) ng/mL TSH (0.27-4.20) uIU/ mL Free T4 (0.82-1.77) ng/d L Free T3 (2.0-4.4) PG/ML Serum Ketones (Negative) 02/19/20 02/19/20 02/20/20 Range/Units 20:17 22:29 06:55 WBC (4.0-10.0) 10^3/ uL RBC (4.1-5.3) 10^6/u L Hgb (11.5-15.3) g/dL Hct (37.0-47.0) % MCV (81-99) fL MCH (28.0-34.0) pg MCHC (30.0-36.0) g/dL RDW (12.1-15.1) % Plt Count (130-400) 10^3/c mm MPV (7.4-10.4) fL Neut % (Auto) % Lymph % (Auto) % [place] % (Auto) % Eos % (Auto) % Baso % (Auto) % Neut # (Auto) (1.8-7.7) 10^3/u L Lymph # (Auto) (0.8-4.8) 10^3/u L [place] # (Auto) (0.2-0.9) 10^3/u L Eos # (Auto) (0.0-0.8) 10^3/u L Baso # (Auto) (0.0-0.1) 10^3/u L Nucleated RBC % (a uto) % Nucleated RBCs # /100WBC PT (12.1-14.9) SECO NDS INR (0.8-1.2) Fibrinogen (174-498) mg/dL D-Dimer (0-0.59) ug/mIFE U Specimen Type Sample Site ABG pH (7.35-7.45) ABG pCO2 (35-45) mmHg ABG pO2 (80.0-100.0) mmH g ABG HCO3 (22-26) mmol/L ABG Base Excess (-2.0-2.0) mmol/ L Roni Test Hematocrit (37-47) % O2 Delivery Device FiO2 % Agricultural Researcher ID Sodium (136-145) mmol/L Potassium (3.5-5.1) mmol/L Chloride (98-107) mmol/L Carbon Dioxide (22-29) mmol/L Anion Gap (5-19) BUN (8-23) mg/dL Creatinine (0.5-0.9) mg/dL GFR Calculation Glucose (65-115) mg/dL POC Glucose 253 162 (70-110) mg/dL Calculated Osmolal ity (285-295) mOsm/k g Lactic Acid (0.5-2.2) mmol/L Lactic Acid (Sepsi s) 1.4 (0.5-2.2) mmol/L Calcium (8.5-10.5) mg/dL Phosphorus (2.5-4.5) mg/dL Magnesium (1.7-2.3) mg/dL Ferritin (15-150) ng/mL Total Bilirubin (0.15-1.2) mg/dL AST (0-32) U/L ALT (0-33) U/L Alkaline Phosphata se (35-105) IU/L Lactate Dehydrogen ase (135-214) U/L C-Reactive Protein (0.0-4.9) mg/L NT-Pro-B Natriuret Pep (0-450) pg/mL Total Protein (6.6-8.7) g/dL Albumin (3.5-5.2) g/dL Globulin (1.3-4.6) g/dL Triglycerides (0-150) mg/dL Cholesterol (0-200) mg/dL LDL Cholesterol Di rect (0-100) mg/dL LDL Cholesterol, C alc HDL Cholesterol (60-100) mg/dL LDL/HDL Ratio Cholesterol/HDL Ra laine (0.0-4.40) mg/dL Procalcitonin (0-0.5) ng/mL TSH (0.27-4.20) uIU/ mL Free T4 (0.82-1.77) ng/d L Free T3 (2.0-4.4) PG/ML Serum Ketones (Negative) 02/20/20 02/20/20 02/20/20 Range/Units 10:55 16:29 21:51 WBC (4.0-10.0) 10^3/ uL RBC (4.1-5.3) 10^6/u L Hgb (11.5-15.3) g/dL Hct (37.0-47.0) % MCV (81-99) fL MCH (28.0-34.0) pg MCHC (30.0-36.0) g/dL RDW (12.1-15.1) % Plt Count (130-400) 10^3/c mm MPV (7.4-10.4) fL Neut % (Auto) % Lymph % (Auto) % [place] % (Auto) % Eos % (Auto) % Baso % (Auto) % Neut # (Auto) (1.8-7.7) 10^3/u L Lymph # (Auto) (0.8-4.8) 10^3/u L [place] # (Auto) (0.2-0.9) 10^3/u L Eos # (Auto) (0.0-0.8) 10^3/u L Baso # (Auto) (0.0-0.1) 10^3/u L Nucleated RBC % (a uto) % Nucleated RBCs # /100WBC PT (12.1-14.9) SECO NDS INR (0.8-1.2) Fibrinogen (174-498) mg/dL D-Dimer (0-0.59) ug/mIFE U Specimen Type Sample Site ABG pH (7.35-7.45) ABG pCO2 (35-45) mmHg ABG pO2 (80.0-100.0) mmH g ABG HCO3 (22-26) mmol/L ABG Base Excess (-2.0-2.0) mmol/ L Roni Test Hematocrit (37-47) % O2 Delivery Device FiO2 % Agricultural Researcher ID Sodium (136-145) mmol/L Potassium (3.5-5.1) mmol/L Chloride (98-107) mmol/L Carbon Dioxide (22-29) mmol/L Anion Gap (5-19) BUN (8-23) mg/dL Creatinine (0.5-0.9) mg/dL GFR Calculation Glucose (65-115) mg/dL POC Glucose 196 78 221 (70-110) mg/dL Calculated Osmolal ity (285-295) mOsm/k g Lactic Acid (0.5-2.2) mmol/L Lactic Acid (Sepsi s) (0.5-2.2) mmol/L Calcium (8.5-10.5) mg/dL Phosphorus (2.5-4.5) mg/dL Magnesium (1.7-2.3) mg/dL Ferritin (15-150) ng/mL Total Bilirubin (0.15-1.2) mg/dL AST (0-32) U/L ALT (0-33) U/L Alkaline Phosphata se (35-105) IU/L Lactate Dehydrogen ase (135-214) U/L C-Reactive Protein (0.0-4.9) mg/L NT-Pro-B Natriuret Pep (0-450) pg/mL Total Protein (6.6-8.7) g/dL Albumin (3.5-5.2) g/dL Globulin (1.3-4.6) g/dL Triglycerides (0-150) mg/dL Cholesterol (0-200) mg/dL LDL Cholesterol Di rect (0-100) mg/dL LDL Cholesterol, C alc HDL Cholesterol (60-100) mg/dL LDL/HDL Ratio Cholesterol/HDL Ra laine (0.0-4.40) mg/dL Procalcitonin (0-0.5) ng/mL TSH (0.27-4.20) uIU/ mL Free T4 (0.82-1.77) ng/d L Free T3 (2.0-4.4) PG/ML Serum Ketones (Negative) 02/21/20 02/21/20 02/21/20 Range/Units 04:55 04:55 04:55 WBC 8.3 (4.0-10.0) 10^3/ uL RBC 3.48 L (4.1-5.3) 10^6/u L Hgb 10.0 L (11.5-15.3) g/dL Hct 33.1 L (37.0-47.0) % MCV 95.1 (81-99) fL MCH 28.7 (28.0-34.0) pg MCHC 30.2 (30.0-36.0) g/dL RDW 13.0 (12.1-15.1) % Plt Count 301 (130-400) 10^3/c mm MPV 9.7 (7.4-10.4) fL Neut % (Auto) 77.1 % Lymph % (Auto) 17.8 % [place] % (Auto) 4.3 % Eos % (Auto) 0.1 % Baso % (Auto) 0.1 % Neut # (Auto) 6.41 (1.8-7.7) 10^3/u L Lymph # (Auto) 1.5 (0.8-4.8) 10^3/u L [place] # (Auto) 0.4 (0.2-0.9) 10^3/u L Eos # (Auto) 0.0 (0.0-0.8) 10^3/u L Baso # (Auto) 0.0 (0.0-0.1) 10^3/u L Nucleated RBC % (a uto) 0 % Nucleated RBCs # 0.0 /100WBC PT (12.1-14.9) SECO NDS INR (0.8-1.2) Fibrinogen (174-498) mg/dL D-Dimer (0-0.59) ug/mIFE U Specimen Type Sample Site ABG pH (7.35-7.45) ABG pCO2 (35-45) mmHg ABG pO2 (80.0-100.0) mmH g ABG HCO3 (22-26) mmol/L ABG Base Excess (-2.0-2.0) mmol/ L Roni Test Hematocrit (37-47) % O2 Delivery Device FiO2 % Agricultural Researcher ID Sodium 148 H (136-145) mmol/L Potassium 4.3 (3.5-5.1) mmol/L Chloride 114 H (98-107) mmol/L Carbon Dioxide 26 (22-29) mmol/L Anion Gap 12.3 (5-19) BUN 48 H (8-23) mg/dL Creatinine 0.9 (0.5-0.9) mg/dL GFR Calculation Not Reportable Glucose 173 H (65-115) mg/dL POC Glucose (70-110) mg/dL Calculated Osmolal ity 323 H (285-295) mOsm/k g Lactic Acid 0.9 (0.5-2.2) mmol/L Lactic Acid (Sepsi s) (0.5-2.2) mmol/L Calcium 9.7 (8.5-10.5) mg/dL Phosphorus 2.2 L (2.5-4.5) mg/dL Magnesium 2.4 H (1.7-2.3) mg/dL Ferritin (15-150) ng/mL Total Bilirubin 0.3 (0.15-1.2) mg/dL AST 23 (0-32) U/L ALT 23 (0-33) U/L Alkaline Phosphata se 87 (35-105) IU/L Lactate Dehydrogen ase (135-214) U/L C-Reactive Protein (0.0-4.9) mg/L NT-Pro-B Natriuret Pep (0-450) pg/mL Total Protein 7.0 (6.6-8.7) g/dL Albumin 3.4 L (3.5-5.2) g/dL Globulin 3.6 (1.3-4.6) g/dL Triglycerides (0-150) mg/dL Cholesterol (0-200) mg/dL LDL Cholesterol Di rect (0-100) mg/dL LDL Cholesterol, C alc HDL Cholesterol (60-100) mg/dL LDL/HDL Ratio Cholesterol/HDL Ra laine (0.0-4.40) mg/dL Procalcitonin (0-0.5) ng/mL TSH 0.01 L (0.27-4.20) uIU/ mL Free T4 (0.82-1.77) ng/d L Free T3 (2.0-4.4) PG/ML Serum Ketones (Negative) 02/21/20 02/21/20 02/21/20 Range/Units 04:55 04:55 06:23 WBC (4.0-10.0) 10^3/ uL RBC (4.1-5.3) 10^6/u L Hgb (11.5-15.3) g/dL Hct (37.0-47.0) % MCV (81-99) fL MCH (28.0-34.0) pg MCHC (30.0-36.0) g/dL RDW (12.1-15.1) % Plt Count (130-400) 10^3/c mm MPV (7.4-10.4) fL Neut % (Auto) % Lymph % (Auto) % [place] % (Auto) % Eos % (Auto) % Baso % (Auto) % Neut # (Auto) (1.8-7.7) 10^3/u L Lymph # (Auto) (0.8-4.8) 10^3/u L [place] # (Auto) (0.2-0.9) 10^3/u L Eos # (Auto) (0.0-0.8) 10^3/u L Baso # (Auto) (0.0-0.1) 10^3/u L Nucleated RBC % (a uto) % Nucleated RBCs # /100WBC PT (12.1-14.9) SECO NDS INR (0.8-1.2) Fibrinogen (174-498) mg/dL D-Dimer (0-0.59) ug/mIFE U Specimen Type Sample Site ABG pH (7.35-7.45) ABG pCO2 (35-45) mmHg ABG pO2 (80.0-100.0) mmH g ABG HCO3 (22-26) mmol/L ABG Base Excess (-2.0-2.0) mmol/ L Roni Test Hematocrit (37-47) % O2 Delivery Device FiO2 % Agricultural Researcher ID Sodium (136-145) mmol/L Potassium (3.5-5.1) mmol/L Chloride (98-107) mmol/L Carbon Dioxide (22-29) mmol/L Anion Gap (5-19) BUN (8-23) mg/dL Creatinine (0.5-0.9) mg/dL GFR Calculation Glucose (65-115) mg/dL POC Glucose 128 (70-110) mg/dL Calculated Osmolal ity (285-295) mOsm/k g Lactic Acid (0.5-2.2) mmol/L Lactic Acid (Sepsi s) (0.5-2.2) mmol/L Calcium (8.5-10.5) mg/dL Phosphorus (2.5-4.5) mg/dL Magnesium (1.7-2.3) mg/dL Ferritin (15-150) ng/mL Total Bilirubin (0.15-1.2) mg/dL AST (0-32) U/L ALT (0-33) U/L Alkaline Phosphata se (35-105) IU/L Lactate Dehydrogen ase (135-214) U/L C-Reactive Protein (0.0-4.9) mg/L NT-Pro-B Natriuret Pep (0-450) pg/mL Total Protein (6.6-8.7) g/dL Albumin (3.5-5.2) g/dL Globulin (1.3-4.6) g/dL Triglycerides 408 H (0-150) mg/dL Cholesterol 168 (0-200) mg/dL LDL Cholesterol Di rect 81 (0-100) mg/dL LDL Cholesterol, C alc Not Reportable HDL Cholesterol 31 L (60-100) mg/dL LDL/HDL Ratio Not Reportable Cholesterol/HDL Ra laine 5.42 H (0.0-4.40) mg/dL Procalcitonin 0.07 (0-0.5) ng/mL TSH (0.27-4.20) uIU/ mL Free T4 1.88 H (0.82-1.77) ng/d L Free T3 2.7 (2.0-4.4) PG/ML Serum Ketones (Negative) Discharge Plan Discharge Patient Disposition: Placed in Observation Admit Provider: Shay Grubbs Clinical Impression: Acute renal failure Discharge Diet: As Directed Discharge Activity: Resume usual activity and As per PT/OT instructions Coding Level of Care Code 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 Fwd Exam Comprehensive Documented by User: Raymundo Colby DO 02/20/20 00:22 HPI - Recheck/Abnormal Lab/Rx General: Chief Complaint: Recheck/Abnormal Lab/Rx Stated Complaint: LOW O2 SATS Time Seen by Provider: 02/19/20 16:23 [facility] ED PFSH: Medical History (Updated 02/23/20 @ 00:00 by ) Acute UTI Alzheimer's dementia Anemia COPD (chronic obstructive pulmonary disease) CVA (cerebral vascular accident) Depression DVT (deep venous thrombosis) Hyperlipidemia Hypertension Peripheral vascular disease Tobacco abuse, in remission Surgical History History of dilatation and curettage Family History Denies family history of CAD (coronary artery disease) Stroke Social History Smoking and tobacco status: former smoker Quit status (tobacco): has quit using tobacco Year quit tobacco: February 2019 Alcohol intake: never Housing: [facility] Course Vital Signs: Vital signs: Vital Signs Temperature 97.7 F 02/22/20 17:14 Pulse Rate 99 02/22/20 17:14 Respiratory Rate 16 02/22/20 17:14 Blood Pressure 161/88 02/22/20 17:14 Pulse Oximetry 98 02/22/20 17:14 MDM - Recheck/Abnormal Lab/Rx MDM Narrative: Medical decision making narrative: 79-year-old female who tested positive for Covid a couple of weeks ago. She is a group home patient. She presents with high blood sugar and some mild alteration in mental status. She was checked out to me by Dr. Simon at shift change. She has been on dexamethasone, for her Covid. Her blood sugar came down to 250 after insulin and fluid. She was mildly hyperkalemic, with an elevated BUN and creatinine. Her BUN is significantly elevated at 131. She will come in for IV fluid support, as this is likely dehydration, and further work-up. Lab Data: Labs: Lab Results 02/19/20 02/19/20 02/19/20 Range/Units 16:50 16:50 16:50 WBC 7.9 (4.0-10.0) 10^3/ uL RBC 3.34 L (4.1-5.3) 10^6/u L Hgb 9.6 L (11.5-15.3) g/dL Hct 34.0 L (37.0-47.0) % MCV 101.8 H (81-99) fL MCH 28.7 (28.0-34.0) pg MCHC 28.2 L (30.0-36.0) g/dL RDW 13.4 (12.1-15.1) % Plt Count 279 (130-400) 10^3/c mm MPV 10.1 (7.4-10.4) fL Neut % (Auto) 92.3 % Lymph % (Auto) 4.4 % [place] % (Auto) 2.9 % Eos % (Auto) 0.0 % Baso % (Auto) 0.0 % Neut # (Auto) 7.33 (1.8-7.7) 10^3/u L Lymph # (Auto) 0.4 L (0.8-4.8) 10^3/u L [place] # (Auto) 0.2 (0.2-0.9) 10^3/u L Eos # (Auto) 0.0 (0.0-0.8) 10^3/u L Baso # (Auto) 0.0 (0.0-0.1) 10^3/u L Nucleated RBC % (a uto) 0 % Nucleated RBCs # 0.0 /100WBC PT (12.1-14.9) SECO NDS INR (0.8-1.2) Fibrinogen (174-498) mg/dL D-Dimer (0-0.59) ug/mIFE U Specimen Type Sample Site ABG pH (7.35-7.45) ABG pCO2 (35-45) mmHg ABG pO2 (80.0-100.0) mmH g ABG HCO3 (22-26) mmol/L ABG Base Excess (-2.0-2.0) mmol/ L Roni Test Hematocrit (37-47) % O2 Delivery Device FiO2 % Agricultural Researcher ID Sodium 144 (136-145) mmol/L Potassium 5.4 H (3.5-5.1) mmol/L Chloride 111 H (98-107) mmol/L Carbon Dioxide 20 L (22-29) mmol/L Anion Gap 18.4 (5-19) BUN 131 H* D (8-23) mg/dL Creatinine 2.0 H (0.5-0.9) mg/dL GFR Calculation Not Reportable Glucose 508 H* (65-115) mg/dL POC Glucose (70-110) mg/dL Calculated Osmolal ity 363 H (285-295) mOsm/k g Lactic Acid 2.4 H (0.5-2.2) mmol/L Lactic Acid (Sepsi s) (0.5-2.2) mmol/L Calcium 9.1 (8.5-10.5) mg/dL Phosphorus (2.5-4.5) mg/dL Magnesium (1.7-2.3) mg/dL Ferritin 907 H (15-150) ng/mL Total Bilirubin 0.2 (0.15-1.2) mg/dL AST 28 (0-32) U/L ALT 24 (0-33) U/L Alkaline Phosphata se 81 (35-105) IU/L Lactate Dehydrogen ase 218 H (135-214) U/L C-Reactive Protein 52.7 H (0.0-4.9) mg/L NT-Pro-B Natriuret Pep 239 (0-450) pg/mL Total Protein 6.8 (6.6-8.7) g/dL Albumin 3.2 L (3.5-5.2) g/dL Globulin 3.6 (1.3-4.6) g/dL Triglycerides (0-150) mg/dL Cholesterol (0-200) mg/dL LDL Cholesterol Di rect (0-100) mg/dL LDL Cholesterol, C alc HDL Cholesterol (60-100) mg/dL LDL/HDL Ratio Cholesterol/HDL Ra laine (0.0-4.40) mg/dL Procalcitonin 0.18 (0-0.5) ng/mL TSH (0.27-4.20) uIU/ mL Free T4 (0.82-1.77) ng/d L Free T3 (2.0-4.4) PG/ML Serum Ketones Negative (Negative) 02/19/20 02/19/20 02/19/20 Range/Units 16:53 17:33 17:55 WBC (4.0-10.0) 10^3/ uL RBC (4.1-5.3) 10^6/u L Hgb (11.5-15.3) g/dL Hct (37.0-47.0) % MCV (81-99) fL MCH (28.0-34.0) pg MCHC (30.0-36.0) g/dL RDW (12.1-15.1) % Plt Count (130-400) 10^3/c mm MPV (7.4-10.4) fL Neut % (Auto) % Lymph % (Auto) % [place] % (Auto) % Eos % (Auto) % Baso % (Auto) % Neut # (Auto) (1.8-7.7) 10^3/u L Lymph # (Auto) (0.8-4.8) 10^3/u L [place] # (Auto) (0.2-0.9) 10^3/u L Eos # (Auto) (0.0-0.8) 10^3/u L Baso # (Auto) (0.0-0.1) 10^3/u L Nucleated RBC % (a uto) % Nucleated RBCs # /100WBC PT 15.40 H (12.1-14.9) SECO NDS INR 1.18 (0.8-1.2) Fibrinogen 613 H (174-498) mg/dL D-Dimer 1.03 H (0-0.59) ug/mIFE U Specimen Type Arterial Sample Site Brachial, left ABG pH 7.32 L (7.35-7.45) ABG pCO2 40.2 (35-45) mmHg ABG pO2 70.7 L (80.0-100.0) mmH g ABG HCO3 20.6 L (22-26) mmol/L ABG Base Excess -5.1 L (-2.0-2.0) mmol/ L Roni Test N/a Hematocrit 29.9 L (37-47) % O2 Delivery Device Room air FiO2 21.0 % Agricultural Researcher ID Amh Sodium (136-145) mmol/L Potassium (3.5-5.1) mmol/L Chloride (98-107) mmol/L Carbon Dioxide (22-29) mmol/L Anion Gap (5-19) BUN (8-23) mg/dL Creatinine (0.5-0.9) mg/dL GFR Calculation Glucose (65-115) mg/dL POC Glucose 428 (70-110) mg/dL Calculated Osmolal ity (285-295) mOsm/k g Lactic Acid (0.5-2.2) mmol/L Lactic Acid (Sepsi s) (0.5-2.2) mmol/L Calcium (8.5-10.5) mg/dL Phosphorus (2.5-4.5) mg/dL Magnesium (1.7-2.3) mg/dL Ferritin (15-150) ng/mL Total Bilirubin (0.15-1.2) mg/dL AST (0-32) U/L ALT (0-33) U/L Alkaline Phosphata se (35-105) IU/L Lactate Dehydrogen ase (135-214) U/L C-Reactive Protein (0.0-4.9) mg/L NT-Pro-B Natriuret Pep (0-450) pg/mL Total Protein (6.6-8.7) g/dL Albumin (3.5-5.2) g/dL Globulin (1.3-4.6) g/dL Triglycerides (0-150) mg/dL Cholesterol (0-200) mg/dL LDL Cholesterol Di rect (0-100) mg/dL LDL Cholesterol, C alc HDL Cholesterol (60-100) mg/dL LDL/HDL Ratio Cholesterol/HDL Ra [place] (0.0-4.40) mg/dL Procalcitonin (0-0.5) ng/mL TSH (0.27-4.20) uIU/ mL Free T4 (0.82-1.77) ng/d L Free T3 (2.0-4.4) PG/ML Serum Ketones (Negative) 11/06/20 11/06/20 11/07/20 Range/Units 20:17 22:29 06:55 WBC (4.0-10.0) 10^3/ uL RBC (4.1-5.3) 10^6/u L Hgb (11.5-15.3) g/dL Hct (37.0-47.0) % MCV (81-99) fL MCH (28.0-34.0) pg MCHC (30.0-36.0) g/dL RDW (12.1-15.1) % Plt Count (130-400) 10^3/c mm MPV (7.4-10.4) fL Neut % (Auto) % Lymph % (Auto) % [place] % (Auto) % Eos % (Auto) % Baso % (Auto) % Neut # (Auto) (1.8-7.7) 10^3/u L Lymph # (Auto) (0.8-4.8) 10^3/u L [place] # (Auto) (0.2-0.9) 10^3/u L Eos # (Auto) (0.0-0.8) 10^3/u L Baso # (Auto) (0.0-0.1) 10^3/u L Nucleated RBC % (a uto) % Nucleated RBCs # /100WBC PT (12.1-14.9) SECO NDS INR (0.8-1.2) Fibrinogen (174-498) mg/dL D-Dimer (0-0.59) ug/mIFE U Specimen Type Sample Site ABG pH (7.35-7.45) ABG pCO2 (35-45) mmHg ABG pO2 (80.0-100.0) mmH g ABG HCO3 (22-26) mmol/L ABG Base Excess (-2.0-2.0) mmol/ L Roni Test Hematocrit (37-47) % O2 Delivery Device FiO2 % Agricultural Researcher ID Sodium (136-145) mmol/L Potassium (3.5-5.1) mmol/L Chloride (98-107) mmol/L Carbon Dioxide (22-29) mmol/L Anion Gap (5-19) BUN (8-23) mg/dL Creatinine (0.5-0.9) mg/dL GFR Calculation Glucose (65-115) mg/dL POC Glucose 253 162 (70-110) mg/dL Calculated Osmolal ity (285-295) mOsm/k g Lactic Acid (0.5-2.2) mmol/L Lactic Acid (Sepsi s) 1.4 (0.5-2.2) mmol/L Calcium (8.5-10.5) mg/dL Phosphorus (2.5-4.5) mg/dL Magnesium (1.7-2.3) mg/dL Ferritin (15-150) ng/mL Total Bilirubin (0.15-1.2) mg/dL AST (0-32) U/L ALT (0-33) U/L Alkaline Phosphata se (35-105) IU/L Lactate Dehydrogen ase (135-214) U/L C-Reactive Protein (0.0-4.9) mg/L NT-Pro-B Natriuret Pep (0-450) pg/mL Total Protein (6.6-8.7) g/dL Albumin (3.5-5.2) g/dL Globulin (1.3-4.6) g/dL Triglycerides (0-150) mg/dL Cholesterol (0-200) mg/dL LDL Cholesterol Di rect (0-100) mg/dL LDL Cholesterol, C alc HDL Cholesterol (60-100) mg/dL LDL/HDL Ratio Cholesterol/HDL Ra laine (0.0-4.40) mg/dL Procalcitonin (0-0.5) ng/mL TSH (0.27-4.20) uIU/ mL Free T4 (0.82-1.77) ng/d L Free T3 (2.0-4.4) PG/ML Serum Ketones (Negative) 02/20/20 02/20/20 02/20/20 Range/Units 10:55 16:29 21:51 WBC (4.0-10.0) 10^3/ uL RBC (4.1-5.3) 10^6/u L Hgb (11.5-15.3) g/dL Hct (37.0-47.0) % MCV (81-99) fL MCH (28.0-34.0) pg MCHC (30.0-36.0) g/dL RDW (12.1-15.1) % Plt Count (130-400) 10^3/c mm MPV (7.4-10.4) fL Neut % (Auto) % Lymph % (Auto) % [place] % (Auto) % Eos % (Auto) % Baso % (Auto) % Neut # (Auto) (1.8-7.7) 10^3/u L Lymph # (Auto) (0.8-4.8) 10^3/u L [place] # (Auto) (0.2-0.9) 10^3/u L Eos # (Auto) (0.0-0.8) 10^3/u L Baso # (Auto) (0.0-0.1) 10^3/u L Nucleated RBC % (a uto) % Nucleated RBCs # /100WBC PT (12.1-14.9) SECO NDS INR (0.8-1.2) Fibrinogen (174-498) mg/dL D-Dimer (0-0.59) ug/mIFE U Specimen Type Sample Site ABG pH (7.35-7.45) ABG pCO2 (35-45) mmHg ABG pO2 (80.0-100.0) mmH g ABG HCO3 (22-26) mmol/L ABG Base Excess (-2.0-2.0) mmol/ L Roni Test Hematocrit (37-47) % O2 Delivery Device FiO2 % Agricultural Researcher ID Sodium (136-145) mmol/L Potassium (3.5-5.1) mmol/L Chloride (98-107) mmol/L Carbon Dioxide (22-29) mmol/L Anion Gap (5-19) BUN (8-23) mg/dL Creatinine (0.5-0.9) mg/dL GFR Calculation Glucose (65-115) mg/dL POC Glucose 196 78 221 (70-110) mg/dL Calculated Osmolal ity (285-295) mOsm/k g Lactic Acid (0.5-2.2) mmol/L Lactic Acid (Sepsi s) (0.5-2.2) mmol/L Calcium (8.5-10.5) mg/dL Phosphorus (2.5-4.5) mg/dL Magnesium (1.7-2.3) mg/dL Ferritin (15-150) ng/mL Total Bilirubin (0.15-1.2) mg/dL AST (0-32) U/L ALT (0-33) U/L Alkaline Phosphata se (35-105) IU/L Lactate Dehydrogen ase (135-214) U/L C-Reactive Protein (0.0-4.9) mg/L NT-Pro-B Natriuret Pep (0-450) pg/mL Total Protein (6.6-8.7) g/dL Albumin (3.5-5.2) g/dL Globulin (1.3-4.6) g/dL Triglycerides (0-150) mg/dL Cholesterol (0-200) mg/dL LDL Cholesterol Di rect (0-100) mg/dL LDL Cholesterol, C alc HDL Cholesterol (60-100) mg/dL LDL/HDL Ratio Cholesterol/HDL Ra laine (0.0-4.40) mg/dL Procalcitonin (0-0.5) ng/mL TSH (0.27-4.20) uIU/ mL Free T4 (0.82-1.77) ng/d L Free T3 (2.0-4.4) PG/ML Serum Ketones (Negative) 02/21/20 02/21/20 02/21/20 Range/Units 04:55 04:55 04:55 WBC 8.3 (4.0-10.0) 10^3/ uL RBC 3.48 L (4.1-5.3) 10^6/u L Hgb 10.0 L (11.5-15.3) g/dL Hct 33.1 L (37.0-47.0) % MCV 95.1 (81-99) fL MCH 28.7 (28.0-34.0) pg MCHC 30.2 (30.0-36.0) g/dL RDW 13.0 (12.1-15.1) % Plt Count 301 (130-400) 10^3/c mm MPV 9.7 (7.4-10.4) fL Neut % (Auto) 77.1 % Lymph % (Auto) 17.8 % [place] % (Auto) 4.3 % Eos % (Auto) 0.1 % Baso % (Auto) 0.1 % Neut # (Auto) 6.41 (1.8-7.7) 10^3/u L Lymph # (Auto) 1.5 (0.8-4.8) 10^3/u L [place] # (Auto) 0.4 (0.2-0.9) 10^3/u L Eos # (Auto) 0.0 (0.0-0.8) 10^3/u L Baso # (Auto) 0.0 (0.0-0.1) 10^3/u L Nucleated RBC % (a uto) 0 % Nucleated RBCs # 0.0 /100WBC PT (12.1-14.9) SECO NDS INR (0.8-1.2) Fibrinogen (174-498) mg/dL D-Dimer (0-0.59) ug/mIFE U Specimen Type Sample Site ABG pH (7.35-7.45) ABG pCO2 (35-45) mmHg ABG pO2 (80.0-100.0) mmH g ABG HCO3 (22-26) mmol/L ABG Base Excess (-2.0-2.0) mmol/ L Roni Test Hematocrit (37-47) % O2 Delivery Device FiO2 % Agricultural Researcher ID Sodium 148 H (136-145) mmol/L Potassium 4.3 (3.5-5.1) mmol/L Chloride 114 H (98-107) mmol/L Carbon Dioxide 26 (22-29) mmol/L Anion Gap 12.3 (5-19) BUN 48 H (8-23) mg/dL Creatinine 0.9 (0.5-0.9) mg/dL GFR Calculation Not Reportable Glucose 173 H (65-115) mg/dL POC Glucose (70-110) mg/dL Calculated Osmolal ity 323 H (285-295) mOsm/k g Lactic Acid 0.9 (0.5-2.2) mmol/L Lactic Acid (Sepsi s) (0.5-2.2) mmol/L Calcium 9.7 (8.5-10.5) mg/dL Phosphorus 2.2 L (2.5-4.5) mg/dL Magnesium 2.4 H (1.7-2.3) mg/dL Ferritin (15-150) ng/mL Total Bilirubin 0.3 (0.15-1.2) mg/dL AST 23 (0-32) U/L ALT 23 (0-33) U/L Alkaline Phosphata se 87 (35-105) IU/L Lactate Dehydrogen ase (135-214) U/L C-Reactive Protein (0.0-4.9) mg/L NT-Pro-B Natriuret Pep (0-450) pg/mL Total Protein 7.0 (6.6-8.7) g/dL Albumin 3.4 L (3.5-5.2) g/dL Globulin 3.6 (1.3-4.6) g/dL Triglycerides (0-150) mg/dL Cholesterol (0-200) mg/dL LDL Cholesterol Di rect (0-100) mg/dL LDL Cholesterol, C alc HDL Cholesterol (60-100) mg/dL LDL/HDL Ratio Cholesterol/HDL Ra laine (0.0-4.40) mg/dL Procalcitonin (0-0.5) ng/mL TSH 0.01 L (0.27-4.20) uIU/ mL Free T4 (0.82-1.77) ng/d L Free T3 (2.0-4.4) PG/ML Serum Ketones (Negative) 02/21/20 02/21/20 02/21/20 Range/Units 04:55 04:55 06:23 WBC (4.0-10.0) 10^3/ uL RBC (4.1-5.3) 10^6/u L Hgb (11.5-15.3) g/dL Hct (37.0-47.0) % MCV (81-99) fL MCH (28.0-34.0) pg MCHC (30.0-36.0) g/dL RDW (12.1-15.1) % Plt Count (130-400) 10^3/c mm MPV (7.4-10.4) fL Neut % (Auto) % Lymph % (Auto) % [place] % (Auto) % Eos % (Auto) % Baso % (Auto) % Neut # (Auto) (1.8-7.7) 10^3/u L Lymph # (Auto) (0.8-4.8) 10^3/u L [place] # (Auto) (0.2-0.9) 10^3/u L Eos # (Auto) (0.0-0.8) 10^3/u L Baso # (Auto) (0.0-0.1) 10^3/u L Nucleated RBC % (a uto) % Nucleated RBCs # /100WBC PT (12.1-14.9) SECO NDS INR (0.8-1.2) Fibrinogen (174-498) mg/dL D-Dimer (0-0.59) ug/mIFE U Specimen Type Sample Site ABG pH (7.35-7.45) ABG pCO2 (35-45) mmHg ABG pO2 (80.0-100.0) mmH g ABG HCO3 (22-26) mmol/L ABG Base Excess (-2.0-2.0) mmol/ L Roni Test Hematocrit (37-47) % O2 Delivery Device FiO2 % Agricultural Researcher ID Sodium (136-145) mmol/L Potassium (3.5-5.1) mmol/L Chloride (98-107) mmol/L Carbon Dioxide (22-29) mmol/L Anion Gap (5-19) BUN (8-23) mg/dL Creatinine (0.5-0.9) mg/dL GFR Calculation Glucose (65-115) mg/dL POC Glucose 128 (70-110) mg/dL Calculated Osmolal ity (285-295) mOsm/k g Lactic Acid (0.5-2.2) mmol/L Lactic Acid (Sepsi s) (0.5-2.2) mmol/L Calcium (8.5-10.5) mg/dL Phosphorus (2.5-4.5) mg/dL Magnesium (1.7-2.3) mg/dL Ferritin (15-150) ng/mL Total Bilirubin (0.15-1.2) mg/dL AST (0-32) U/L ALT (0-33) U/L Alkaline Phosphata se (35-105) IU/L Lactate Dehydrogen ase (135-214) U/L C-Reactive Protein (0.0-4.9) mg/L NT-Pro-B Natriuret Pep (0-450) pg/mL Total Protein (6.6-8.7) g/dL Albumin (3.5-5.2) g/dL Globulin (1.3-4.6) g/dL Triglycerides 408 H (0-150) mg/dL Cholesterol 168 (0-200) mg/dL LDL Cholesterol Di rect 81 (0-100) mg/dL LDL Cholesterol, C alc Not Reportable HDL Cholesterol 31 L (60-100) mg/dL LDL/HDL Ratio Not Reportable Cholesterol/HDL Ra laine 5.42 H (0.0-4.40) mg/dL Procalcitonin 0.07 (0-0.5) ng/mL TSH (0.27-4.20) uIU/ mL Free T4 1.88 H (0.82-1.77) ng/d L Free T3 2.7 (2.0-4.4) PG/ML Serum Ketones (Negative) Discharge Plan Discharge Patient Disposition: Placed in Observation Admit Provider: Shay Grubbs Clinical Impression: Acute renal failure Discharge Diet: As Directed Discharge Activity: Resume usual activity and As per PT/OT instructions 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
[2020-02-19 18:06] LABS: NT Pro B Type Natriuretic Pept 239 pg/mL (0-450); Procalcitonin 0.18 ng/mL (0-0.5)
[2020-02-19 18:18] LABS: Alanine Aminotransferase 24 U/L (0-33); Albumin Level 3.2 g/dL (3.5-5.2); Alkaline Phosphatase 81 IU/L (35-105); Anion Gap 18.4 (5-19); Aspartate Amino Transferase 28 U/L (0-32); C Reactive Protein 52.7 mg/L (0.0-4.9); Calcium 9.1 mg/dL (8.5-10.5); Carbon Dioxide 20 mmol/L (22-29); Chloride 111 mmol/L (98-107); Ferritin 907 ng/mL (15-150); Globulin 3.6 g/dL (1.3-4.6); Lactate Dehydrogenase 218 U/L (135-214); Potassium 5.4 mmol/L (3.5-5.1); Sodium 144 mmol/L (136-145); Total Bilirubin 0.2 mg/dL (0.15-1.2); Total Protein 6.8 g/dL (6.6-8.7)
[2020-02-19 18:26] LABS: Blood Urea Nitrogen 131 mg/dL (8-23); Glucose 508 mg/dL (65-115); Osmolality Calculated 363 mOsm/kg (285-295)
[2020-02-19 18:44] LABS: INR 1.18 (0.8-1.2)
[2020-02-19 18:45] LABS: Fibrinogen 613 mg/dL (174-498)
[2020-02-19 18:47] LABS: D Dimer 1.03 ug/mIFEU (0-0.59)
[2020-02-19 18:49] LABS: Reflex Lactate Order REFLEX LACTIC ORDERD
[2020-02-19 20:17] VITALS: BP 120/74; PULSE 99; RESP 19; O2SAT 95
[2020-02-19] MEDS: sodium chloride 0.9% 1,000 ML 150 ML IV (20:19)
[2020-02-19 21:11] LABS: Lactic Acid level (Lactate) 1.4 mmol/L (0.5-2.2)
[2020-02-19] MEDS: insulin regular-human 100 units/1 mL 10 UNIT IVP (21:21)
[2020-02-19 21:23] VITALS: BP 136/66; PULSE 92; RESP 19; O2SAT 96
--- NOTE | 2020-02-19 22:33 | PC.NURSE ---
Patient glucose is 253, nurse has been made aware
[2020-02-19 22:34] LABS: Glucose Point of Care 253 mg/dL (70-110)
[2020-02-20] VITALS (13 sets, daily range): BP systolic 103–170; BP diastolic 65–81; PULSE 66–110; RESP 16–20; TEMP 36.4–36.8; O2SAT 90–97
--- NOTE | 2020-02-20 | CTR_ITS ---
PROCEDURE INFORMATION: Exam: CT Head Without Contrast Exam date and time: 02/20/2020 12:17 AM Age: 79 years old Clinical indication: Altered mental status/memory loss; Confusion or disorientation; Additional info: Covid 19 postive, AMS, stroke? TECHNIQUE: Imaging protocol: Computed tomography of the head without contrast. Radiation optimization: All CT scans at this facility use at least one of these dose optimization techniques: automated exposure control; mA and/or kV adjustment per patient size (includes targeted exams where dose is matched to clinical indication); or iterative reconstruction. COMPARISON: CT head wo con* [id number] 10/15/2019 12:15 PM RADIATION DOSE METRICS: Total DLP (mGy-cm): 921.1 FINDINGS: Brain: Mild atrophy and mild white matter chronic microvascular changes are noted. No hemorrhage or CT evidence of acute infarction is seen. Cerebral ventricles: No ventriculomegaly. Bones/joints: Unremarkable. No acute fracture. Paranasal sinuses: A small retention cyst is present in the right maxillary sinus. Mastoid air cells: Visualized mastoid air cells are well aerated. Soft tissues: Unremarkable. CT/CT head wo con* [id number] IMPRESSION: No acute intracranial abnormality. Radiation Dose CTDIVOL = (mGy): DLP = 921.1 (mGy-cm)
--- NOTE | 2020-02-20 00:12 | PM.HP ---
Providers/Chief Complaint Primary Care Provider: Simon Garcia Chief Complaint: LOW O2 SATS History of Present Illness Keya De La Cruz is a 79 year old female with a past medical history of Alzheimer's dementia, history of lower limb ischemia status post balloon angioplasty, history of CVA, history of hypertension, hyperlipidemia, history of DVT, history of insulin-dependent type 2 diabetes mellitus who presents to [facility] due to concerns for hypoglycemia, shortness of breath, altered mental status. Currently patient is alert oriented x1, she does not know where she is, all she says that she is not feeling well, she is able to follow commands such as moving all her upper and lower extremities, squeezing my fingers bilaterally, wiggling her toes, it is difficult to get a straight answer from her, as she continues to speak in a very soft tone, and mumble at times, no facial droop, no slurring of her speech, no paralysis, pupils are equal round reactive to light. Although she tells me is she is not feeling well. I reached out to patient's detention, however the nursing staff there do not know her well, as the nurse covering tonight is on as needed, she is not sure why she was sent over to the emergency room. The signout I got from the ER physician is at patient was sent over, as she is Covid positive, they placed her on Decadron, and her blood sugars were high, in addition she has been complaining of some shortness of breath. In the ER her blood sugar was in the 500s, elevated BUN and elevated creatinine, she was given subcut insulin, blood sugars down to the 250s, given patient's uremia and LIDYA and concerns for dehydration I was called for admission. She nods no to chest pain. She nods no to shortness of breath. She nods no to nausea and vomiting. She nods no to abdominal pain. Review of her records that show that she has had a history of altered mental status secondary to UTIs. Review of Systems General: Reports: ROS unobtainable due to medical condition Card: Denies: chest pain Resp: Denies: dyspnea GI: Denies: abdominal pain Medications/Allergies Home Medications Medication Instructions Recorded Confirmed Last Taken Type atorvastatin 40 mg PO DAILY 04/30/19 02/19/20 02/18/20 History donepezil 5 mg PO DAILY 04/30/19 02/19/20 02/19/20 History gabapentin 100 mg PO TID 04/30/19 02/19/20 02/19/20 History polyethylene glycol 3350 17 g PO DAILY 04/30/19 02/19/20 02/19/20 History venlafaxine 37.5 mg PO BID 04/30/19 02/19/20 02/19/20 History memantine 10 mg PO BID 05/01/19 02/19/20 02/19/20 History folic acid 1 mg PO DAILY #30 tab 05/02/19 02/19/20 02/19/20 Rx pantoprazole [Protonix] 40 mg PO DAILY #30 each 05/02/19 02/19/20 02/19/20 Rx melatonin 3 mg PO BEDTIME 07/21/19 02/19/20 02/18/20 History acetaminophen [Tylenol] 650 mg PO QID PRN 10/15/19 02/19/20 02/13/20 History alprazolam 0.25 mg PO BID PRN 10/15/19 02/19/20 02/15/20 History hydrocodone-acetaminophen 1 tab PO Q6H PRN 10/15/19 02/19/20 02/19/20 History sennosides-docusate sodium 1 tab-cap PO BID 10/15/19 02/19/20 02/19/20 History [Senna-S] amlodipine 10 mg PO DAILY #30 tab 10/20/19 02/19/20 02/19/20 Rx aspirin [Adult Low Dose Aspirin] 81 mg PO DAILY #30 tab 10/20/19 02/19/20 02/19/20 Rx lisinopril 10 mg PO DAILY #30 tab 10/20/19 02/19/20 02/19/20 Rx nitroglycerin 1 patch TRANSDERMAL Q24H #30 ea 10/20/19 02/19/20 02/19/20 Rx amino acids-protein hydrolys 1 ea PO BID 02/19/20 02/19/20 02/19/20 History [Pro-Stat AWC] collagen (bovine) [Triple Scobey 1 applic TOPICAL DAILY 02/19/20 02/19/20 02/17/20 History Collagen] dexamethasone 6 mg PO DAILY 11/06/20 11/06/20 11/06/20 History Allergies Allergy/AdvReac Type Severity Reaction Status Date / Time No Known Allergies Allergy Verified 10/15/19 10:55 PFSH Acute PFSH: Medical History (Updated 02/20/20 @ 00:21 by Shay Grubbs MD) Alzheimer's dementia Anemia COPD (chronic obstructive pulmonary disease) CVA (cerebral vascular accident) Depression DVT (deep venous thrombosis) Hyperlipidemia Hypertension Peripheral vascular disease Tobacco abuse, in remission Surgical History History of dilatation and curettage Family History Denies family history of CAD (coronary artery disease) Stroke Social History Smoking and tobacco status: former smoker Quit status (tobacco): has quit using tobacco Year quit tobacco: February 2019 Alcohol intake: never Housing: Correction Vitals/I&O/Wt Last Vital Signs Temp 97.6 F 02/19/20 16:22 Pulse 92 02/19/20 21:23 Resp 19 H 02/19/20 21:23 BP 136/66 02/19/20 21:23 Pulse Ox 96 02/19/20 21:23 Weight last 48 hrs Weight 63.503 kg Physical Exam Const: COMMON NORMALS: no acute distress EXAM LIMITATIONS: altered mental status ORIENTATION/CONSCIOUSNESS: Yes awake, Yes oriented to person and Yes confused; not oriented to place and not oriented to time HENMT: COMMON NORMALS: normocephalic Eye: COMMON NORMALS: Equal, round and reactive pupils present and EOMs intact bilaterally Lymph: LYMPHATIC: no lymphadenopathy noted Chest: COMMONS NORMALS: normal inspection of the chest Resp: COMMON NORMALS: normal respiratory effort, No retractions, No use of accessory muscles and clear to auscultation bilaterally Cardio: COMMON NORMALS: no JVD, regular rate, regular rhythm, S1 normal heart sound present and S2 normal heart sound present GI: COMMON NORMALS: Normal to inspection, nondistended, normoactive bowel sounds present, Soft to palpation, non-tender and No hepatosplenomegaly present : COMMON NORMALS: Yes no CVA tenderness Extremity: COMMON NORMALS: normal to inspection, full ROM and capillary refill normal Neuro: SENSORIUM/ORIENTATION: Yes alert, Yes oriented to person, No oriented to place and No oriented to time SPEECH: Other neuro speech findings (Minimal speech, she mumbles, no slurring of her speech) OTHER: She is able to move her upper and lower extremities, against gravity, able to squeeze my fingers bilaterally, wiggle her toes, she smiles for me, she frowns for me, difficult to follow the rest of the neurologic testing Data : 02/19/20 16:50 02/19/20 16:50 A&P Assessment and plan (1) Altered mental status: -Secondary to right lower lobe pneumonia, possible UTI, COVID-19, uremia PLAN: -Follow urine cultures, blood cultures -On Rocephin and azithromycin -We will do CT of the head to rule out stroke related hypercoagulability of COVID-19 -Neurochecks, aspiration precautions, seizure precautions -PT OT -Patient is DNR -Xarelto for DVT prophylaxis Status: Acute (2) Acute renal failure: Status: Acute Qualifiers: Acute renal failure type: unspecified Qualified Code(s): N17.9 - Acute kidney failure, unspecified (3) Pneumonia: Status: Acute (4) Acute UTI: Status: Acute (5) Hyperlipidemia: Status: Acute Qualifiers: Hyperlipidemia type: unspecified Qualified Code(s): E78.5 - Hyperlipidemia, unspecified (6) DVT (deep venous thrombosis): Status: Acute Qualifiers: DVT location: lower extremity Affected thrombotic vein of extremity: femoral Chronicity: chronic Laterality: left Qualified Code(s): I82.512 - Chronic embolism and thrombosis of left femoral vein (7) Peripheral vascular disease: -Status post balloon angioplasty, on Xarelto, aspirin Status: Acute (8) CVA (cerebral vascular accident): History CVA in the past, I am not sure of the laterality or the deficits Status: Acute Qualifiers: CVA mechanism: other Qualified Code(s): I63.89 - Other cerebral infarction (9) Alzheimer's dementia: History of Alzheimer's dementia Status: Acute Qualifiers: Alzheimer's disease onset: unspecified onset Dementia behavioral disturbance: without behavioral disturbance Qualified Code(s): G30.9 - Alzheimer's disease, unspecified; F02.80 - Dementia in other diseases classified elsewhere without behavioral disturbance (10) Hypertension: Status: Acute Qualifiers: Hypertension type: essential hypertension Qualified Code(s): I10 - Essential (primary) hypertension (11) Uremia: Status: Acute (12) Acute kidney injury: LIDYA and uremia secondary to dehydration, continue IV hydration Status: Acute (13) Insulin dependent type 2 diabetes mellitus: Currently patient is n.p.o., continue moderate dose sliding scale Status: Acute (14) Hyperglycemia: Secondary to Decadron, stop Decadron Status: Acute (15) COVID-19: COVID-19 positive, not requiring any oxygen, stop Decadron Status: Acute Attestations Medical Necessity Statement*: Patient requires hospitalization, outpatient with observation, for altered mental status, hypoglycemia, dehydration Coding Level of Care Code 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 [facility] Diagnoses Altered mental status R41.82 Acute renal failure N17.9 Acute renal failure type: unspecified Pneumonia J18.9 Acute UTI N39.0 Hyperlipidemia E78.5 Hyperlipidemia type: unspecified DVT (deep venous thrombosis) I82.512 DVT location: lower extremity Affected thrombotic vein of extremity: femoral Chronicity: chronic Laterality: left Peripheral vascular disease I73.9 CVA (cerebral vascular accident) I63.89 CVA mechanism: other Alzheimer's dementia G30.9; F02.80 Alzheimer's disease onset: unspecified onset Dementia behavioral disturbance: without behavioral disturbance Hypertension I10 Hypertension type: essential hypertension Uremia N19 Acute kidney injury N17.9 Insulin dependent type 2 diabetes mellitus E11.9; Z79.4 Hyperglycemia R73.9 COVID-19 U07.1
[2020-02-20] MEDS: sodium chloride 0.9% 1,000 ML 999 ML IV (02:01)
[2020-02-20] MEDS: cefTRIAXone 1,000 MG in sodium chloride 0.9% (plus) 50 ML 100 MG IV (02:59)
[2020-02-20] MEDS: dextrose 5%-sod chloride 0.45% 1,000 ML 75 ML IV ×3 (03:00→22:12)
[2020-02-20] MEDS: azithromycin 500 MG in sodium chloride 0.9% 250 ML 250 MG IV (03:59)
[2020-02-20 07:36] LABS: Glucose Point of Care 162 mg/dL (70-110)
[2020-02-20] MEDS: aspirin 81 mg EC Tablet PO (10:27)
[2020-02-20] MEDS: amlodipine 10 mg Tablet PO (10:27)
[2020-02-20] MEDS: donepezil 5 MG Tablet PO (10:27)
[2020-02-20] MEDS: atorvastatin 40 mg Tablet PO (10:27)
[2020-02-20] MEDS: memantine 5 mg tablet 10 MG PO ×2 (10:28→17:03)
[2020-02-20] MEDS: rivaroxaban 10 mg Tablet 5 MG PO (10:28)
[2020-02-20] MEDS: venlafaxine 75 mg Tablet 37.5 MG PO ×2 (10:28→17:03)
[2020-02-20] MEDS: pantoprazole DR 40 mg Tablet PO (10:28)
[2020-02-20] MEDS: folic acid 1 mg Tablet PO (10:29)
[2020-02-20] MEDS: gabapentin 100 mg Capsule PO ×3 (10:29→22:12)
[2020-02-20 11:47] LABS: Glucose Point of Care 196 mg/dL (70-110)
--- NOTE | 2020-02-20 12:02 | PC.OT ---
Patient seen for occupational therapy evaluation. She was unable to participate in evaluation. Patient is not appropriate for therapy at this time.
--- NOTE | 2020-02-20 12:27 | PC.PT ---
Attempted to evaluate patient (11:35-11:47) with OT. Patient unable to follow commands or speak coherently. Could answer some yes/no questions, but irregularly. PT not appropriate for this patient.
--- NOTE | 2020-02-20 15:18 | P.PN_ITS ---
Subjective Subjective: Interval history: No acute overnight events. Overnight labs and H&P reviewed. No gross change in mental status. 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 bed, not necassarily to commands (baseline) Urinary Catheter Management^: Richardson: Cath Placed During This Visit: yes Reason for Continuing Indwelling Catheter: Accurate Measurement of Urinary Output in Critically Ill Patients Urinary Catheter Date of Insertion: 02/20/20 Urinary Catheter Time of Insertion: 00:34 Data : 02/19/20 16:50 02/19/20 16:50 Micro: Microbiology 02/20/20 06:12 Blood Culture - Preliminary Blood SPECIMEN COLLECTED 02/20/20 06:16 Blood Culture - Preliminary Blood SPECIMEN COLLECTED A&P Assessment and plan (1) Altered mental status: -Secondary to right lower lobe pneumonia, possible UTI, COVID-19, uremia -Follow urine cultures, blood cultures -Continue Rocephin and azithromycin - CT of the head without acute intracranial abnormalities -Xarelto for DVT prophylaxis Status: Acute (2) Acute renal failure: Status: Acute Qualifiers: Acute renal failure type: unspecified Qualified Code(s): N17.9 - Acute kidney failure, unspecified (3) Pneumonia: Plan as above Status: Acute (4) Acute UTI: Status: Acute (5) Hyperlipidemia: Status: Acute Qualifiers: Hyperlipidemia type: unspecified Qualified Code(s): E78.5 - Hyperlipidemia, unspecified (6) DVT (deep venous thrombosis): Status: Acute Qualifiers: DVT location: lower extremity Affected thrombotic vein of extremity: femoral Chronicity: chronic Laterality: left Qualified Code(s): I82.512 - Chronic embolism and thrombosis of left femoral vein (7) Peripheral vascular disease: -Status post balloon angioplasty, on Xarelto, aspirin Status: Acute (8) CVA (cerebral vascular accident): History CVA in the past, I am not sure of the laterality or the deficits Status: Acute Qualifiers: CVA mechanism: other Qualified Code(s): I63.89 - Other cerebral infarction (9) Alzheimer's dementia: History of Alzheimer's dementia Status: Acute Qualifiers: Alzheimer's disease onset: unspecified onset Dementia behavioral disturbance: without behavioral disturbance Qualified Code(s): G30.9 - Alzheimer's disease, unspecified; F02.80 - Dementia in other diseases classified elsewhere without behavioral disturbance (10) Hypertension: Status: Acute Qualifiers: Hypertension type: essential hypertension Qualified Code(s): I10 - Essential (primary) hypertension (11) Uremia: Status: Acute (12) Acute kidney injury: LIDYA and uremia secondary to dehydration, continue IV hydration Status: Acute (13) Insulin dependent type 2 diabetes mellitus: Currently patient is n.p.o., continue moderate dose sliding scale Status: Acute (14) Hyperglycemia: Secondary to Decadron, stop Decadron Status: Acute (15) COVID-19: COVID-19 positive, not requiring any oxygen, stop Decadron Status: Acute Attestations Medical Necessity Statement*: Needs ongoing admission for IV antibiotics, IV hydration, once returned to baseline to be discharged back to SNF, anticipate in the next 24 to 48 hours Coding Level of Care Code Acute Photovoltaic Solar Cell Design[facility] Diagnoses Altered mental status R41.82 Acute renal failure N17.9 Acute renal failure type: unspecified Pneumonia J18.9 Acute UTI N39.0 Hyperlipidemia E78.5 Hyperlipidemia type: unspecified DVT (deep venous thrombosis) I82.512 DVT location: lower extremity Affected thrombotic vein of extremity: femoral Chronicity: chronic Laterality: left Peripheral vascular disease I73.9 CVA (cerebral vascular accident) I63.89 CVA mechanism: other Alzheimer's dementia G30.9; F02.80 Alzheimer's disease onset: unspecified onset Dementia behavioral disturbance: without behavioral disturbance Hypertension I10 Hypertension type: essential hypertension Uremia N19 Acute kidney injury N17.9 Insulin dependent type 2 diabetes mellitus E11.9; Z79.4 Hyperglycemia R73.9 COVID-19 U07.1
[2020-02-20 16:51] LABS: Glucose Point of Care 78 mg/dL (70-110)
[2020-02-20 22:52] LABS: Glucose Point of Care 221 mg/dL (70-110)
[2020-02-21] VITALS (7 sets, daily range): BP systolic 101–185; BP diastolic 65–81; PULSE 83–112; RESP 15–20; TEMP 36.2–36.8; O2SAT 96–98
[2020-02-21] MEDS: cefTRIAXone 1,000 MG in sodium chloride 0.9% (plus) 50 ML 100 MG IV (02:55)
[2020-02-21] MEDS: azithromycin 500 MG in sodium chloride 0.9% 250 ML 250 MG IV (04:23)
[2020-02-21 05:07] LABS: Basophils % 0.1 %; Eosinophils % 0.1 %; Hematocrit 33.1 % (37.0-47.0); Lymphocytes # 1.5 10^3/uL (0.8-4.8); Lymphocytes % 17.8 %; Mean Corpuscular HGB Conc 30.2 g/dL (30.0-36.0); Mean Corpuscular Hemoglobin 28.7 pg (28.0-34.0); Mean Corpuscular Volume 95.1 fL (81-99); Mean Platelet Volume 9.7 fL (7.4-10.4); Monocytes # 0.4 10^3/uL (0.2-0.9); Monocytes % 4.3 %; Neutrophils # 6.41 10^3/uL (1.8-7.7); Neutrophils % 77.1 %; Nucleated Red Blood Cells % 0 %; Platelet Count 301 10^3/cmm (130-400); Red Blood Count 3.48 10^6/uL (4.1-5.3); White Blood Count 8.3 10^3/uL (4.0-10.0)
[2020-02-21 05:23] LABS: Lactic Sepsis W/Reflex 0.9 mmol/L (0.5-2.2)
[2020-02-21 05:36] LABS: Alanine Aminotransferase 23 U/L (0-33); Albumin Level 3.4 g/dL (3.5-5.2); Alkaline Phosphatase 87 IU/L (35-105); Anion Gap 12.3 (5-19); Aspartate Amino Transferase 23 U/L (0-32); Blood Urea Nitrogen 48 mg/dL (8-23); Calcium 9.7 mg/dL (8.5-10.5); Carbon Dioxide 26 mmol/L (22-29); Chloride 114 mmol/L (98-107); Globulin 3.6 g/dL (1.3-4.6); Glucose 173 mg/dL (65-115); Magnesium 2.4 mg/dL (1.7-2.3); Osmolality Calculated 323 mOsm/kg (285-295); Phosphorus 2.2 mg/dL (2.5-4.5); Potassium 4.3 mmol/L (3.5-5.1); Sodium 148 mmol/L (136-145); Thyroid Stimulating Hormone 0.01 uIU/mL (0.27-4.20); Total Bilirubin 0.3 mg/dL (0.15-1.2)
[2020-02-21 05:37] LABS: Procalcitonin 0.07 ng/mL (0-0.5)
[2020-02-21 05:49] LABS: Chol HDL Ratio 5.42 mg/dL (0.0-4.40); Cholesterol 168 mg/dL (0-200); HDL Cholesterol 31 mg/dL (60-100); Triglycerides 408 mg/dL (0-150)
[2020-02-21 06:27] LABS: LDL Cholesterol Direct 81 mg/dL (0-100)
[2020-02-21 06:27] LABS: Glucose Point of Care 128 mg/dL (70-110)
[2020-02-21] MEDS: rivaroxaban 10 mg Tablet 5 MG PO (08:12)
[2020-02-21] MEDS: memantine 5 mg tablet 10 MG PO ×2 (08:12→18:17)
[2020-02-21] MEDS: amlodipine 10 mg Tablet PO (08:12)
[2020-02-21] MEDS: donepezil 5 MG Tablet PO (08:12)
[2020-02-21] MEDS: aspirin 81 mg EC Tablet PO (08:12)
[2020-02-21] MEDS: atorvastatin 40 mg Tablet PO (08:13)
[2020-02-21] MEDS: venlafaxine 75 mg Tablet 37.5 MG PO ×2 (08:13→18:17)
[2020-02-21] MEDS: gabapentin 100 mg Capsule PO ×3 (08:13→22:06)
[2020-02-21] MEDS: pantoprazole DR 40 mg Tablet PO (08:13)
[2020-02-21] MEDS: folic acid 1 mg Tablet PO (08:13)
[2020-02-21] MEDS: sodium chloride 0.45% 1,000 ML 50 ML IV (11:58)
[2020-02-21 15:38] LABS: Free T4 Free Thyroxine 1.88 ng/dL (0.82-1.77); T3 Free 2.7 PG/ML (2.0-4.4)
--- NOTE | 2020-02-21 16:17 | PM.PN ---
Subjective Subjective: Interval history: No acute overnight events. Trending towards hypernatremia and hyperchloremia. TSH returned at 0.01 Medications: Reviewed: Yes Vitals/I&O/Wt Last Vital Signs Temp 97.1 F L 02/21/20 16:00 Pulse 93 02/21/20 16:00 Resp 16 02/21/20 16:00 BP 120/68 02/21/20 16:00 Pulse Ox 96 02/21/20 12:00 02/21/20 02/21/20 02/21/20 06:59 14:59 22:59 Intake Total 600 / 600 Output Total 825 / 3075 Balance -825 / -1955 600 / 600 Weight last 48 hrs Weight 63.503 kg Physical Exam Narrative: EXAM NARRATIVE: GEN: Awake, alert ,disoriented, appears to be at baseline CVS: S1S2 N RS: CTA B/L Abd: Soft, nt/nd , bs+ COSMETICS PRESSER: no focal neuro deficits Urinary Catheter Management^: Richardson: Cath Placed During This Visit: yes Reason for Continuing Indwelling Catheter: Accurate Measurement of Urinary Output in Critically Ill Patients Urinary Catheter Date of Insertion: 02/20/20 Urinary Catheter Time of Insertion: 00:34 Data : 02/21/20 04:55 02/21/20 04:55 Micro: Microbiology 02/20/20 06:12 Blood Culture - Preliminary Blood NEGATIVE TO DATE 02/20/20 06:16 Blood Culture - Preliminary Blood NEGATIVE TO DATE A&P Assessment and plan (1) Altered mental status: -Secondary to right lower lobe pneumonia, possible UTI, COVID-19, uremia -negative urine cultures, blood cultures -Continue Rocephin and azithromycin - CT of the head without acute intracranial abnormalities -Xarelto for DVT prophylaxis Status: Acute (2) Acute renal failure: resolved with cr now at 0.9 Status: Acute Qualifiers: Acute renal failure type: unspecified Qualified Code(s): N17.9 - Acute kidney failure, unspecified (3) Pneumonia: Plan as above Status: Acute (4) Acute UTI: Status: Acute (5) Hyperlipidemia: Status: Acute Qualifiers: Hyperlipidemia type: unspecified Qualified Code(s): E78.5 - Hyperlipidemia, unspecified (6) DVT (deep venous thrombosis): Status: Acute Qualifiers: DVT location: lower extremity Affected thrombotic vein of extremity: femoral Chronicity: chronic Laterality: left Qualified Code(s): I82.512 - Chronic embolism and thrombosis of left femoral vein (7) Peripheral vascular disease: -Status post balloon angioplasty, on Xarelto, aspirin Status: Acute (8) CVA (cerebral vascular accident): History CVA in the past, Status: Acute Qualifiers: CVA mechanism: other Qualified Code(s): I63.89 - Other cerebral infarction (9) Alzheimer's dementia: History of Alzheimer's dementia Status: Acute Qualifiers: Alzheimer's disease onset: unspecified onset Dementia behavioral disturbance: without behavioral disturbance Qualified Code(s): G30.9 - Alzheimer's disease, unspecified; F02.80 - Dementia in other diseases classified elsewhere without behavioral disturbance (10) Hypertension: Status: Acute Qualifiers: Hypertension type: essential hypertension Qualified Code(s): I10 - Essential (primary) hypertension (11) Uremia: Status: Acute (12) Acute kidney injury: LIDYA and uremia secondary to dehydration, continue IV hydration, however given hypernatremia and hyperchloremia, change fluids to 1/2 NS at 50 cc/hr Status: Acute (13) Insulin dependent type 2 diabetes mellitus: Currently patient is n.p.o., continue moderate dose sliding scale Status: Acute (14) Hyperglycemia: Secondary to Decadron, stop Decadron Status: Acute (15) COVID-19: COVID-19 positive, not requiring any oxygen, stopped Decadron Status: Acute Additional A&P Information elevatd TSH, check FT3 and FT4 Attestations Medical Necessity Statement*: change to inpatient admission, needs further management for developing hypernatremia and w/up for low TSH Coding Level of Care Code Acute 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 for Chg Fwd Diagnoses Altered mental status R41.82 Acute renal failure N17.9 Acute renal failure type: unspecified Pneumonia J18.9 Acute UTI N39.0 Hyperlipidemia E78.5 Hyperlipidemia type: unspecified DVT (deep venous thrombosis) I82.512 DVT location: lower extremity Affected thrombotic vein of extremity: femoral Chronicity: chronic Laterality: left Peripheral vascular disease I73.9 CVA (cerebral vascular accident) I63.89 CVA mechanism: other Alzheimer's dementia G30.9; F02.80 Alzheimer's disease onset: unspecified onset Dementia behavioral disturbance: without behavioral disturbance Hypertension I10 Hypertension type: essential hypertension Uremia N19 Acute kidney injury N17.9 Insulin dependent type 2 diabetes mellitus E11.9; Z79.4 Hyperglycemia R73.9 COVID-19 U07.1
[2020-02-21 17:44] LABS: Glucose Point of Care 159 mg/dL (70-110)
[2020-02-21 20:38] LABS: Glucose Point of Care 208 mg/dL (70-110)
[2020-02-22] VITALS: BP 149/67; PULSE 77; RESP 22; TEMP 36.1; O2SAT 98
[2020-02-22] MEDS: cefTRIAXone 1,000 MG in sodium chloride 0.9% (plus) 50 ML 100 MG IV (02:03)
[2020-02-22] MEDS: azithromycin 500 MG in sodium chloride 0.9% 250 ML 250 MG IV (02:55)
[2020-02-22 04:00] VITALS: BP 129/82; PULSE 91; RESP 22; TEMP 36.8; O2SAT 94
[2020-02-22 06:44] LABS: Glucose Point of Care 146 mg/dL (70-110)
[2020-02-22 07:55] LABS: Basophils % 0.1 %; Eosinophils % 0.4 %; Hematocrit 37.5 % (37.0-47.0); Hemoglobin 10.2 g/dL (11.5-15.3); Lymphocytes # 1.6 10^3/uL (0.8-4.8); Lymphocytes % 16.2 %; Mean Corpuscular HGB Conc 27.2 g/dL (30.0-36.0); Mean Corpuscular Hemoglobin 29.1 pg (28.0-34.0); Mean Corpuscular Volume 107.1 fL (81-99); Mean Platelet Volume 10.1 fL (7.4-10.4); Monocytes # 0.5 10^3/uL (0.2-0.9); Monocytes % 4.6 %; Neutrophils # 7.52 10^3/uL (1.8-7.7); Neutrophils % 77.8 %; Nucleated Red Blood Cells % 0 %; Platelet Count 287 10^3/cmm (130-400); Red Cell Distribution Width 12.9 % (12.1-15.1)
[2020-02-22 08:00] VITALS: BP 161/88; PULSE 103; RESP 16; TEMP 36.5; O2SAT 98
[2020-02-22 08:05] LABS: Alanine Aminotransferase 22 U/L (0-33); Albumin Level 3.3 g/dL (3.5-5.2); Alkaline Phosphatase 96 IU/L (35-105); Anion Gap 15.6 (5-19); Aspartate Amino Transferase 23 U/L (0-32); Blood Urea Nitrogen 35 mg/dL (8-23); Calcium 9.5 mg/dL (8.5-10.5); Carbon Dioxide 23 mmol/L (22-29); Chloride 112 mmol/L (98-107); Creatinine Clr Calc Pharmacy 55.7936; Globulin 3.7 g/dL (1.3-4.6); Glucose 150 mg/dL (65-115); Osmolality Calculated 313 mOsm/kg (285-295); Potassium 4.6 mmol/L (3.5-5.1); Sodium 146 mmol/L (136-145); Total Bilirubin 0.3 mg/dL (0.15-1.2)
[2020-02-22 08:07] LABS: White Blood Count 9.7 10^3/uL (4.0-10.0)
--- NOTE | 2020-02-22 09:04 | PC.CHAP ---
Pastoral Care Encounter/Spiritual Assessment Type of Contact [] Declined turkey boner visit [] Patient/Family/Request visit [] Outpatient visit [] Follow-up visit [] Physician referral [] Code/Alert [] Routine visit [] Staff referral [] Actively dying [x] Patient sleeping [] Family support [] [] Out of room [] Palliative care [] [] Receiving care in room [] Pre-surgical visit [] Trauma [] Long length of stay [] ICU visit [] Other: Relational/Emotional Strength [] Patient feels connected with others/family/visitors/staff [] Distress [] Loneliness/isolation [] Abandonment Spirituality of Patient [] Person of Ilsa [] Attends Jewish of their Ilsa [] Believes in Prayer [] Reads Bible or Baptist materials [] There are Spiritual issues to be addressed Pants Presser Automatic Interventions [] Prayer [] Active listening [] Non-anxious presence [] Spiritual/emotional support [] Crisis/trauma care [] Spiritual counseling [] Bereavement support [] Provided bereavement packet [] Provided Bible/devotional materials [] Provided toy/stuffed animal, coloring book to patient or family member [] Provided Communion [] Anointing/[place] [] Salvation [] Completed spiritual assessment [] Other: Impact on Illness or Injury [] Angry [] Fearful [] Anxious [] Often cries [] Exhaustion [] Unable to work [] Unable to attend faith [] Unable to walk/stand [] Unable to read [] Unable to drive [] Unable to eat/drink [] Unable to sleep [] Unable to be with family [] Patient intubated [] Other: Summary Time spent with patient
[2020-02-22] MEDS: venlafaxine 75 mg Tablet 37.5 MG PO (11:10)
[2020-02-22] MEDS: atorvastatin 40 mg Tablet PO (11:10)
[2020-02-22] MEDS: pantoprazole DR 40 mg Tablet PO (11:10)
[2020-02-22] MEDS: memantine 5 mg tablet 10 MG PO (11:11)
[2020-02-22] MEDS: amlodipine 10 mg Tablet PO (11:11)
[2020-02-22] MEDS: sennosides-docusate Tablet 1 TAB PO (11:11)
[2020-02-22] MEDS: donepezil 5 MG Tablet PO (11:11)
[2020-02-22] MEDS: aspirin 81 mg EC Tablet PO (11:11)
[2020-02-22] MEDS: gabapentin 100 mg Capsule PO (11:12)
[2020-02-22] MEDS: folic acid 1 mg Tablet PO (11:12)
[2020-02-22] MEDS: rivaroxaban 10 mg Tablet 5 MG PO (11:12)
--- NOTE | 2020-02-22 11:50 | P.DS_ITS ---
Discharge Providers Date of Admission: 02/21/20 11:46 Date of Discharge: February 22, 2020 Attending Provider at Admission: Shay Grubbs MD Attending Provider at Discharge: Megan Weir MD Primary Care Provider: Simon Garcia Diagnoses at Discharge Discharge Diagnosis (1) Altered mental status: Status: Acute (2) Acute renal failure: Status: Acute Qualifiers: Acute renal failure type: unspecified Qualified Code(s): N17.9 - Acute kidney failure, unspecified (3) Pneumonia: Status: Acute (4) Acute UTI: Status: Acute (5) Hyperlipidemia: Status: Acute Qualifiers: Hyperlipidemia type: unspecified Qualified Code(s): E78.5 - Hyperlipidemia, unspecified (6) DVT (deep venous thrombosis): Status: Acute Qualifiers: DVT location: lower extremity Affected thrombotic vein of extremity: femoral Chronicity: chronic Laterality: left Qualified Code(s): I82.512 - Chronic embolism and thrombosis of left femoral vein (7) Peripheral vascular disease: Status: Acute (8) CVA (cerebral vascular accident): Status: Acute Qualifiers: CVA mechanism: other Qualified Code(s): I63.89 - Other cerebral infarction (9) Alzheimer's dementia: Status: Acute Qualifiers: Alzheimer's disease onset: unspecified onset Dementia behavioral disturbance: without behavioral disturbance Qualified Code(s): G30.9 - Alzheimer's disease, unspecified; F02.80 - Dementia in other diseases classified elsewhere without behavioral disturbance (10) Hypertension: Status: Acute Qualifiers: Hypertension type: essential hypertension Qualified Code(s): I10 - Essential (primary) hypertension (11) Uremia: Status: Acute (12) Acute kidney injury: Status: Acute (13) Insulin dependent type 2 diabetes mellitus: Status: Acute (14) Hyperglycemia: Status: Acute (15) COVID-19: Status: Acute Reason for Visit Reason for Visit: LOW O2 [facility] Course Hospital Course Keya De La Cruz is a 79 year old female with a past medical history of Alzheimer's dementia, history of lower limb ischemia status post balloon angioplasty, history of CVA, history of hypertension, hyperlipidemia, history of DVT, history of insulin-dependent type 2 diabetes mellitus who presented to [facility] due to concerns for hypoglycemia, shortness of breath, altered mental status. In the ER her blood sugar was in the 500s, elevated BUN and elevated creatinine, she was given subcut insulin, blood sugars down to the 250s, given patient's uremia and LIDYA and concerns for dehydration she was admitted to the hospital. She was found to have a possible right lower lobe pneumonia. She was treated empirically with ceftriaxone and azithromycin. She has completed 3 days of azithromycin for the time of discharge. Ceftriaxone was transitioned to another 2 days of Augmentin to complete a total 5-day course for pneumonia. She was also noted to have LIDYA with creatinine of 2.0 and hyperkalemia 5.4 upon admission. Lisinopril was held and this is resolved. She received some hydration additionally. CT head was negative for acute intracranial abnormalities. Her mental status is back to baseline. From review of multiple past notes it appears that patient has a history of severe dementia, is limited in her verbal skills and is at a baseline oriented x1. She is being discharged today in a stable condition with advised to complete the antibiotic course. She was on dexamethasone upon admission, this has been discontinued upon discharge and patient is noted to be saturating well on room air. She has remained on room air since admission. Physical Exam Narrative: EXAM NARRATIVE: GEN: Awake, alert ,disoriented, appears to be at baseline CVS: S1S2 N RS: CTA B/L Abd: Soft, nt/nd , bs+ Urinary Catheter Management^: Richardson: Cath Placed During This Visit: yes Reason for Continuing Indwelling Catheter: Chronic Indwelling Urinary Catheter on Admission Urinary Catheter Date of Insertion: 02/20/20 Urinary Catheter Time of Insertion: 00:34 Discharge Data Data Completed and Pending: Completed Studies During Hospitalization Category Date Time Status CT head wo con* 7 0450 Urgent Cat Scan 02/20/20 00:00 Completed XR chest 1V abhishek ble [id number] Stat Exams 02/19/20 16:35 Completed Pending at discharge Category Date Time Status Blood Culture Sta t Lab 02/20/20 06:12 Results Complete Blood Co unt w/Auto AM LABS Lab 02/23/20 04:00 Ordered Comprehensive Met abolic Panel AM LA BS Lab 02/23/20 04:00 Ordered Sputum Culture an d Gram Stain Stat Lab 02/20/20 02:36 Uncollected Labs from last 24 hours 02/22/20 02/22/20 02/22/20 06:41 03:42 03:42 WBC 9.7 RBC 3.50 L Hgb 10.2 L Hct 37.5 MCV 107.1 H D MCH 29.1 MCHC 27.2 L D RDW 12.9 Plt Count 287 MPV 10.1 Neut % (Auto) 77.8 Lymph % (Auto) 16.2 [place] % (Auto) 4.6 Eos % (Auto) 0.4 Baso % (Auto) 0.1 Neut # (Auto) 7.52 Lymph # (Auto) 1.6 [place] # (Auto) 0.5 Eos # (Auto) 0.0 Baso # (Auto) 0.0 Nucleated RBC % (a uto) 0 Nucleated RBCs # 0.0 Sodium 146 H Potassium 4.6 Chloride 112 H Carbon Dioxide 23 Anion Gap 15.6 BUN 35 H Creatinine 0.7 GFR Calculation Not Reportable Glucose 150 H POC Glucose 146 Calculated Osmolal ity 313 H Calcium 9.5 Total Bilirubin 0.3 AST 23 ALT 22 Alkaline Phosphata se 96 Total Protein 7.0 Albumin 3.3 L Globulin 3.7 Free T4 Free T3 02/21/20 02/21/20 02/21/20 20:11 17:40 04:55 WBC RBC Hgb Hct MCV MCH MCHC RDW Plt Count MPV Neut % (Auto) Lymph % (Auto) [place] % (Auto) Eos % (Auto) Baso % (Auto) Neut # (Auto) Lymph # (Auto) [place] # (Auto) Eos # (Auto) Baso # (Auto) Nucleated RBC % (a uto) Nucleated RBCs # Sodium Potassium Chloride Carbon Dioxide Anion Gap BUN Creatinine GFR Calculation Glucose POC Glucose 208 159 Calculated Osmolal ity Calcium Total Bilirubin AST ALT Alkaline Phosphata se Total Protein Albumin Globulin Free T4 1.88 H Free T3 2.7 Vitals: Last Vital Signs Temp 97.7 F 02/22/20 08:00 Pulse 103 H 02/22/20 08:00 Resp 16 02/22/20 08:00 BP 161/88 02/22/20 08:00 Pulse Ox 98 02/22/20 08:00 Discharge Plan Discharge Patient Disposition: Xfer SNF Condition: Stable Prescriptions: New Xarelto 10 mg Tablet 5 mg PO DAILY Qty: 0 RF: 0 Augmentin 875-125 mg tablet 1 tab PO BID 2 Days Qty: 4 RF: 0 Continued melatonin 1 mg Tablet Extended Release 3 mg PO BEDTIME RF: 0 Triple [employer] Collagen 100 % Powder 1 applic TOPICAL DAILY RF: 0 Pro-Stat AWC 17-100 gram-kcal/30 mL Liquid 1 ea PO BID RF: 0 atorvastatin 10 mg Tablet 40 mg PO DAILY RF: 0 donepezil 5 mg Tablet 5 mg PO DAILY RF: 0 gabapentin 100 mg Capsule 100 mg PO TID RF: 0 polyethylene glycol 3350 17 gram Powder In Packet 17 g PO DAILY RF: 0 venlafaxine 37.5 mg Tablet 37.5 mg PO BID RF: 0 memantine 10 mg Tablet 10 mg PO BID RF: 0 pantoprazole [Protonix] [address] for susp in packet 40 mg PO DAILY Qty: 30 RF: 0 folic acid 1 mg tablet 1 mg PO DAILY Qty: 30 RF: 0 hydrocodone-acetaminophen 5-325 mg Tablet 1 tab PO Q6H PRN (Reason: Pain) RF: 0 sennosides-docusate sodium [Senna-S] 8.6-50 mg Tablet 1 tab-cap PO BID RF: 0 alprazolam 0.25 mg Tablet 0.25 mg PO BID PRN (Reason: anxiety) RF: 0 acetaminophen [Tylenol] 325 mg Capsule 650 mg PO QID PRN (Reason: Pain) RF: 0 nitroglycerin 0.4 mg/hr Patch 24 Hour 1 patch transdermal Q24H Qty: 30 RF: 0 amlodipine 10 mg Tablet 10 mg PO DAILY Qty: 30 RF: 0 aspirin [Adult Low Dose Aspirin] 81 mg tablet,delayed release (DR/EC) 81 mg PO DAILY Qty: 30 RF: 0 Held lisinopril 10 mg Tablet 10 mg PO DAILY Qty: 30 RF: 0 Hold Instructions: per discretion of MD physician. held during admission for LIDYA and hyperkalemia Discontinued dexamethasone 6 mg Tablet 6 mg PO DAILY RF: 0 Discharge Orders: Discharge Order (Routine); Ordered 02/22/20 Ordered By: Megan Weir Referrals: Simon Garcia [Primary Care Provider] - 4-7 days (hospital discharge follow up ) Discharge Diet: As Directed Discharge Activity: Resume usual activity and As per PT/OT instructions Patient Instructions: Amoxicillin/Clavulanate Potassium (By mouth), Rivaroxaban (By mouth), Viral Pneumonia (DC), Urinary Tract Infection in Women (GEN) Discharge Attestations Time Spent in Discharge Care*: greater than 30 min Status at Discharge: Cognitive status at discharge: severely impaired cognition , Behavioral status at discharge: cooperative and dependent in ADL's , Overall status at discharge: patient is back to baseline Quality Metrics Clinical Quality Measures During this hospital stay, did patient experience: None Coding Level of Care Code Acute Radio Equipment Installer for Chg Fwd Diagnoses Altered mental status R41.82 Acute renal failure N17.9 Acute renal failure type: unspecified Pneumonia J18.9 Acute UTI N39.0 Hyperlipidemia E78.5 Hyperlipidemia type: unspecified DVT (deep venous thrombosis) I82.512 DVT location: lower extremity Affected thrombotic vein of extremity: femoral Chronicity: chronic Laterality: left Peripheral vascular disease I73.9 CVA (cerebral vascular accident) I63.89 CVA mechanism: other Alzheimer's dementia G30.9; F02.80 Alzheimer's disease onset: unspecified onset Dementia behavioral disturbance: without behavioral disturbance Hypertension I10 Hypertension type: essential hypertension Uremia N19 Acute kidney injury N17.9 Insulin dependent type 2 diabetes mellitus E11.9; Z79.4 Hyperglycemia R73.9 COVID-19 U07.1
[2020-02-22 12:00] VITALS: BP 161/88; PULSE 99; RESP 16; TEMP 36.5; O2SAT 98
[2020-02-22 14:02] LABS: Glucose Point of Care 109 mg/dL (70-110)
[2020-02-22 17:14] VITALS: BP 161/88; PULSE 99; RESP 16; TEMP 36.5; O2SAT 98
--- NOTE | 2020-02-22 18:00 | PC.RESP ---
Pulmonary Rehab information sent to patient.
== END 2020-02-22 16:30 | DRG 640 ==
LOC: ER 02-20 01:16 → MEDSURG 02-20 01:53
PROVIDERS: Emergency Medicine; Admitting Provider Family Medicine; Emergency Provider Emergency Medicine; PCP Family Medicine; Visit Provider Student in an Organized Health Care Education/Training Program
DX: E87.0 Hyperosmolality and hypernatremia (principal); J18.9 Pneumonia, unspecified organism; U07.1 COVID-19; N17.9 Acute kidney failure, unspecified; N39.0 Urinary tract infection, site not specified; I82.512 Chronic embolism and thrombosis of left femoral vein; J44.0 Chronic obstructive pulmonary disease with (acute) lower respiratory infection; E78.5 Hyperlipidemia, unspecified; Z86.73 Personal history of transient ischemic attack (TIA), and cerebral infarction without residual deficits; G30.9 Alzheimer's disease, unspecified; F02.80 Dementia in other diseases classified elsewhere, unspecified severity, without behavioral disturbance, psychotic disturbance, mood disturbance, and anxiety; I10 Essential (primary) hypertension; E11.51 Type 2 diabetes mellitus with diabetic peripheral angiopathy without gangrene; Z79.4 Long term (current) use of insulin; E11.65 Type 2 diabetes mellitus with hyperglycemia; Z98.62 Peripheral vascular angioplasty status; E87.5 Hyperkalemia; Z79.82 Long term (current) use of aspirin; F32.9 Major depressive disorder, single episode, unspecified; Z87.891 Personal history of nicotine dependence; E86.0 Dehydration; Z79.01 Long term (current) use of anticoagulants
CPT/HCPCS: 12345; 36415; 36416; 36600; 51702; 70450; 71045; 80053; 80061; 82009; 82728; 82803; 82962; 83605; 83615; 83721; 83735; 83880; 84100; 84145; 84439; 84443; 84481; 85025; 85378; 85384; 85610; 86140; 87040; 87086; 92610; 93005; 94664; 96372; 96375; 99284; G0378; J0456; J0696; J1815; J7030; J7050; J7799